=== PATIENT | female | born 1955 | race Caucasian/White ===

== ENCOUNTER 2018-01-11 08:16 | Observation (INO) | payer MEDICAID, SELFPAY ==
[2018-01-11] VITALS (19 sets, daily range): BP systolic 121–205; BP diastolic 67–106; PULSE 61–82; RESP 14–18; TEMP 36.4–37.2; O2SAT 96–100; BMI 28.6; BMI 27.6
--- NOTE | 2018-01-11 08:24 | EKG12_ITS ---
Test Reason : CP Blood Pressure : / mmHG Vent. Rate : 081 BPM Atrial Rate : 081 BPM P-R Int : 160 ms QRS Dur : 102 ms QT Int : 374 ms P-R-T Axes : 053 -01 012 degrees QTc Int : 434 ms Normal sinus rhythm Incomplete right bundle branch block Confirmed by GOLD JACOBS, CALLI ([id number]), brands editor KALA RICHEY ([id number] on 01/15/2018 2:12:42 PM Referred By: CITLALI Confirmed By:CALLI MALCOLM MD
--- NOTE | 2018-01-11 08:24 | CT_ITS ---
STUDY: CT BRAIN WITHOUT CONTRAST REASON FOR EXAM: Female, 62 years old. Dizziness and lightheadedness RADIATION DOSAGE (If Supplied By Facility): CTDIvol = ( 44.99 ) mGy, DLP = ( 779.24 ) mGycm TECHNIQUE: Transaxial CT imaging of the brain was performed without administration of intravenous contrast material. Individualized dose optimization techniques were used for this CT. COMPARISON: None. FINDINGS: Normal soft tissue structures. Normal calvarium. Normal size ventricles and extra-axial spaces for the patient's age. Normal white matter tracts of the cerebral hemispheres. Normal basal ganglia and thalami. Normal brainstem. Normal cerebellum. There is no intracranial hemorrhage. There are no findings of an acute ischemic infarction. Normal visualized paranasal sinuses. CT/Brain/Head without Contrast IMPRESSION: Chronic involutional changes of the brain. No acute hemorrhage Electronically Signed: Carroll Dukes MD at 8:45 EDT , Service support ,
--- NOTE | 2018-01-11 08:24 | RAD_ITS ---
STUDY: X-RAY CHEST REASON FOR EXAM: Female, 62 years old. Cough, dizziness TECHNIQUE: Single AP portable view of the chest. COMPARISON: None. FINDINGS: EKG leads overlie the chest There are interstitial fibrotic changes of the lungs. There is no demonstrated pleural abnormality. Normal size heart. Normal mediastinum and shahla. Normal visualized pulmonary arteries. Normal visualized aortic arch and descending thoracic aorta. Normal visualized thoracic spine. Normal visualized ribs, clavicles, and shoulders. There is no demonstrated abnormality of the visualized soft tissue structures of the upper abdomen. RAD/Chest 1 View IMPRESSION: Chronic interstitial changes, no superimposed acute pulmonary process Electronically Signed: Carroll Dukes MD at 8:56 EDT , Service support ,
--- NOTE | 2018-01-11 08:26 | ED.VISSUMM ---
- ER Visit Summary Date of Service: 01/11/18 Chief Complaint: [Dizziness, right facial numbness] History of Present Illness: The patient is a 62 F [who presents the emergency department with dizziness and feeling like her right face is drawn. It started this morning when she got out of the shower. She has a history of smoking but quit 12 years ago. She denies any other health problems. She does not visit a physician regularly. She denies any vision changes focal weakness or speech problems. She has been otherwise well.] Physical Examination: [] Blood pressure 205/95 other vitals within acceptable limits WN WD NAD PERRL EOMI MMM NECK supple and nontender, no masses RRR no murmur rub or gallop, no peripheral edema, symmetric radial pulses CTAB no respiratory distress ABDOMEN is soft and nontender, normal bowel sounds, no distension, no rebound or guarding SKIN is warm and dry no rashes Alert and Oriented x3, NIH is 1 for decreased sensation on the right face and right arm, she does have altered gait secondary to her dizziness which is a mild staggering No lymphadenopathy Test Results: [] Emergency Department Course and Treatment: [EKG is sinus at a rate of 81 with no acute ischemic changes. Blood work was unremarkable except for slightly elevated glucose. CT of the head shows chronic changes chest x-ray shows chronic changes. On reevaluation at 913 NIH remained 1. I did speak with the hospitalist regarding admission as I feel she needs further workup for possible stroke. Her blood pressure was treated. She was given 5 labetalol IV her P blood pressure was 178/78.] Treatment Plan: [] Disposition: [Admit] Impression: [TIA /stroke 2. Malignant hypertension] This note was generated with [employer] dictation software. It may contain incorrect words, spelling, and punctuation that were not noted in review of the chart prior to signing ED Disposition - Plan for ED Patient: Chief Complaint: Neuro S/Sx Referrals: Mendez Varma [Primary Care Provider] -
--- NOTE | 2018-01-11 08:28 | NURSING ---
NO OLD EKGS
[2018-01-11 08:35] LABS: Absolute Lymphocyte Count 1.36 X10^3/ul (0.83-4.51); Absolute Neutrophil Count 3.2 X10^3/uL (2.0-7.7); Basophil# 0.04 X10^3/uL; Basophil% 0.7 % (0-1); Eosinophil# 0.45 X10^3/uL; Eosinophils% 8.4 % (0-5); Hematocrit 39.6 % (37-47); Lymphocyte # 1.36 X10^3/ul (4.0); Lymphocyte % 25.3 % (19-41); Mean Corp Hgb Conc 32.8 g/gl (32-36); Mean Corpuscular Hgb 29.4 pg (27.0-32.0); Mean Corpuscular Volume 89.6 fL (81-99); Mean Platelet Vol. 9.8 fl (6.2-12.0); Monocyte# 0.32 X10^3/uL; Monocyte% 5.9 % (0-10); Neutrophil % 59.5 % (47-70); POSITIVE COUNT NO; POSITIVE DIFFERENTIAL NO; POSITIVE MORPHOLOGY NO; Platelet Count 251 K/mm3 (150-450); RBC Distribution Width CV 13.7 % (11.6-14.6); RBC Distribution Width SD 44.9 fl (35.1-43.9); Red Blood Count 4.42 M/mm3 (4.2-5.4); White Blood Count 5.4 K/mm3 (4.4-11.0)
[2018-01-11 08:42] LABS: International Normalized Ratio 0.9; Prothrombin Time (Protime)PT. 12.6 SECONDS (11.7-14.9)
[2018-01-11 08:43] LABS: Partial Thromboplast Time 28.5 Seconds (24.1-36.2)
[2018-01-11] MEDS: Labetalol 100 MG/20 ML Vial IV (08:48)
[2018-01-11 08:51] LABS: Bedside Glucose 148 mg/dL (70-110)
[2018-01-11 08:52] LABS: Anion Gap 8 (5-15); BUN 10 mg/dL (7-18); BUN/Creat Ratio 14.1 RATIO (10-20); Chloride 104 mmol/L (98-107); Creatinine, Serum 0.71 mg/dL (0.55-1.02); EST Glomerular Filtration Rate 88 mL/min (>60); Est Glom Filt Rate - Afr Amer 106 mL/min (>60); Estimated Creatinine Clearance 74.94 ml/min; Glucose 133 mg/dL (74-106); Potassium 3.8 mmol/L (3.5-5.1); Sodium Level 138 mmol/L (136-145)
--- NOTE | 2018-01-11 09:09 | NURSING ---
DR VASQUEZ FOR DR TUCKER
--- NOTE | 2018-01-11 09:13 | ED.RN ---
dr saucedo aware of bp. no further orders at this time
--- NOTE | 2018-01-11 09:32 | NURSING ---
PCU TIA,STROKE GARRETT/PAINTSIL
--- NOTE | 2018-01-11 09:42 | NURSING ---
123 NUMBNESS, TINGLING PAINTSIL
--- NOTE | 2018-01-11 10:37 | MRI_ITS ---
STUDY: MRA OF THE HEAD WITHOUT CONTRAST REASON FOR EXAM: Female, 62 years old. Numbness right face TECHNIQUE: 3-D geud-fj-niaabh (TOF) imaging was performed with MIPs. The study was performed unenhanced. COMPARISON: MR brain from today and CT brain from today FINDINGS: Normal bilateral petrous carotid arteries. Normal right cavernous carotid artery with a normal supraclinoid bifurcation. Normal left cavernous carotid artery with a normal supraclinoid bifurcation. Normal right A1 segments of the anterior cerebral artery. Normal left A1 segments of the anterior cerebral artery. Normal intact anterior communicating artery (ACOM). Normal bilateral A2 segments of the anterior cerebral arteries. Normal right M1 and M2 segments of the middle cerebral arteries, with a normal M1 bifurcation. Normal left M1 and M2 segments of the middle cerebral arteries, with a normal M1 bifurcation. There is non-visualization of the right posterior communicating artery (PCOM). There is non-visualization of the left posterior communicating artery (PCOM). Normal bilateral vertebral arteries. Normal basilar artery with a normal basilar bifurcation. The visualized bilateral superior cerebellar (SCA) arteries are normal. Normal bilateral P1, P2 and visualized P3 segments of the posterior cerebral arteries. There is no demonstrated aneurysm of the [place]. There is no major vessel occlusion or hemodynamically significant stenosis. There is no demonstrated abnormality of the visualized brain. MRI/MRA Head ONLY without Contrast IMPRESSION: Normal MRA of the head Electronically Signed: Jair Segura MD at 17:03 EDT , Service support ,
--- NOTE | 2018-01-11 10:37 | MRI_ITS ---
STUDY: MRI BRAIN WITHOUT CONTRAST REASON FOR EXAM: Female, 62 years old. Right facial numbness TECHNIQUE: Standardized multiplanar fat and water weighted pulse sequences were obtained. COMPARISON: CT brain from today FINDINGS: There is mild cerebral atrophy with widening of the extra-axial spaces and ventricular dilatation. Normal white matter tracts of the supratentorial brain. There is no evidence for recent intracranial ischemia or other cause of cytotoxic edema on diffusion weighted imaging (DWI). Normal bilateral basal ganglia. Normal thalami. There is no extra-axial fluid accumulation. Normal flow voids within the major intracranial circulation suggesting patency by spin echo criteria. Normal sella turcica, pituitary gland, infundibular stalk, optic chiasm and hypothalamus. Normal tectal plate and pineal gland. Normal midbrain, penny and medulla. Normal cerebellum. Normal basal cisterns. Normal bilateral temporal bones. Normal bilateral internal auditory canals. No demonstrated orbital abnormality, within the constraints of a routine brain study. Normal visualized paranasal sinuses. Normal calvarium and skull base. Normal visualized soft tissue structures. Normal visualized upper cervical spine. MRI/Brain without Contrast IMPRESSION: No acute disease Electronically Signed: Jair Segura MD at 16:39 EDT , Service support ,
--- NOTE | 2018-01-11 10:37 | MRI_ITS ---
STUDY: MRA NECK WITH AND WITHOUT CONTRAST REASON FOR EXAM: Female, 62 years old. Numbness and tingling right face since this morning TECHNIQUE: 3-D ndfi-ao-nnloog (TOF) imaging was performed in an 1.5 T MRI scanner. 6 ml of Gadavist was administered for the contrast enhanced images. COMPARISON: January 11, 2018 CT brain FINDINGS: RIGHT CAROTID ARTERIES: Normal right common carotid artery (CCA). Probable Flow void in bulb. Normal origin of the right internal carotid (ICA) artery without a hemodynamically significant stenosis. Normal visualized cervical portion of the right internal carotid artery. Normal origin of the right external carotid artery (ECA). LEFT CAROTID ARTERIES: Normal left common carotid artery (CCA). Probable flow void in bulb. Normal origin of the left internal carotid (ICA) artery without a hemodynamically significant stenosis. Normal visualized cervical portion of the left internal carotid artery. Normal origin of the left external carotid artery (ECA). VERTEBRAL ARTERIES: Normal antegrade flow within the bilateral vertebral artery without a hemodynamically significant stenosis. IMPRESSION: Motion limited exam. Probable flow void in the bulbs bilaterally although thrombus is difficult to exclude. Follow-up CTA would be more sensitive if clinically warranted. Electronically Signed: Jair Segura MD at 16:14 EDT , Service support , MRI/MRA Neck WITH and W/O Contrast
--- NOTE | 2018-01-11 11:27 | PCM.CONS.GEN ---
Reason for Consult Date of Consultation: 01/11/18 Reason for Consultation: RIGHT FACIAL NUMB History of Present Illness: The patient is a 62 year old left handed white female presented with right facial numbness starting about 630am noted after getting out of shower. also felt like she was going to pass out. reports light headed has passed but still right facial sensory loss. no other body part affect. no recent trigger except has had new glasses recently. per er note: The patient is a 62 F [who presents the emergency department with dizziness and feeling like her right face is drawn. It started this morning when she got out of the shower. She has a history of smoking but quit 12 years ago. She denies any other health problems. She does not visit a physician regularly. She denies any vision changes focal weakness or speech problems. She has been otherwise well.] Past Medical History Allergies No Known Allergies Allergy (Verified 01/11/18 08:19) Home Medications: Ambulatory Orders Medication Instructions Recorded Ibuprofen [Motrin] 400 mg PO DAILY PRN 01/11/18 Smoking Status: Former smoker Alcohol: None Drugs: None Review of Systems Constitutional: Denies: Chills, Fever, Weight Change HEENT: Denies: Head Aches, Sinus Congestion, Sinus Drainage Cardiovascular: Denies: Chest Pain, Palpitations Respiratory: Denies: Cough, Shortness of breath at rest, Sputum production Gastrointestinal: Denies: Abdominal Pain, Nausea, Vomiting Genitourinary: Denies: Dysuria Musculoskeletal: Denies: Joint Pain, Joint Tenderness Skin: Denies: Rash, Wounds Neurological: Denies: Numbness, Tingling, Focal weakness Psychiatric: Denies: Anxiety, Depression, Homicidal Ideations, Suicidal Ideations Hematologic/ Lymphatic: Denies: Easy Bruising, Easy Bleeding - Physical Exam General: Alert, Oriented x3, Cooperative HEENT: Atraumatic, PERRLA, EOMI, Normocephalic Neck: Supple, No JVD, Negative Carotid Bruits Lungs: Clear to auscultation, Normal air movement Cardiovascular: Regular rate, No murmurs Abdomen: Bowel Sounds Present, Soft, Non Tender Extremities: No edema, Capillary Refill Less than 3 Seconds Skin: No rashes, No breakdown Musculoskeletal: No Tenderness to Palpation of Joints or Extremities Neurological: Cranial nerves II-XII grossly intact Psych/Mental Status: Normal Affect, Appropriate Vital Signs Temp Pulse Resp BP Pulse Ox 36.6 C 80 18 150/92 H 98 01/11/18 10:20 01/11/18 10:56 01/11/18 10:20 01/11/18 10:30 01/11/18 10:30 Oxygen Flow Rate (L/min) 2 Oxygen Delivery Method Room Air Weight: 77.7 kg Body Mass Index (BMI) 27.6 Current Home Med List Medication Instructions Recorded Confirmed Type Ibuprofen [Motrin] 400 mg PO DAILY PRN 01/11/18 01/11/18 History Current Medications Generic Name Dose Route Start Last Admin Trade Name Freq PRN Reason Stop Dose Admin Acetaminophen 650 mg 01/11/18 10:37 Tylenol PO Q6H PRN PRN Mild Pain (1-3)/Temp > 100.7 F Aspirin 81 mg 01/12/18 08:00 Aspirin, Baby PO DAILY@0800 [facility] Bisacodyl 5 mg 01/11/18 10:37 Dulcolax PO DAILY PRN PRN Constipation Enoxaparin Sodium 40 mg 01/11/18 10:37 Lovenox SC DAILY@1000 [facility] Magnesium Hydroxide 30 ml 01/11/18 10:37 Milk Of Magnesia PO DAILY PRN Constipation Psyllium Hydrophilic Mucilloid 1 packet 01/11/18 10:37 Metamucil PO DAILY PRN PRN CONSTIPATION Laboratory Results - last 24 hr 01/11/18 01/11/18 01/11/18 08:20 08:20 08:20 WBC 5.4 RBC 4.42 Hgb 13.0 Hct 39.6 MCV 89.6 MCH 29.4 MCHC 32.8 RDW 13.7 RDW Differential 44.9 H Plt Count 251 MPV 9.8 Immature Gran % (Auto) 0.200 Neut % (Auto) 59.5 Lymph % (Auto) 25.3 Twiggs % (Auto) 5.9 Eos % (Auto) 8.4 H Baso % (Auto) 0.7 Absolute Neuts (auto) 3.2 Absolute Lymphs (auto) 1.36 Total Counted Not Reportable PT 12.6 INR 0.9 APTT 28.5 Sodium 138 Potassium 3.8 Chloride 104 Carbon Dioxide 26.0 Anion Gap 8 BUN 10 Creatinine 0.71 Estim Creat Clear Calc 74.94 Est GFR (MDRD) Af Amer 106 Est GFR (MDRD) Non-Af 88 BUN/Creatinine Ratio 14.1 Glucose 133 H Calcium 9.0 Troponin I < 0.015 POC Glucose 01/11/18 08:44 WBC RBC Hgb Hct MCV MCH MCHC RDW RDW Differential Plt Count MPV Immature Gran % (Auto) Neut % (Auto) Lymph % (Auto) Twiggs % (Auto) Eos % (Auto) Baso % (Auto) Absolute Neuts (auto) Absolute Lymphs (auto) Total Counted PT INR APTT Sodium Potassium Chloride Carbon Dioxide Anion Gap BUN Creatinine Estim Creat Clear Calc Est GFR (MDRD) Af Amer Est GFR (MDRD) Non-Af BUN/Creatinine Ratio Glucose Calcium Troponin I POC Glucose 148 H Assessment/Plan right facial numbness, possible thalamic infarct await mri echo tele asa statin
--- NOTE | 2018-01-11 12:48 | HP.PCM_ITS ---
Problem List (1) TIA (transient ischemic attack) Status: Acute (2) Alcohol use disorder, moderate, dependence Status: Chronic History of Present Illness Date of Admission: 01/11/18 Chief Complaint: Right facial numbness - 1 day The patient is a 62 year old F with no significant past medical history who comes in with complaints of right facial numbness that started this morning. Patient had complained of the face feeling drawn, her pain when she was getting out of shower. No other weakness or numbness in any part of her body. Denied any dizziness or chest pain or palpitation. NIHSS score was 1 for decreased sensation in the right face and right arm in the emergency room. Vitals in the emergency room was informed for temperature 91.1 F, heart rate of 82, blood pressure 205/95, respiratory rate of 16, SPO2 of 98% Admitting blood work was unremarkable. CT scan of the brain showed chronic involuntary changes. 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 Lives: With Family Smoking Status: Former smoker Alcohol: Heavy Drugs: None - *Family History Maternal History Items: Heart Disease Paternal History Items: Heart Disease Review of Systems Constitutional: Denies: Anorexia, Chills, Fever, Night Sweats, Weakness, Weight Change Eyes: Denies: Blurred vision, Cataracts, Conjunctivae Inflammation, Pain, Redness HEENT: Denies: Difficulty Hearing, Difficulty Swallowing, Head Aches, Hearing Changes, Sinus Congestion, Sinus Drainage, Sore Throat Cardiovascular: Denies: Chest Pain, Claudication, Chest Pressure, Orthopnea, Palpitations Respiratory: Denies: Cough, Hemoptysis, Pleuritic Pain, Shortness of breath at rest, Shortness of breath upon exertion, Sputum production Gastrointestinal: Denies: Abdominal Pain, Constipation, Hematemesis, Hematochezia, Nausea, Vomiting Genitourinary: Denies: Dysuria, Frequency, Incontinence Musculoskeletal: Denies: Joint Pain, Joint stiffness, Joint swelling, Joint Tenderness Skin: Denies: Rash, Wounds Neurological: Reports: Numbness - right side of face, Tingling. Denies: Focal weakness Psychiatric: Denies: Anxiety, Depression, Homicidal Ideations, Suicidal Ideations Endocrine: Denies: Change in Body Habitus, Heat/ Cold Intolerance Hematologic/ Lymphatic: Denies: Easy Bruising, Easy Bleeding VTE Information - Inpt Only VTE Present on Admission: No VTE Pharm Prophylaxis ordered?: Yes Patient Problems: Active and Suspected Problems TIA (transient ischemic attack) (Acute) - Physical Exam General: Alert, Oriented x3, Cooperative, No apparent distress HEENT: Atraumatic, PERRLA, EOMI, Normocephalic Oral: Moist Mucosa Neck: Supple, No JVD, Negative Carotid Bruits Lungs: Clear to auscultation, Normal air movement Cardiovascular: Regular rate, No murmurs Abdomen: Bowel Sounds Present, Soft, Non Tender Extremities: No edema, Capillary Refill Less than 3 Seconds Skin: No rashes, No breakdown Musculoskeletal: No Tenderness to Palpation of Joints or Extremities Lymphatic: No Cervical, Supraclavicular, or Inguinal Adenopathy Neurological: Cranial nerves II-XII grossly intact, Neuro grossly intact Psych/Mental Status: Normal Affect, Appropriate Vital Signs Temp Pulse Resp BP Pulse Ox 97.9 F 80 18 150/92 H 98 01/11/18 10:20 01/11/18 10:56 01/11/18 10:20 01/11/18 10:30 01/11/18 10:30 Oxygen Flow Rate (L/min) 2 Oxygen Delivery Method Room Air Weight: 77.7 kg Body Mass Index (BMI) 27.6 Laboratory Tests Past 24 Hrs 01/11/18 11:24 Troponin I < 0.015 Assessment/Plan All Active Problems TIA (transient ischemic attack) (Acute) 62 year old F with no significant past medical history who comes in with complaints of right facial numbness that started this morning. 1. Acute right-sided facial numbness likely secondary to TIA/CVA, risk factors are age, hypertension PLan: Admit to PCU, stroke work-up, neuro consult, aspirin 81mg daily, atorvastatin 20 mg QHS, follow-up on imaging- MRI brain, MRA head, neck, 2d-echo , lipid profile 2. Accelerated hypertension, will treat after MRI brain rules out CVA, lisinopril 10mg po daily, prn hydralazine. 3. Alcohol dependence, on CIWA and prn Ativan 4. DVT PPx- Lovenox SC Code Visit Inpatient E&M: 67413 Init Hosp L3
[2018-01-11] MEDS: Enoxaparin 40 MG/0.4 ML Syringe SC (13:27)
[2018-01-11] MEDS: Lisinopril 10 MG Tablet PO (18:18)
[2018-01-11] MEDS: Atorvastatin Calcium 20 MG Tablet PO (21:16)
[2018-01-12 03:05] VITALS: PULSE 57
[2018-01-12 03:40] VITALS: BP 119/65; PULSE 72; RESP 14; TEMP 36.4; O2SAT 97
[2018-01-12 06:15] LABS: Anion Gap 9 (5-15); BUN 13 mg/dL (7-18); BUN/Creat Ratio 20.6 RATIO (10-20); Calcium,Total 8.6 mg/dL (8.5-10.1); Chloride 107 mmol/L (98-107); Cholesterol 179 mg/dL (200); Creatinine, Serum 0.63 mg/dL (0.55-1.02); EST Glomerular Filtration Rate 100 mL/min (>60); Est Glom Filt Rate - Afr Amer 122 mL/min (>60); Estimated Creatinine Clearance 84.45 ml/min; Glucose 112 mg/dL (74-106); High Density Lipoprotein 56 mg/dL; Potassium 3.8 mmol/L (3.5-5.1); Sodium Level 143 mmol/L (136-145); Triglycerides 167 mg/dL; Very Low Density Lipoprotein 33 mg/dL (5-40)
[2018-01-12 06:59] VITALS: PULSE 108
[2018-01-12 07:34] VITALS: BP 123/60; PULSE 56; RESP 18; TEMP 36.4; O2SAT 96
[2018-01-12] MEDS: Enoxaparin 40 MG/0.4 ML Syringe SC (07:36)
[2018-01-12] MEDS: Thiamine Hydrochloride 100 MG Tablet PO (07:36)
[2018-01-12] MEDS: Aspirin 81 MG TAB.CHEW PO (07:36)
[2018-01-12] MEDS: Lisinopril 10 MG Tablet PO (07:37)
[2018-01-12] MEDS: Folic Acid/Vitamin B Comp W-C 1 Capsule 1 CAP PO (07:37)
[2018-01-12 10:59] VITALS: PULSE 65
[2018-01-12 11:30] VITALS: BMI 27.6
--- NOTE | 2018-01-12 11:33 | CT_ITS ---
STUDY: CTA NECK WITH CONTRAST REASON FOR EXAM: Female, 62 years old. FOLLOW UP ABNORMAL MRA. RADIATION DOSAGE (If Supplied By Facility): CTDIvol = ( 19.05 ) mGy, DLP = ( 545.93 ) mGycm TECHNIQUE: CT angiography with multi-detector data acquisition was performed from the aortic arch to the skull base following intravenous administration of 100CC ml of Isovue 370 contrast. MIP images were reconstructed from the axial data set. Post-processing of the angiographic images was performed, with multiplanar reformation and 3D reconstruction. Individualized dose optimization techniques were used for this CT. COMPARISON: None. FINDINGS: AORTIC ARCH: There is mild atherosclerotic plaque RIGHT CAROTID ARTERIES: Normal right common carotid artery (CCA). There is mild atherosclerotic plaque formation with minimal narrowing of the right carotid bulb. There is mild atherosclerotic plaque formation of the origin of the right internal carotid artery with less than 50% cross sectional diameter stenosis. Normal visualized cervical portion of the right internal carotid artery. Normal origin of the right external carotid artery (ECA). LEFT CAROTID ARTERIES: Normal left common carotid artery (CCA). There is moderate atherosclerotic plaque formation with moderate narrowing of the carotid bulb. There is mild atherosclerotic plaque formation of the origin of the left internal carotid artery with approximately 50% cross sectional diameter stenosis. Normal visualized cervical portion of the left internal carotid artery. Normal origin of the left external carotid artery (ECA). VERTEBRAL ARTERIES: Normal bilateral vertebral arteries. CT/CTA Neck W/WO Contrast IMPRESSION: 50% stenosis of the left ICA. Less than 50% stenosis of the right ICA. Electronically Signed: Larua Mayer MD at 12:21 EDT Tel , Service support ,
--- NOTE | 2018-01-12 12:03 | DS.PCM_ITS ---
Discharge Date and Diagnosis Date of Admission: 01/11/18 Date of Discharge: 01/12/18 - Primary Discharge Diagnosis Active and Suspected Problems TIA (transient ischemic attack) (Acute) Accelerated hypertension/hypertensive urgency Alcohol dependency - Secondary Discharge Diagnosis Chronic Problems Alcohol use disorder, moderate, dependence (Chronic) Hospital Course and Treatment Imaging Results: Clinical Impression(s) from Imaging Studies Brain CT 01/11/18 08:24 IMPRESSION: Chronic involutional changes of the brain. No acute hemorrhage Electronically Signed: Carroll Dukes MD at 8:45 EDT , Service support , Chest X-Ray 01/11/18 08:24 IMPRESSION: Chronic interstitial changes, no superimposed acute pulmonary process Electronically Signed: Carroll Dukes MD at 8:56 EDT , Service support , Brain MRI 01/11/18 10:37 IMPRESSION: No acute disease Electronically Signed: Jair Segura MD at 16:39 EDT , Service support , Head MRA 01/11/18 10:37 IMPRESSION: Normal MRA of the head Electronically Signed: Jair Segura MD at 17:03 EDT , Service support , Neck MRA 01/11/18 10:37 Neck CTA 01/12/18 11:33 IMPRESSION: 50% stenosis of the left ICA. Less than 50% stenosis of the right ICA. Electronically Signed: Laura Mayer MD at 12:21 EDT Tel , Service support , 01/12/18 11:33 CTA Neck W/WO Contrast [CT] Urgent Neurology Operations: None Procedures: 2-D Echocardiogram Summary of Care Provided: 62 year old F with no significant past medical history is admitted in with complaints of right facial numbness that started on the morning of the admission. 1. Acute right-sided facial numbness likely secondary to TIA. CT scan of the brain initially did not show any acute hemorrhage . MRI of brain was negative for acute stroke. MRA of head was negative. MRA of the neck showed probable flow void in the bulbs bilaterally, thrombus was said to be difficult to exclude. CTA of the head showed 50% stenosis of the left ICA , less than 50% stenosis of right ICA. Lipid profile showed total triglycerides of 167, total cholesterol 179, LDL 90, HDL 56 He was started on aspirin 81 mg p.o. daily, atorvastatin 20 mg daily. Neurology was consulted, patient's 2D echo was pending. 2. Accelerated hypertension/hypertensive urgency, BP was initially uncontrolled , improved during the admission, started on lisinopril 10mg po daily, follow up with a primary care doctor in the outpatient. 3. Alcohol dependence, advised to quit, managed on CIWA and prn Ativan Discharge Diet: Low fat/ Low Cholesterol, 2000 mg Sodium Diet Discharge Activity: Return to Normal Activity Home Medications: Medications to take at Discharge Aspirin [Aspirin, Baby] 81 mg PO DAILY@0800 #30 tab.chew 01/12/18 Atorvastatin Calcium [Lipitor] 20 mg PO QHS #30 tab 01/12/18 Folic Acid 1 mg PO DAILY #30 tab 01/12/18 Lisinopril [Zestril] 10 mg PO DAILY #30 tab 01/12/18 Thiamine Hydrochloride [Vitamin B1] 100 mg PO DAILYCM #30 tab 01/12/18 Following Prescrptions Were Given to Patient: Aspirin [Aspirin, Baby] 81 mg PO DAILY@0800 #30 tab.chew Atorvastatin Calcium [Lipitor] 20 mg PO QHS #30 tab Folic Acid 1 mg PO DAILY #30 tab Lisinopril [Zestril] 10 mg PO DAILY #30 tab Thiamine Hydrochloride [Vitamin B1] 100 mg PO DAILYCM #30 tab Primary Care Physician: Mendez Varma [Primary Care Provider] - Please follow up with your Primary Care Physician in: within 1-2 weeks Disposition: Home Minutes spent on discharge:: 35 Patient Condition:: Stable Medical Necessity - Tobacco Use Smoking Status: Former smoker Meaningful Use Info Meaningful Use Diagnoses (Choose all that apply): None applicable Code Visit Inpatient E&M: 07930 Disch Hosp
--- NOTE | 2018-01-12 12:03 | DCINST_ITS ---
- Discharge Diagnoses Current Active Problems: Current Active and Chronic Problems TIA (transient ischemic attack) (Acute) Alcohol use disorder, moderate, dependence (Chronic) Reason(s) for Visit for Discharge Instructions: Right sided facial numbness You will use the following diet at home:: Cardiac Your food should be the consistency of: Regular Your liquids should be the consistency of: Regular/Thin Discharge Activity: Return to Normal Activity Additional Instructions: You are advised to quit drinking. Limit alcohol use to 1 drink/day. Continue on aspirin, atorvastatin. You have been started on Lisinopril for blood pressure. Follow-up with your primary doctor for follow-up of BP. You will also need repeat blood work when you see your primary care doctor. You have been prescribed folic acid and thiamine for 1 month. Allergies/Adverse Reactions: Allergies No Known Allergies Allergy (Verified 01/11/18 08:19) Medications to take at Discharge Aspirin [Aspirin, Baby] 81 mg PO DAILY@0800 #30 tab.chew 01/12/18 Atorvastatin Calcium [Lipitor] 20 mg PO QHS #30 tab 01/12/18 Folic Acid 1 mg PO DAILY #30 tab 01/12/18 Lisinopril [Zestril] 10 mg PO DAILY #30 tab 01/12/18 Thiamine Hydrochloride [Vitamin B1] 100 mg PO DAILYCM #30 tab 01/12/18 The following prescriptions were given: Aspirin [Aspirin, Baby] 81 mg PO DAILY@0800 #30 tab.chew Atorvastatin Calcium [Lipitor] 20 mg PO QHS #30 tab Folic Acid 1 mg PO DAILY #30 tab Lisinopril [Zestril] 10 mg PO DAILY #30 tab Thiamine Hydrochloride [Vitamin B1] 100 mg PO DAILYCM #30 tab Orders to be completed after discharge: Basic Metabolic Profile (BMP) Time Frame: 1 Week, Location: Laboratory Primary Care Physician: Mendez Varma [Primary Care Provider] - Please follow up with your Primary Care Physician in: within 1-2 weeks Test Results: Test results from this visit will be discussed in further detail at your follow- up appointment, if applicable. Proposed Discharge Date: 01/12/18
[2018-01-12 12:16] VITALS: BP 122/56; PULSE 64; RESP 18; TEMP 36.6; O2SAT 99
== END 2018-01-12 14:09 | disposition home or self-care (01) ==
LOC: ED 09:04 → PCU 09:59
PROVIDERS: Admitting Provider Internal Medicine; Emergency Provider Emergency Medicine; Family Provider Family Medicine; PCP Family Medicine; Visit Provider Internal Medicine
DX: G45.9 Transient cerebral ischemic attack, unspecified (principal); I10 Essential (primary) hypertension; I16.0 Hypertensive urgency; F10.20 Alcohol dependence, uncomplicated; Z87.891 Personal history of nicotine dependence
CPT/HCPCS: 36415; 70450; 70498; 70544; 70549; 70551; 71045; 80048; 80061; 82962; 84484; 85025; 85610; 85730; 92526; 93005; 96372; 96374; 97802; 99218; 99285; A9585; Q9967; A4216; G0378

== ENCOUNTER → 2018-01-21 10:27 | Outpatient (CLI) | payer MEDICARE, MEDICAID, SELFPAY ==
[2018-01-21 12:07] LABS: Anion Gap 6 (5-15); BUN 12 mg/dL (7-18); BUN/Creat Ratio 16.8 RATIO (10-20); Calcium,Total 9.2 mg/dL (8.5-10.1); Chloride 104 mmol/L (98-107); Creatinine, Serum 0.71 mg/dL (0.55-1.02); EST Glomerular Filtration Rate 87 mL/min (>60); Est Glom Filt Rate - Afr Amer 106 mL/min (>60); Glucose 98 mg/dL (74-106); Potassium 4.3 mmol/L (3.5-5.1); Sodium Level 137 mmol/L (136-145)
== END ==
PROVIDERS: Family Provider Family Medicine; PCP Family Medicine; Visit Provider Internal Medicine
DX: I10 Essential (primary) hypertension (principal); Z86.73 Personal history of transient ischemic attack (TIA), and cerebral infarction without residual deficits
CPT/HCPCS: 36415; 80048

== ENCOUNTER → 2018-02-12 13:08 | Outpatient (CLI) | payer MEDICARE, MEDICAID, SELFPAY ==
[2018-02-12 14:04] LABS: Anion Gap 10 (5-15); BUN 14 mg/dL (7-18); BUN/Creat Ratio 17.6 RATIO (10-20); Calcium,Total 9.9 mg/dL (8.5-10.1); Chloride 104 mmol/L (98-107); EST Glomerular Filtration Rate 77 mL/min (>60); Est Glom Filt Rate - Afr Amer 93 mL/min (>60); Glucose 98 mg/dL (74-106); Potassium 4.4 mmol/L (3.5-5.1); Sodium Level 137 mmol/L (136-145)
[2018-02-12 14:19] LABS: Hemoglobin A1c 5.6 % (4.2-6.3)
== END ==
PROVIDERS: Family Provider Family Medicine; PCP Family Medicine; Visit Provider Family Medicine
DX: I10 Essential (primary) hypertension (principal); R73.01 Impaired fasting glucose
CPT/HCPCS: 36415; 80048; 83036

== ENCOUNTER 2018-12-24 19:58 | Emergency (ER) | payer MEDICARE, SELFPAY ==
[2018-12-24 20:00] VITALS: BP 177/96; PULSE 101; RESP 17; TEMP 37; O2SAT 97; BMI 27.8
--- NOTE | 2018-12-24 20:40 | ED.VISSUMM ---
- ER Visit Summary Date of Service: 12/24/18 Chief Complaint: Foreign body sensation throat History of Present Illness: The patient is a 63 F presenting with foreign body sensation throat. Patient was eating a pork chop last night. She states since that time she has been unable to swallow. When trying to swallow she has to spit out liquids immediately. This happened 4 to 5 years ago as well. At that time she had endoscopy per Dr. Mathur. Denies other complaints. Physical Examination: Vitals are stable. Patient is afebrile. Alert no acute distress. HEENT exam is unremarkable. Neck is supple. Lungs are clear and equal bilaterally. Heart is regular rate and rhythm. Abdomen is soft nontender nondistended. Extremities are unremarkable. Skin is warm and dry. No focal neurologic deficit. Remainder of exam is unremarkable. Emergency Department Course and Treatment: Patient was given glucagon IV. She is now able to tolerate p.o. Her symptoms have resolved. She is advised to follow up with Dr. Langston. Advised return to ED for worsening complaints. Disposition: Discharge home Impression: Esophageal foreign body, resolved This note was generated with [employer] customer insight dictation software. It may contain incorrect words, spelling, and punctuation that were not noted in review of the chart prior to signing ED Disposition - Plan for ED Patient: Referrals: Mendez Varma [Primary Care Provider] -
[2018-12-24] MEDS: Glucagon 1 MG/ML Syringe IV (20:55)
--- NOTE | 2018-12-24 21:34 | ED.DEP ---
ED Disposition - Plan for ED Patient: Instructions: ESOPHAGEAL FOREIGN BODY, Resolved Referrals: Mendez Varma [Primary Care Provider] - Jamaal Langston MD [NON-STAFF] -
[2018-12-24 21:56] VITALS: BP 143/74; PULSE 84; RESP 17; O2SAT 98
== END 2018-12-24 21:56 | disposition home or self-care (01) ==
PROVIDERS: Emergency Provider Emergency Medicine; Family Provider Family Medicine; PCP Family Medicine
DX: T18.128A Food in esophagus causing other injury, initial encounter (principal); X58.XXXA Exposure to other specified factors, initial encounter; Y93.9 Activity, unspecified; Y92.9 Unspecified place or not applicable; I10 Essential (primary) hypertension; E78.00 Pure hypercholesterolemia, unspecified; Z79.82 Long term (current) use of aspirin; Z79.899 Other long term (current) drug therapy
CPT/HCPCS: 96374; 99284; J7030; A4216; J1610

== ENCOUNTER → 2018-12-31 | Outpatient (CLI) | payer MEDICARE, SELFPAY ==
[2018-12-24 20:00] VITALS: BMI 27.8
[2018-12-31 17:30] LABS: Absolute Lymphocyte Count 1.66 X10^3/uL (0.83-4.51); Absolute Neutrophil Count 4.7 X10^3/uL (2.0-7.7); Basophil# 0.05 X10^3/uL; Basophil% 0.7 % (0-1); Eosinophil# 0.43 X10^3/uL; Eosinophils% 5.8 % (0-5); Hematocrit 38.5 % (37-47); Hemoglobin 12.6 g/dL (12.0-15.0); Lymphocyte # 1.66 X10^3/ul (4.0); Lymphocyte % 22.4 % (19-41); Mean Corp Hgb Conc 32.7 g/dL (32-36); Mean Corpuscular Hgb 29.7 pg (27.0-32.0); Mean Corpuscular Volume 90.8 fL (81-99); Mean Platelet Vol. 10.5 fl (6.2-12.0); Monocyte% 6.7 % (0-10); NRBC Flagged by Analyzer 0 % (0-5); Neutrophil # 4.74 X10^3/uL (2.7-7.7); Platelet Count 259 K/mm3 (150-450); Red Blood Count 4.24 M/mm3 (4.2-5.4); White Blood Count 7.4 K/mm3 (4.4-11.0)
[2018-12-31 18:17] LABS: Anion Gap 9 (5-15); BUN 14 mg/dL (7-18); BUN/Creat Ratio 20.8 RATIO (10-20); Calcium,Total 9.4 mg/dL (8.5-10.1); Chloride 102 mmol/L (98-107); Creatinine, Serum 0.67 mg/dL (0.55-1.02); EST Glomerular Filtration Rate 93 mL/min (>60); Est Glom Filt Rate - Afr Amer 113 mL/min (>60); Glucose 79 mg/dL (74-106); Potassium 3.7 mmol/L (3.5-5.1); Sodium Level 138 mmol/L (136-145)
== END | disposition home or self-care (01) ==
LOC: BFHLAB 16:32
PROVIDERS: Family Provider Family Medicine; PCP Family Medicine; Visit Provider Family Medicine
DX: I10 Essential (primary) hypertension (principal); E78.5 Hyperlipidemia, unspecified; Z86.73 Personal history of transient ischemic attack (TIA), and cerebral infarction without residual deficits
CPT/HCPCS: 36415; 80048; 84443; 85025

== ENCOUNTER → 2019-01-15 | Outpatient (CLI) | payer MEDICARE, SELFPAY ==
[2018-12-24 20:00] VITALS: BMI 27.8
--- NOTE | 2019-01-15 12:55 | CDU_ITS ---
Reason For Study: Hx of TIA Rt. Velocities/BP Lt. Velocities/BP Prox CCA 81/19 cm/sec. Prox CCA 106/23 cm/sec. Mid CCA 70/18 cm/sec. Mid CCA 72/22 cm/sec. Dist CCA 79/19 cm/sec. Dist CCA 80/23 cm/sec. Prox ICA 92/30 cm/sec. Prox ICA 105/30 cm/sec. Mid ICA 92/30 cm/sec. Mid ICA 116/43 cm/sec. Dist ICA 94/31 cm/sec. Dist ICA 82/28 cm/sec. Rt. ICA/CCA = 1.3. Lt. ICA/CCA = 1.6. Prox ECA 155/23 cm/sec. Prox ECA 120/18 cm/sec. Rt. Vert. 32/9 cm/sec. Lt. Vert. 51/16 cm/sec. Right Extracranial There is homogeneous, smooth atherosclerotic plaque noted in the right common carotid artery. There is heterogeneous, irregular atherosclerotic plaque noted in the right internal carotid artery. There is heterogeneous, irregular atherosclerotic plaque noted in the right external carotid artery. Antegrade flow is noted in the right vertebral artery. Left Extracranial There is intimal thickening but no significant atherosclerotic plaque noted in the left common carotid artery. There is heterogeneous, irregular atherosclerotic plaque noted in the left internal carotid artery. There is heterogeneous, irregular atherosclerotic plaque noted in the left external carotid artery. Antegrade flow is noted in the left vertebral artery. Procedure Carotid Duplex [id number]. Exam performed in department. Interpretation Summary Mild (<50%) stenosis right extracranial internal carotid. Mild (<50%) stenosis left extracranial internal carotid. Flow within the vertebral arteries is antegrade bilaterally. Ordering Physician: Mendez Varma Referring Physician: Mendez Varma Performed By: Diane Markham, DORCAS, RVT
== END | disposition home or self-care (01) ==
LOC: CVS 12:53
PROVIDERS: Family Provider Family Medicine; PCP Family Medicine; Referring Provider Family Medicine; Visit Provider Family Medicine
DX: I65.23 Occlusion and stenosis of bilateral carotid arteries (principal)
CPT/HCPCS: 93880

== ENCOUNTER 2020-02-01 08:18 | Emergency (ER) | payer MEDICARE, SELFPAY ==
[2020-02-01] VITALS (10 sets, daily range): BP systolic 135–181; BP diastolic 64–101; PULSE 62–105; RESP 15–23; TEMP 36.8; O2SAT 96–100; BMI 27.4
--- NOTE | 2020-02-01 08:34 | EKG12_ITS ---
Test Reason : FOREIGN BODY Blood Pressure : / mmHG Vent. Rate : 066 BPM Atrial Rate : 066 BPM P-R Int : 160 ms QRS Dur : 096 ms QT Int : 392 ms P-R-T Axes : 054 019 018 degrees QTc Int : 410 ms Normal sinus rhythm with sinus arrhythmia RSR' or QR pattern in V1 suggests right ventricular conduction delay Borderline ECG Confirmed by JESSE JACOBS, GWEN ([id number]), scientific publications editor JESUS SCHERER ([id number]) on 02/02/2020 2:44:20 PM Referred By: NARESH Confirmed By:GWEN MOLINA MD
--- NOTE | 2020-02-01 08:35 | RAD_ITS ---
STUDY: X-RAY CHEST REASON FOR EXAM: Female, 65 years old. Hemoptysis, choked on a hamburger last night now unable to swallow and coughing up blood. TECHNIQUE: PA and lateral chest COMPARISON: 01/11/2018 FINDINGS: There is no visible radiodense foreign body along the course of the esophagus. Trachea and proximal bronchial air stripes appear patent. The lungs are clear bilaterally, symmetrically and normally inflated. Normal cardiomediastinal silhouette. RAD/Chest PA and Lateral IMPRESSION: No acute thoracic process is evident. Electronically Signed: Ulises Ambrosio MD at 9:35 EDT Tel , Service support ,
--- NOTE | 2020-02-01 08:35 | ED.VIS.GEN ---
History of Present Illness Chief Complaint: Foreign Body Informant: Patient Onset: Yesterday Context: Sudden Onset Timing: Continuous Narrative: Patient is a 65-year-old female with history of esophageal impaction, resolved with IV glucagon 1 year ago, hypertension, hyperlipidemia and TIA presenting with foreign body sensation in her esophagus. Patient states eating hamburger last night when she felt like a piece got stuck. She threw up most of it she thought she still not been able to tolerate anything by mouth since. She is anytime she tries to drink water she will throw up. She not take her medication this morning because of it. She states this morning she had an episode of coughing and throwing up and blood came out. She denies any clots of blood. She states it was just red liquid. She also had an episode of severe right upper quadrant abdominal pain lasting for 2 to 3 minutes during her coughing episode. Patient not sure if the blood came from her esophagus or her lungs. She denies any history of hemoptysis or hematemesis. She denies any change in bowel movements. She states she now has a dull pain in her right upper quadrant from the episode. Patient's last EGD was 2 to 3 years ago and she states it was normal. She never followed up with GI after her esophageal food bolus last year. Patient denies associated chest pain or difficulty breathing. States she is otherwise feeling well before she ate last night. No other complaints at this time. Patient is on 81 mg of aspirin daily but no other anticoagulation. Past Medical History - Allergies and Home Meds Allergies/Adverse Reactions: Allergies No Known Allergies Allergy (Verified 02/01/20 08:21) Primary Care Physician: Sg Jon MD [STAFF PHYSICIAN] - 1 Week Mendez Varma [Primary Care Provider] - Past Medical History: - - TIA, hypertension, hyperlipidemia Surgical History: noncontributory, - - Tubal ligation Smoking Status: Former smoker - Family History Maternal Family History: Reports: Heart Disease Paternal Family History: Reports: Heart Disease Review of Systems General: Denies: Chills, Fever, Sweats Eyes: Denies: Visual changes - bilaterally, Diplopia ENT: Denies: Rhinorrhea, Sore throat Cardiovascular: Denies: Chest pain, Palpitations Respiratory: Reports: Cough, - - Hemoptysis. Denies: Dyspnea, Dyspnea on exertion Gastrointestinal: Reports: Abdominal pain, Vomiting. Denies: Nausea, Diarrhea, Melena, Hematochezia Genitourinary: Denies: Dysuria, Hematuria, Frequency Musculoskeletal: Denies: Back pain, Extremity Pain Skin: Denies: Rash, Wounds Neurological: Denies: Headache, Weakness, Numbness Physical Exam Vital Signs/Narrative: Vital Signs Temp Pulse Resp BP Pulse Ox 02/01/20 08:18 98.2 F 99 16 157/101 H 100 Inital Vital Signs reviewed: Yes General: Well nourished, Well developed, No Acute Distress Head: Normocephalic, Atraumatic Eyes: Perrl, EOMI. Negative for: Pale conjunctiva ENT: Moist mucous membranes, No rhinorrhea Neck: Supple, Nontender, No JVD Cardiovascular: Regular rate, Regular rhythm, No murmurs Respiratory: No distress, CTA bilaterally, Chest nontender Abdomen: Soft, Nontender, Nondistended, Normal bowel sounds. Negative for: Guarding, Rebound tenderness, Armenta's sign Back: Nontender, Normal Inspection Extremities: Nontender, No edema Skin: Normal color, No rash Neurological: Alert, Oriented x3, Cranial nerves II-XII grossly intact, Normal Strength, Normal Sensation Psychological: Normal affect, Normal Mood Diagnostic/Tx/Re-eval Clinical Impression(s) from Imaging Studies Chest X-Ray 02/01/20 08:35 IMPRESSION: No acute thoracic process is evident. Electronically Signed: Ulises Ambrosio MD at 9:35 EDT Tel , Service support , Laboratory Data 02/01/20 02/01/20 02/01/20 08:58 08:58 08:58 WBC 8.0 RBC 4.46 Hgb 13.1 Hct 40.6 MCV 91.0 MCH 29.4 MCHC 32.3 RDW Std Deviation 43.6 RDW Coeff of [place] 13.2 Plt Count 251 MPV 9.6 Immature Gran % (Auto) 0.100 Neut % (Auto) 74.0 H Lymph % (Auto) 11.9 L [place] % (Auto) 7.0 Eos % (Auto) 6.5 H Baso % (Auto) 0.5 Absolute Neuts (auto) 6.0 Absolute Lymphs (auto) 0.96 Nucleated RBC % 0 PT 12.6 INR 1.0 Sodium 142 Potassium 3.9 Chloride 109 H Carbon Dioxide 27.0 Anion Gap 6 BUN 8 Creatinine 0.72 Estim Creat Clear Calc 51.11 Est GFR (MDRD) Af Amer 104 Est GFR (MDRD) Non-Af 86 BUN/Creatinine Ratio 11.1 Glucose 122 H Calcium 9.1 Total Bilirubin 1.00 AST 17 ALT 27 Alkaline Phosphatase 133 H Troponin I < 0.015 Total Protein 7.7 Albumin 4.0 Globulin 3.7 Albumin/Globulin Ratio 1.1 Lipase 85 Urine Color Urine Clarity Urine pH Ur Specific [place] Urine Protein Urine Glucose (UA) Urine Ketones Urine Occult Blood Urine Nitrite Urine Bilirubin Urine Urobilinogen Ur Leukocyte Esterase Urine RBC Urine WBC Ur Squamous Epith Cells Urine Bacteria Hyaline Casts Urine Mucus 02/01/20 08:58 WBC RBC Hgb Hct MCV MCH MCHC RDW Std Deviation RDW Coeff of [place] Plt Count MPV Immature Gran % (Auto) Neut % (Auto) Lymph % (Auto) [place] % (Auto) Eos % (Auto) Baso % (Auto) Absolute Neuts (auto) Absolute Lymphs (auto) Nucleated RBC % PT INR Sodium Potassium Chloride Carbon Dioxide Anion Gap BUN Creatinine Estim Creat Clear Calc Est GFR (MDRD) Af Amer Est GFR (MDRD) Non-Af BUN/Creatinine Ratio Glucose Calcium Total Bilirubin AST ALT Alkaline Phosphatase Troponin I Total Protein Albumin Globulin Albumin/Globulin Ratio Lipase Urine Color Yellow Urine Clarity Cloudy Urine pH 6.0 Ur Specific [place] 1.020 Urine Protein 30 H Urine Glucose (UA) Normal Urine Ketones 5 H Urine Occult Blood 50 H Urine Nitrite Negative Urine Bilirubin Negative Urine Urobilinogen 1 H Ur Leukocyte Esterase 500 H Urine RBC 0-5 SEEN Urine WBC 10-25 SEEN Ur Squamous Epith Cells 10-25 SEEN Urine Bacteria 1+ Hyaline Casts 0-5 SEEN Urine Mucus RARE - Rhythm Strip Rhythm Strip: Sinus Rhythm Rate: 66 Ectopy: None - EKG Initial EKG Interpretation: Sinus Rhythm, - - Normal sinus rhythm at a rate of [address] segments Normal intervals - Medical Decision Making Patient evaluated for esophageal impaction that occurred after eating a hamburger last night. She is now developed associated hemoptysis and right upper quadrant abdominal pain. Is not clear if it is actually hemoptysis versus hematochezia. I suspect it is more from her esophagus/stomach and not her lungs that she has no other respiratory symptoms is not coughing in the emergency room. Her abdominal exam is benign. Patient is not tolerate p.o. in the emergency room. Lab work-up is relatively unremarkable. I suspect patient has retained esophageal food impaction and does not respond to IV glucagon. Discussed with surgery on-call, Dr. Jon will come in to do a bedside EGD. This went well and patient had resolution of the impaction by pushing it through. There was a small area of early necrosis of the esophagus that GI would like to treat with Carafate and omeprazole. This is prescribed for the patient. Patient has resolution of her symptoms after endoscopy. She is instructed to follow-up with GI in 1 week and on a soft/liquid diet. Patient is counseled on signs and symptoms requiring return to the emergency room. Patient verbalizes agreement and understand this plan. Patient discharged home in stable and improved condition. Procedures Procedure(s): Procedural sedation. Patient monitored with continuous telemetry, pulse oximetry and end-tidal CO2. She is previously premedicated with Zofran. She is given a total of 70 mg of IV propofol in multiple aliquots. EGD performed by Dr. Jon. Patient had no immediate complications and tolerated procedure well. She had no episodes of apnea, bradycardia, or hypoxia. ED Disposition - Plan for ED Patient: Disposition: Home or Assisted Living Diagnosis: Esophageal obstruction due to food impaction Instructions: Eating a Soft Diet, ED Foreign Body Esophageal Rslv Prescriptions: Sucralfate [Carafate] 1 gm PO 4X/DAY #28 tab Prescription Printed Omeprazole 40 mg PO DAILY #14 capsule.dr Prescription Printed Referrals: Mendez Varma [Primary Care Provider] - Sg Jon MD [STAFF PHYSICIAN] - 1 Week Additional Instructions: Stick to liquids for the next 24 hours and then advance her diet to soft foods only. Please follow-up with Dr. Jon in 1 week. Return with any worsening symptoms and or call Dr. Jon's office.
[2020-02-01 09:06] LABS: Absolute Lymphocyte Count 0.96 X10^3/uL (0.83-4.51); Basophil# 0.04 X10^3/uL; Basophil% 0.5 % (0-1); Eosinophil# 0.52 X10^3/uL; Eosinophils% 6.5 % (0-5); Hematocrit 40.6 % (37-47); Hemoglobin 13.1 g/dL (12.0-15.0); Lymphocyte # 0.96 X10^3/ul (4.0); Lymphocyte % 11.9 % (19-41); Mean Corp Hgb Conc 32.3 g/dL (32-36); Mean Corpuscular Hgb 29.4 pg (27.0-32.0); Mean Platelet Vol. 9.6 fl (6.2-12.0); Monocyte# 0.56 X10^3/uL; NRBC Flagged by Analyzer 0 % (0-5); Neutrophil # 5.95 X10^3/uL (2.7-7.7); Platelet Count 251 K/mm3 (150-450); RBC Distribution Width CV 13.2 % (11.6-14.6); RBC Distribution Width SD 43.6 fl (35.1-43.9); Red Blood Count 4.46 M/mm3 (4.2-5.4)
[2020-02-01] MEDS: 0.9% Normal Saline 1,000 ML 1000 ML IV (09:06)
[2020-02-01] MEDS: Ondansetron 4 MG/2 ML Vial IV (09:06)
[2020-02-01] MEDS: Glucagon 1 MG/ML Syringe IV (09:06)
[2020-02-01 09:07] LABS: Color, Urine Yellow (Yellow); Glucose, Dipstick Normal (Normal); Ketone-Dipstick 5 mg/dl (Negative); Leukocyte Esterase-Dipstick 500 /ul (Negative); Nitrite-Dipstick Negative (Negative); Occult Blood-Urine 50 /ul (Negative); Protein-Dipstick 30 mg/dl (Negative); Urine Bilirubin Dipstick Negative (Negative); Urine Clarity Cloudy (Clear); Urine Urobilinogen 1 mg/dl (Normal)
[2020-02-01 09:14] LABS: Bacteria 1+ /hpf (None Seen); Hyaline Cast 0-5 SEEN /lpf (0-5); Mucous, Urine RARE /hpf (<or=2+); Prothrombin Time (Protime)PT. 12.6 SECONDS (11.7-14.9); Red Blood Cells-Urine 0-5 SEEN /hpf (0-5); Squamous Epithelial Cells - UA 10-25 SEEN /hpf (5-10); White Blood Cells 10-25 SEEN /hpf (0-5)
[2020-02-01 09:25] LABS: ALB/GLOB Ratio 1.1 RATIO (0.9-2.4); AST(SGOT) 17 U/L (15-37); Alanine Aminotransfer ALT/SGPT 27 U/L (13-56); Alkaline Phosphatase 133 U/L (45-117); Anion Gap 6 (5-15); BUN 8 mg/dL (7-18); BUN/Creat Ratio 11.1 RATIO (10-20); Calcium,Total 9.1 mg/dL (8.5-10.1); Chloride 109 mmol/L (98-107); Creatinine, Serum 0.72 mg/dL (0.55-1.02); EST Glomerular Filtration Rate 86 mL/min (>60); Est Glom Filt Rate - Afr Amer 104 mL/min (>60); Estimated Creatinine Clearance 51.11 ml/min; Globulin 3.7 g/dL (2.2-4.2); Glucose 122 mg/dL (74-106); Lipase 85 U/L (73-393); Potassium 3.9 mmol/L (3.5-5.1); Protein, Total 7.7 g/dL (6.4-8.2); Sodium Level 142 mmol/L (136-145)
[2020-02-01] MEDS: 0.9% Normal Saline 1,000 ML 999 ML IV (13:10)
[2020-02-01] MEDS: Propofol 200 MG/20 ML Vial IV BOLUS (13:33)
[2020-02-01] MEDS: Sucralfate 1 GM Tablet PO (13:51)
== END 2020-02-01 14:06 | disposition home or self-care (01) ==
PROVIDERS: Surgery; Emergency Provider Emergency Medicine; PCP Family Medicine
PROC: 0DJ08ZZ Inspection of Upper Intestinal Tract, Via Natural or Artificial Opening Endoscopic (ICD-10-PCS; CPT 43235; principal; 2020-02-01 12:45)
DX: K22.2 Esophageal obstruction (principal); T18.128A Food in esophagus causing other injury, initial encounter; I10 Essential (primary) hypertension; E78.5 Hyperlipidemia, unspecified; Z86.73 Personal history of transient ischemic attack (TIA), and cerebral infarction without residual deficits; Z79.82 Long term (current) use of aspirin; Z79.899 Other long term (current) drug therapy; Z87.891 Personal history of nicotine dependence
CPT/HCPCS: 43247; 71046; 80053; 81001; 83690; 84484; 85025; 85610; 87086; 87088; 93005; 96361; 96365; 96374; 96375; 99285; J7030; A4216; J1610; J2405

== ENCOUNTER → 2020-03-18 13:50 | Outpatient (CLI) | payer MEDICARE, SELFPAY ==
[2020-02-01 08:18] VITALS: BMI 27.4
--- NOTE | 2020-03-18 13:53 | CDU_ITS ---
Reason For Study: stenosis Rt. Velocities/BP Lt. Velocities/BP Prox CCA 93.0/18.6 cm/sec. Prox CCA 121.1/22.5 cm/sec. Mid CCA 87.8/17.3 cm/sec. Mid CCA 101.0/18.8 cm/sec. Dist CCA 77.3/16.0 cm/sec. Dist CCA 83.9/21.2 cm/sec. Prox ICA 86.0/22.3 cm/sec. Prox ICA 106.0/32.3 cm/sec. Mid ICA 117.0/26.2 cm/sec. Mid ICA 128.4/31.6. cm/sec. Dist ICA 82.6/27.4 cm/sec. Dist ICA 124.7/38.9 cm/sec. Rt. ICA/CCA = 1.3. Lt. ICA/CCA = 1.3. Prox ECA 163.1/20.6 cm/sec. Prox ECA 112.1/18.8 cm/sec. Rt. Vert. 30.5/8.8 cm/sec. Lt. Vert. 55.3/12.4 cm/sec. Right Extracranial There is intimal thickening but no significant atherosclerotic plaque noted in the right common carotid artery. There is heterogeneous, irregular atherosclerotic plaque noted in the right internal carotid artery. There is heterogeneous, irregular atherosclerotic plaque noted in the right external carotid artery. Antegrade flow is noted in the right vertebral artery. Left Extracranial There is intimal thickening but no significant atherosclerotic plaque noted in the left common carotid artery. There is heterogeneous, irregular atherosclerotic plaque noted in the left internal carotid artery. There is homogeneous, smooth atherosclerotic plaque noted in the left external carotid artery. Antegrade flow is noted in the left vertebral artery. Procedure Carotid Duplex [id number]. This is a Carotid Duplex examination using B-mode, color flow and specral Doppler. The exam was diagnostic. Exam performed in department. Interpretation Summary Mild (<50%) stenosis right extracranial internal carotid. Mild (<50%) stenosis left extracranial internal carotid. Flow within the vertebral arteries is antegrade bilaterally. Ordering Physician: Mendez Varma Performed By: Willi Flannery RVT
== END ==
PROVIDERS: PCP Family Medicine; Referring Provider Family Medicine; Visit Provider Family Medicine
DX: I65.23 Occlusion and stenosis of bilateral carotid arteries (principal); Z86.73 Personal history of transient ischemic attack (TIA), and cerebral infarction without residual deficits
CPT/HCPCS: 93880

== ENCOUNTER 2020-04-02 16:37 | Inpatient (IN) | payer MEDICARE, SELFPAY ==
[2020-02-01 08:18] VITALS: BMI 27.4
[2020-04-02] VITALS (9 sets, daily range): BP systolic 122–158; BP diastolic 72–98; PULSE 72–98; RESP 15–16; TEMP 35.7–36.9; O2SAT 99–100; BMI 27.7; BMI 27.8; BMI 28.5
--- NOTE | 2020-04-02 16:44 | EKG12_ITS ---
Test Reason : DISRHYTHMIA Blood Pressure : / mmHG Vent. Rate : 083 BPM Atrial Rate : 083 BPM P-R Int : 172 ms QRS Dur : 100 ms QT Int : 382 ms P-R-T Axes : 061 011 031 degrees QTc Int : 448 ms Normal sinus rhythm Incomplete right bundle branch block Borderline ECG Confirmed by ROSALINDA JACOBS, SHARON ([id number]), audio production instructor KATT NAVARRO ([id number]) on 04/16/2020 9:49:07 A M Referred By: GERONIMO Confirmed By:ANNETTE TELLEZ MD
--- NOTE | 2020-04-02 16:46 | ED.VIS.INJ ---
History of Present Illness Chief Complaint: Lower Extremity Injury Informant: Patient Onset: Hours Mechanism/Context: Blunt Injury, Fall Quality of Pain: Dull, Aching, Throbbing Location: Ankle left Current Severity: Mild Maximum Severity: Moderate Worsened by: Movement Relieved by: Remaining still Associated Symptoms: Loss of function, Inability to ambulate. Negative for: Parasthesias, Weakness, Loss of consciousness Narrative: Patient is a 65-year-old woman who had a glass of water 1/2-hour prior to presentation. She slipped injuring her left ankle. She denies prior injury. She denies allergy to soy products or egg products. She denies problems with prior anesthesia. Patient denies paresthesia, anesthesia motors. She states when she slid she landed on her buttocks. She not hit her head. She is not on anticoagulant. Denies neck pain. She denies numbness tingling upper extremities or right lower extremity. Tetanus Immunization: 5-10 years Prior similar symptoms: No Recent Illness/Hospitalization: No - Past Medical History (1) TIA (transient ischemic attack) Status: Acute (2) Alcohol use disorder, moderate, dependence Status: Chronic Past Medical History - Allergies and Home Meds Allergies/Adverse Reactions: Allergies No Known Allergies Allergy (Verified 04/02/20 18:01) Primary Care Physician: Mendez Varma [Primary Care Provider] - Prior records reviewed: Yes Surgical History: noncontributory, - - Tubal ligation Lives: Alone Smoking Status: Former smoker Alcohol: Occasional Drugs: None - Family History Maternal Family History: Reports: Heart Disease Paternal Family History: Reports: Heart Disease Review of Systems General: Denies: Chills, Fever, Malaise, Subjective Eyes: Denies: Visual changes - bilaterally, Blurred Vision - bilaterally ENT: Denies: Rhinorrhea, Sore throat Cardiovascular: Denies: Chest pain, Palpitations Respiratory: Denies: Dyspnea, Cough, Sputum Gastrointestinal: Reports: -. Denies: Abdominal pain, Nausea, Vomiting Musculoskeletal: Reports: Swelling, Extremity Pain. Denies: Myalgias, Arthralgias, Neck pain, Back pain Skin: Reports: Rash. Denies: Wounds Neurological: Denies: Headache, Weakness, Parasthesia Hematologic: Denies: Easy bruising, Easy bleeding Physical Exam Vital Signs/Narrative: Vital Signs Temp Pulse Resp BP Pulse Ox 04/02/20 16:38 96.3 F L 98 16 146/98 H 100 Inital Vital Signs reviewed: Yes General: Well nourished, Well developed, Obese Head: Normocephalic, Atraumatic Eyes: Perrl, EOMI. Negative for: Pale conjunctiva, Scleral icterus ENT: No hemotympanum or drainage, No trauma. Negative for: Hemotympanum, Otorrhea, Nasal trauma, Nasal septal hematoma Neck: Nontender, Full ROM. Negative for: Spinal Tenderness Cardiovascular: Regular rate, Regular rhythm, No murmurs, Normal S1, Normal S2 Respiratory: No distress, CTA bilaterally, Chest nontender Abdomen: Soft, Nontender, Nondistended, Normal bowel sounds Rectal: Deferred Back: Nontender. Negative for: CVA Tenderness - Right, CVA Tenderness - Left Extremeties: There is obvious deformity left ankle concerning for fracture dislocation. DP pulses palpable. Is able to wiggle her toes. There is no pain the patient over the proximal fibula or tibia. There is no evidence of trauma to the knee. Skin: Normal color, No rash Neurological: Alert, Oriented x3, Cranial nerves II-XII grossly intact, Normal Strength, Normal Sensation. Negative for: Normal Gait Psychological: Normal affect Diagnostic/Tx/Re-eval Chest X-Ray - ED: Read by ED Physician - X-ray of the left ankle reveals a bimalleolar fracture with posterior dislocation. As interpreted by fl at 1730. Patient was consented for deep sedation and closed reduction., - - Initial x-ray revealed a bimalleolar posterior fracture dislocation of the left ankle. She underwent deep sedation and reduction by me and Dr. Richmond. Post reduction film reveals near anatomical reduction. 3 views were obtained. 04/02/20 17:20 Ankle 2 Views [RAD] Stat Laboratory Results 04/02/20 04/02/20 16:48 16:48 WBC 7.9 RBC 4.28 Hgb 12.6 Hct 38.5 MCV 90.0 MCH 29.4 MCHC 32.7 RDW Std Deviation 43.1 RDW Coeff of [place] 13.2 Plt Count 282 MPV 10.0 Sodium 138 Potassium 3.7 Chloride 106 Carbon Dioxide 26.0 Anion Gap 6 BUN 17 Creatinine 0.74 Estim Creat Clear Calc 51.11 Est GFR (MDRD) Af Amer 101 Est GFR (MDRD) Non-Af 84 BUN/Creatinine Ratio 23.1 H Glucose 82 Calcium 9.2 - EKG Initial EKG Interpretation: Sinus Rhythm - Normal sinus rhythm with ventricular rate 83. NV interval 172 ms. QRS duration 100 ms. QT duration 382 ms. Patient has an RR prime in V1 and V2. - Medical Decision Making IV was established. She was treated with morphine and Zofran for pain. X-ray was obtained to determine extent of injury. Preop blood work was obtained. She was consented for deep sedation and closed reduction. Procedures - Lower Extremity Splints Lower Extremity Splint: Plaster, Stirrup, - - Posterior short leg splints were applied by Dr. Richmond Splint Fabrication: Fabricated Location: Left Procedure(s): 1. Patient was consented for deep procedural sedation by me and closed reduction and splinting by Dr. Richmond and me. Patient was given opportunity ask questions. None were asked. She had no contraindication using propofol. Patient received a total of 1 mg/kg of propofol. Her ankle was easily reduced and she was placed in a posterior short leg plaster splint as well as sugar tong/stirrup plaster splint. Post reduction films revealed near anatomical reduction of her bimalleolar posterior fracture dislocation left ankle ED Disposition - Plan for ED Patient: Diagnosis: Fracture dislocation of left ankle Referrals: Mendez Varma [Primary Care Provider] -
[2020-04-02] MEDS: 0.9% Normal Saline 1,000 ML 1000 ML IV (16:54)
[2020-04-02] MEDS: Ondansetron 4 MG/2 ML Vial IV (16:54)
[2020-04-02] MEDS: Morphine 4 MG/ML Syringe IV (16:55)
[2020-04-02 17:09] LABS: Hematocrit 38.5 % (37-47); Hemoglobin 12.6 g/dL (12.0-15.0); Mean Corp Hgb Conc 32.7 g/dL (32-36); Mean Corpuscular Hgb 29.4 pg (27.0-32.0); Platelet Count 282 K/mm3 (150-450); RBC Distribution Width CV 13.2 % (11.6-14.6); RBC Distribution Width SD 43.1 fl (35.1-43.9); Red Blood Count 4.28 M/mm3 (4.2-5.4); White Blood Count 7.9 K/mm3 (4.4-11.0)
--- NOTE | 2020-04-02 17:20 | RAD_ITS ---
STUDY: X-RAY - LEFT ANKLE REASON FOR EXAM: Female, 65 years old. FALL. POSITIVE DEFORMITY. TECHNIQUE: 2 view(s) of the ankle. COMPARISON: None. FINDINGS: There is acute fracture dislocation of the left ankle. Acute fractures noted in the distal tibia and fibula. The distal aspects of the tibia and fibula maintaining anatomic alignment with the talus The proximal tibial fracture does been displaced anteriorly by one half width of the tibia with varus angulation. The proximal fibular fracture is displaced medially by one half width of the fibula and also there is varus angulation. Extensive soft tissue swelling. Small calcaneal spurs, no demonstrated fracture within the visualized talus calcaneus or tarsal bones. RAD/Ankle 2 Views IMPRESSION: Acute fracture dislocation of the left ankle as described. There is extensive soft tissue swelling. Orthopedic surgical consultation recommended. The distal fragments of the tibia and fibula maintaining anatomic alignment with the talus. Electronically Signed: Carroll Dukes MD at 17:37 EDT , Service support ,
[2020-04-02 17:23] LABS: Anion Gap 6 (5-15); BUN 17 mg/dL (7-18); BUN/Creat Ratio 23.1 RATIO (10-20); Calcium,Total 9.2 mg/dL (8.5-10.1); Chloride 106 mmol/L (98-107); Creatinine, Serum 0.74 mg/dL (0.55-1.02); EST Glomerular Filtration Rate 84 mL/min (>60); Est Glom Filt Rate - Afr Amer 101 mL/min (>60); Estimated Creatinine Clearance 51.11 ml/min; Glucose 82 mg/dL (74-106); Potassium 3.7 mmol/L (3.5-5.1); Sodium Level 138 mmol/L (136-145)
--- NOTE | 2020-04-02 17:55 | RAD_ITS ---
STUDY: X-RAY - LEFT ANKLE REASON FOR EXAM: Female, 65 years old. post reduction left ankle TECHNIQUE: 3 view(s) of the ankle. COMPARISON: 5:17 PM FINDINGS: Interval reduction of the tibiotalar joint. Interval reduction of bimalleolar fractures. Splint is in place. Talar dome is normal in shape. RAD/Ankle min 3 Views IMPRESSION: Interval reduction of the tibiotalar joint. Interval reduction of bimalleolar fractures. Electronically Signed: Jaden Bentley MD at 18:10 EDT Tel , Service support ,
[2020-04-02] MEDS: 0.9% Normal Saline 1,000 ML 15 ML IV (17:56)
[2020-04-02] MEDS: Propofol 200 MG/20 ML Vial IV BOLUS (17:56)
--- NOTE | 2020-04-02 19:20 | CT_ITS ---
STUDY: CT ANKLE WITHOUT CONTRAST, LEFT REASON FOR EXAM: Female, 65 years old. LEFT ANKLE FX RADIATION DOSAGE (If Supplied By Facility): CTDIvol = ( 15.35 ) mGy, DLP = ( 411.33 ) mGycm. Individualized dose optimization techniques were used for this CT.? TECHNIQUE: Axial CT images were obtained without contrast, followed by sagittal and coronal reconstructions. 3-D reconstructions. COMPARISON: Radiographs same day FINDINGS: Trimalleolar fractures with mild residual displacement. Mild residual ankle mortise widening measuring 6 mm. Talar dome is normal in shape. Subtalar joints are intact. Calcaneus osteophytes. No well-defined hematomas are seen. Soft tissue swelling. No jazmine tendon disruptions are visible on this limited noncontrast study. CT/Extremity Lower without Contra IMPRESSION: Trimalleolar fractures with mild residual displacement. Mild residual ankle mortise widening measuring 6 mm. Electronically Signed: Jaden Bentley MD at 21:12 EDT Tel , Service support ,
--- NOTE | 2020-04-02 19:27 | PCM.HP.STD ---
History of Present Illness Date of Admission: 04/02/20 Chief Complaint: Left ankle fracture The patient is a 65 year old female with history of hypertension, high cholesterol, previous smoker presented to ER today due to left ankle fracture sustained today. She rolled ankle on a hill outside late this afternoon, felt immediate pain, and notice the ankle was deformed. Patient relates she crawled back inside and her daughter brought her to the ER. Left ankle xrays show displaced bimalleolus ankle fracture, it was closed reduced and splinted in the ER by Dr. Nova. Patient does not relate to any other injuries. Podiatry was consulted for further evaluation and management. I spoke with the Dr. Nova, ER physician and plan is to admit patient and proceed with ankle ORIF tomorrow morning. Patient relates pain is controlled right now. She denies any previous foot or ankle problems, she relates this is her first broken bone. Her daughter is with her today. Patient lives with her daughter and her grandson, relates she will be able to have plenty of help at home to recover. Past Medical History Past Medical History (Chronic Problems): Chronic Problems Alcohol use disorder, moderate, dependence (Chronic) Medical History: Medical History TIA (transient ischemic attack) (Acute) G45.9 Alcohol use disorder, moderate, dependence (Chronic) F10.20 Allergies No Known Allergies Allergy (Verified 04/02/20 18:01) Home Medications: Ambulatory Orders Medication Instructions Recorded Aspirin [Aspirin, Baby] 81 mg PO DAILY@0800 #30 tab.chew 01/12/18 Atorvastatin Calcium [Lipitor] 20 mg PO QHS #30 tab 01/12/18 Folic Acid 1 mg PO DAILY #30 tab 01/12/18 Lisinopril [Zestril] 10 mg PO DAILY #30 tab 01/12/18 Surgical History: noncontributory, - - Tubal ligation Psychiatric History: No pertinent psych hx [employer]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 Denies: Back Pain, Foot Pain Skin: Denies: Lesions, Wounds VTE Information - Inpt Only VTE Present on Admission: No VTE Mechan Device Prophylaxis: SCD's Patient Problems: Active and Suspected Problems Fracture dislocation of left ankle (Acute) TIA (transient ischemic attack) (Acute) - Physical Exam Vitals/I&O's: Vital Signs Temp Pulse Resp BP Pulse Ox 97.7 F L 85 16 158/77 H 100 04/02/20 18:44 04/02/20 18:44 04/02/20 19:04 04/02/20 18:44 04/02/20 18:44 Oxygen Flow Rate (L/min) [3] 2 Oxygen Flow Rate (L/min) [2] 2 Oxygen Flow Rate (L/min) [1 ( 2 Initial Baseline)] Oxygen Delivery Method [3] Nasal Cannula Oxygen Delivery Method [2] Nasal Cannula Oxygen Delivery Method [1 ( Nasal Cannula Initial Baseline)] Oxygen Delivery Method Room Air Weight: 78.018 kg Body Mass Index (BMI) 27.7 Finger Stick Blood Glucose 148 Intake and Output for Last 24 Hours 03/31/20 04/01/20 04/02/20 23:59 23:59 23:59 Intake Total 1000 / 1000 Balance 1000 / 1000 General: Alert, Oriented x3, Cooperative, No apparent distress Extremities: No cyanosis, Capillary Refill Less than 3 Seconds, No Calf Tenderness, Peripheral Pulses Normal - right foot, - - Left ankle xrays show displaced bimalleolus ankle fracture, had reduced in the ER. Left foot/ankle/leg splinted which is clean and dry, patient able to dorsiflex and plantarflex toes, sensation intact to the toes left foot, CFT < 2 seconds to all toes with normal temperature left foot. Musculoskeletal: Tenderness - to the left ankle c/w injury, otherwise no other pain to the foot bilateral or right ankle. Psych/Mental Status: Appropriate, Alert and oriented to time, place, person, mood and affect Laboratory Results 04/02/20 16:48: WBC 7.9, RBC 4.28, Hgb 12.6, Hct 38.5, MCV 90.0, MCH 29.4, MCHC 32.7, RDW Std Deviation 43.1, RDW Coeff of Toya 13.2, Plt Count 282, MPV 10.0 04/02/20 16:48: Sodium 138, Potassium 3.7, Chloride 106, Carbon Dioxide 26.0, Anion Gap 6, BUN 17, Creatinine 0.74, Estim Creat Clear Calc 51.11, Est GFR (MDRD) Af Amer 101, Est GFR (MDRD) Non-Af 84, BUN/Creatinine Ratio 23.1 H, Glucose 82, Calcium 9.2 Current Medications Acetaminophen (Acetaminophen 325 Mg Tablet) 650 mg PO Q4H PRN PRN PRN Reason: Pain Score 1-10 Docusate Sodium (Docusate Sodium 100 Mg Capsule) 100 mg PO BID PRN PRN PRN Reason: Constipation Hydromorphone HCl (Hydromorphone 1 Mg/Ml Syringe) 1 mg IV Q4H PRN PRN PRN Reason: Pain Score 6-10 Sodium Chloride () 1,000 mls @ 15 mls/hr IV .Q48H MORE Last Admin: 04/02/20 17:56 Dose: 15 mls/hr Documented by: Cefazolin Sodium 2 gm/ Sodium (Chloride) 110 mls @ 150 mls/hr IV X1 ONE Stop: 04/03/20 07:28 Ondansetron HCl (Ondansetron 4 Mg/2 Ml Vial) 4 mg IV Q8H PRN PRN PRN Reason: Nausea Oxycodone HCl (Oxycodone 5 Mg Tablet) 5 - 10 mg PO Q6H PRN PRN PRN Reason: Pain Score 4-10 Assessment/Plan All Active Problems Fracture dislocation of left ankle (Acute) TIA (transient ischemic attack) (Acute) Displaced bimalleolus left ankle fracture Pain left ankle HTN, HL, previous smoker Reviewed xrays, a CT scan was ordered for pre op evaluation. Currently the ankle has been closed reduced and splinted. Keep clean, dry and intact. Plan for ankle ORIF tomorrow morning at 730am, NPO after midnight. Discussed procedure with patient, discussed possible benefits vs risks, goals, expectations and estimated healing time. No weightbearing left foot. Keep foot elevated. Pain control: Oxyir, Dilaudid have been ordered. Vitamin D lab has been ordered. DVT Prophylaxis: SCD right. Will plan to proceed with Lovenox for post op DVT prophylaxis. HTN and other comorbidities: Medicine team consulted, appreciate assistance.
--- NOTE | 2020-04-02 19:57 | PCM.CONS.GEN ---
Problem List (1) Fracture dislocation of left ankle Status: Acute (2) TIA (transient ischemic attack) Status: Acute (3) Alcohol use disorder, moderate, dependence Status: Chronic Reason for Consult Date of Consultation: 04/02/20 Reason for Consultation: consult requested by Dr. Abernathy for medical mgmt. History of Present Illness: The patient is a 65 year old F who slid on hip, heard a snap and fell to the ground. She then crawled her way to help and was brought to the ED. In the ED, was found have an ankle fracture. Reduced in ED. [] Past Medical History Past Medical History (Chronic Problems): Chronic Problems Alcohol use disorder, moderate, dependence (Chronic) Medical History: Medical History (Last Updated 04/02/20 @ 20:[address] Silvio Hewitt DO) TIA (transient ischemic attack) (Acute) G45.9 Alcohol use disorder, moderate, dependence (Chronic) F10.20 HTN (hypertension) I10 Allergies No Known Allergies Allergy (Verified 04/02/20 18:01) Home Medications: Ambulatory Orders Medication Instructions Recorded Aspirin [Aspirin, Baby] 81 mg PO DAILY@0800 #30 tab.chew 01/12/18 Atorvastatin Calcium [Lipitor] 20 mg PO QHS #30 tab 01/12/18 Folic Acid 1 mg PO DAILY #30 tab 01/12/18 Lisinopril [Zestril] 10 mg PO DAILY #30 tab 01/12/18 Surgical History: noncontributory, - - Tubal ligation Psychiatric History: No pertinent psych hx [employer] History: No pertinent [employer] history Lives: Alone Smoking Status: Former smoker Alcohol: Occasional Drugs: None - *Family History Maternal History Items: Heart Disease Paternal History Items: Heart Disease Review of Systems Constitutional: Denies: Chills, Fever, Weight Change HEENT: Denies: Head Aches, Sinus Congestion, Sinus Drainage Cardiovascular: Denies: Chest Pain, Palpitations Respiratory: Denies: Cough, Shortness of breath at rest, Sputum production Gastrointestinal: Denies: Abdominal Pain, Nausea, Vomiting Genitourinary: Denies: Dysuria Musculoskeletal: Denies: Joint Pain, Joint Tenderness Skin: Denies: Rash, Wounds Neurological: Denies: Numbness, Tingling, Focal weakness Hematologic/ Lymphatic: Denies: Easy Bruising, Easy Bleeding, Hx of blood clot Comment: All review of systems were negative except as mentioned above in the history of present illness and the other review of systems. Patient Problems: Active and Suspected Problems Fracture dislocation of left ankle (Acute) TIA (transient ischemic attack) (Acute) - Physical Exam Vitals/I&O's: Vital Signs Temp Pulse Resp BP Pulse Ox 36.5 C L 85 16 158/77 H 100 04/02/20 18:44 04/02/20 18:44 04/02/20 19:04 04/02/20 18:44 04/02/20 18:44 Oxygen Flow Rate (L/min) [3] 2 Oxygen Flow Rate (L/min) [2] 2 Oxygen Flow Rate (L/min) [1 ( 2 Initial Baseline)] Oxygen Delivery Method [3] Nasal Cannula Oxygen Delivery Method [2] Nasal Cannula Oxygen Delivery Method [1 ( Nasal Cannula Initial Baseline)] Oxygen Delivery Method Room Air Weight: 78.018 kg Body Mass Index (BMI) 27.7 Finger Stick Blood Glucose 148 Intake and Output for Last 24 Hours 03/31/20 04/01/20 04/02/20 23:59 23:59 23:59 Intake Total 1000 / 1000 Balance 1000 / 1000 General: Alert, Cooperative, No apparent distress HEENT: Atraumatic, Normocephalic Oral: Moist Mucosa, No Gingival or Mucosal Lesions/ Ulcerations Neck: No Nodes, Thyroid Normal Size and Texture Lungs: Clear to auscultation, Normal air movement, No rhonchi, No wheeze, No rales Cardiovascular: Regular rate, Regular Rhythm, Normal S1, Normal S2, No murmurs Abdomen: Bowel Sounds Present, Soft, Non Tender, Non-Distended, No Hepato-splenomegaly Extremities: No edema, Capillary Refill Less than 3 Seconds, No Calf Tenderness Musculoskeletal: - - left foot and ankle casted. Psych/Mental Status: Normal Affect, Appropriate Laboratory Results 04/02/20 16:48: WBC 7.9, RBC 4.28, Hgb 12.6, Hct 38.5, MCV 90.0, MCH 29.4, MCHC 32.7, RDW Std Deviation 43.1, RDW Coeff of Toya 13.2, Plt Count 282, MPV 10.0 04/02/20 16:48: Sodium 138, Potassium 3.7, Chloride 106, Carbon Dioxide 26.0, Anion Gap 6, BUN 17, Creatinine 0.74, Estim Creat Clear Calc 51.11, Est GFR (MDRD) Af Amer 101, Est GFR (MDRD) Non-Af 84, BUN/Creatinine Ratio 23.1 H, Glucose 82, Calcium 9.2 Current Medications Acetaminophen (Acetaminophen 325 Mg Tablet) 650 mg PO Q4H PRN PRN PRN Reason: Pain Score 1-10 Docusate Sodium (Docusate Sodium 100 Mg Capsule) 100 mg PO BID PRN PRN PRN Reason: Constipation Hydromorphone HCl (Hydromorphone 1 Mg/Ml Syringe) 1 mg IV Q4H PRN PRN PRN Reason: Pain Score 6-10 Sodium Chloride () 1,000 mls @ 15 mls/hr IV .Q48H MORE Last Admin: 04/02/20 17:56 Dose: 15 mls/hr Documented by: Cefazolin Sodium 2 gm/ Sodium (Chloride) 110 mls @ 150 mls/hr IV X1 ONE Stop: 04/03/20 07:28 Ondansetron HCl (Ondansetron 4 Mg/2 Ml Vial) 4 mg IV Q8H PRN PRN PRN Reason: Nausea Oxycodone HCl (Oxycodone 5 Mg Tablet) 5 - 10 mg PO Q6H PRN PRN PRN Reason: Pain Score 4-10 Assessment/Plan All Active Problems Fracture dislocation of left ankle (Acute) TIA (transient ischemic attack) (Acute) 1. left ankle fracture medically cleared for surgery. No additional medical optimization needed. plan for surgery on 04/03 agree with checking a 25 OH-D level 2. HTN continue with lisinopril 3. HLP continue with statin 4. VTE prophylaxis: recommend NOAC post op DW Dr. Abernathy. Inpatient E&M: 40780 Init Hosp L2
[2020-04-02 21:23] LABS: Vitamin D,25 Hydroxy 21.3 ng/mL
[2020-04-02] MEDS: Atorvastatin Calcium 20 MG Tablet PO (22:08)
[2020-04-02] MEDS: oxyCODONE 5 MG Tablet PO (22:35)
[2020-04-02] MEDS: Acetaminophen 325 MG Tablet 650 MG PO (22:36)
[2020-04-03 03:34] VITALS: BP 132/78; PULSE 87; RESP 18; TEMP 36.4; O2SAT 100
[2020-04-03] MEDS: Acetaminophen 325 MG Tablet 650 MG PO (03:44)
--- NOTE | 2020-04-03 07:14 | RAD_ITS ---
STUDY: X-RAY - LEFT ANKLE REASON FOR EXAM: Female, 65 years old. ORIF TECHNIQUE: 5 view(s) of the ankle. COMPARISON: None. FINDINGS: Total fluoroscopic images demonstrate internal fixation of fractures of the tibia and fibula. Fracture fragments are in good alignment and close approximation. Tibiotalar joint is intact. Soft tissues are unremarkable. RAD/Ankle min 3 Views IMPRESSION: Successful internal fixation of tibia and fibula fractures. Electronically Signed: Allen Sood MD at 4:01 EDT , Service support ,
[2020-04-03] MEDS: Cefazolin 2 GM in 0.9% Normal Saline 100 ML IV (07:28)
--- NOTE | 2020-04-03 09:53 | OP.PCM_ITS ---
Report of Operation Date of Procedure: 04/03/20 Pre-Operative Diagnosis: Left ankle trimalleolar ankle fracture Post-Operative Diagnosis: Same Surgery/Procedure Performed:: Open reduction internal fixation of left ankle fracture alterations tailor: yes - Dr. Tawanda Mcmanus Type of Anesthesia:: General, Local Specimen's removed: None Estimated Blood Loss (mL): 10mL Description of Procedure: Indications: This is a 65 year old female who sustained a left trimalleolar ankle fracture. Xrays and CT scan obtained, there was trimalleolar ankle fracture with displacement present. Patient elected to proceed forward with open reduction internal fixation of the trimalleolar ankle fracture. The procedure was reviewed with her in detail. The rationale of the procedure was reviewed. The goals and the expectations were discussed and reviewed. The possible benefits vs risks and all potential complications were discussed and reviewed with the patient. Advised patient risks include but not limited to are pain, swelling, blood clot, need further surgery, complex regional pain syndrome, bleeding, loss of function, weakness, delayed healing, nonhealing, deformity, arthritis, scarring, loss of limb, loss of life. The patient expressed understanding and agreement, and elected to proceed forward with the procedure. All of patient's questions were answered. The consent forms were reviewed with patient and the patient freely signed them. No guarantees were given or implied. Operative Procedure: The patient was brought back to the operating room and was placed on the operating room table in the supine position. The patient was carefully secured to the operating room table with a safety belt around their waist. The patient received 2 grams of IV Cefazolin for antibiotic prophylaxis. The anesthesia team gave the patient general anesthesia, and also did a popliteal block. A well padded pneumatic tourniquet was applied around the left thigh. The left lower extremity was scrubbed, prepped, and draped in the usual aseptic fashion. The left foot/ankle was elevated for 3 minutes and the thigh pneumatic tourniquet was inflated to 300mmHg. The ankle was noted to be very unstable due to the trimalleolar fracture. There were no fracture blisters or evidence of ischemia. Using a 15 blade, a skin incision was made overlying the lateral malleolus. Careful dissection was completed down to the lateral malleolus fracture. The periosteum was left intact. There was an oblique lateral malleolus fracture. The fibula was brought out to length and was rotated back to normal position, it was stabilized with a bone clamp. The fracture was fixated using rigid open reduction internal fixation technique with 1 Arthrex a stainless steel distal fibular plate, which was applied across the fracture site using a combination of 2.7mm locking screws distally and 3.5mm locking and cortical screws proximally through the plate. The clamp was removed. There fracture was reduced, very stable, and in good position. This was confirmed visually as well as using intra operative fluoroscopy. Attention was directed to the medial malleolus. A skin incision was made overlying the medial malleolus using a 15 scalpel blade. Careful blunt dissection was completed down to the medial malleolus where the fracture was identified, it was displaced as well. There was soft tissue inter position between the fracture fragments. This was composed of periosteum. The periosteum was moved out from in between the fracture fragments and the medial malleolus was reduced back manually into normal position. The medial malleolus fracture site was fixated with two 4.0mm Arthrex cannulated screws. There fracture was reduced, stable, and in good position. This was confirmed visually as well as using intra operative fluoroscopy. There was good bone to bone contact. There was noted to be some mild instability of the distal syndesmosis, and the syndesmosis was reduced, and fixated using one Arthrex Tightrope and appropriately tensioned. At this time, the distal ankle syndesmosis was stressed and it was noted be be stable with no gapping present. The posterior fragment was small, reduced and did not need to be fixated. At this time there was noted to be excellent stability to the ankle joint, range of motion was smooth and gliding normally. There was no popping, clicking, or crepitus present. Intraoperative fluoroscopy was used to check the site and it was noted fibular length and tib fib overlap was normal, ankle mortise with medial and lateral gutters in normal position/alignment with good positioning of the plate, screws, and tight rope. There was good bone to bone alignment of the fracture sites. There was excellent stability to the ankle / fracture site. The ankle was stressed under fluoroscopy and negative anterior drawer, normal talar tilt, no medial gutter gapping with external stress test, and no gapping or instability with Cotton test as noted above at end of procedure. The surgical site was flushed out with copious amounts of normal saline solution. The subcutaneous tissue was reapproximated using 3-0 Vicryl, and the skin was 3-0 Monocryl. 10mL of 0.5% Marcaine plain was given as a saphenous nerve block to aid post operative pain control per ok by the anesthesia team. A dressing was applied which consisted of betadine soaked adaptic, 4x4 gauze, kerlix, webril, meme bandages, and well padded below knee posterior splint w/ heel offloaded. The pneumatic tourniquet was deflated and it was noted all hemostasis was achieved. There was immediate return of vascular flow to the foot/ankle, CFT < 2 seconds, and normal temperature present. Total tourniquet time was 115 minutes. Also of note, all vital structures, including all vital neurovascular and tendon structures were properly identified, protected and retracted as necessary. The patient tolerated the above procedure well and anesthesia well with no complications. The patient was transported to the recovery room in good condition and vital signs stable. Post op orders were placed, no weightbearing to the foot, and keep foot elevated. The patient will be followed as inpatient for post op pain control and observation. Grafts/Implants Used: 1 x Arthrex fibular plate and screws, 1 Arthrex Tightrope - Complications None
--- NOTE | 2020-04-03 10:20 | RAD_ITS ---
STUDY: X-RAY - LEFT ANKLE REASON FOR EXAM: Female, 65 years old. Postop TECHNIQUE: 3 view(s) of the ankle. COMPARISON: 04/02/20 FINDINGS: The patient is status post open reduction and internal fixation of the previously seen bimalleolar fractures. The hardware is intact and alignment is satisfactory. There is no new fracture. There are no radiodense foreign bodies. RAD/Ankle min 3 Views IMPRESSION: Status post ORIF with intact hardware and satisfactory alignment. Electronically Signed: Octavio Hoffman, at 11:22 EDT Tel , Service support ,
[2020-04-03 10:30] VITALS: BP 131/75; BP 132/78; PULSE 77; RESP 16; TEMP 36.6; O2SAT 97
[2020-04-03 10:52] VITALS: BP 131/73; PULSE 86; RESP 18; TEMP 36.4; O2SAT 96
--- NOTE | 2020-04-03 13:41 | PN_ITS ---
Patient Problems: Active and Suspected Problems (Last Updated 04/02/20 @ 20:[address] Silvio Hewitt, DO) Fracture dislocation of left ankle (Acute) TIA (transient ischemic attack) (Acute) Subjective: Feeling no pain now. Block has not worn off yet. Hungry. Lives with daughter. Vitals/I&O's: Vital Signs Temp Pulse Resp BP Pulse Ox 97.7 F L 79 16 133/69 H 99 04/03/20 12:52 04/03/20 12:52 04/03/20 12:52 04/03/20 12:52 04/03/20 12:52 Oxygen Flow Rate (L/min) [3] 2 Oxygen Flow Rate (L/min) [2] 2 Oxygen Flow Rate (L/min) [1 ( 2 Initial Baseline)] Oxygen Delivery Method [3] Nasal Cannula Oxygen Delivery Method [2] Nasal Cannula Oxygen Delivery Method [1 ( Nasal Cannula Initial Baseline)] Oxygen Delivery Method Room Air Weight: 80.2 kg Body Mass Index (BMI) 28.5 Finger Stick Blood Glucose 148 Intake and Output for Last 24 Hours 04/01/20 04/02/20 04/03/20 23:59 23:59 23:59 Intake Total 999 / 1954 1185 / 1185 Output Total 900 / 900 Balance 999 / 1954 285 / 285 General: Alert, Oriented x3, Cooperative, No apparent distress, Well developed, Well nourished HEENT: Atraumatic, Normocephalic Oral: Moist Mucosa Neck: Supple, Trachea Midline Lungs: Clear to auscultation, Normal air movement, No rhonchi, No wheeze, No rales Cardiovascular: Regular rate, Regular Rhythm, Normal S1, Normal S2, No murmurs, No Ectopic Activity, No rub noted, No Gallop Abdomen: Bowel Sounds Present, Soft, Non Tender, Non-Distended, No Hepato-spleno megaly Extremities: No clubbing, No cyanosis, No edema, Capillary Refill Less than 3 Seconds, Peripheral Pulses Normal, - - post cast on LLE Neurological: Cranial nerves II-XII grossly intact, Neuro grossly intact Psych/Mental Status: Normal Affect, Appropriate Laboratory Results 04/02/20 16:48: WBC 7.9, RBC 4.28, Hgb 12.6, Hct 38.5, MCV 90.0, MCH 29.4, MCHC 32.7, RDW Std Deviation 43.1, RDW Coeff of Toya 13.2, Plt Count 282, MPV 10.0 04/02/20 16:48: Sodium 138, Potassium 3.7, Chloride 106, Carbon Dioxide 26.0, Anion Gap 6, BUN 17, Creatinine 0.74, Estim Creat Clear Calc 51.11, Est GFR (MDRD) Af Amer 101, Est GFR (MDRD) Non-Af 84, BUN/Creatinine Ratio 23.1 H, Glucose 82, Calcium 9.2 04/02/20 20:06: Vitamin D 25-Hydroxy 21.3 Current Medications Acetaminophen (Acetaminophen 325 Mg Tablet) 650 mg PO Q4H PRN PRN PRN Reason: Pain Score 1-10 Last Admin: 04/03/20 03:44 Dose: 650 mg Documented by: Atorvastatin Calcium (Atorvastatin Calcium 20 Mg Tablet) 20 mg PO QHS [facility] Last Admin: 04/02/20 22:08 Dose: 20 mg Documented by: Docusate Sodium (Docusate Sodium 100 Mg Capsule) 100 mg PO BID PRN PRN PRN Reason: Constipation Hydromorphone HCl (Hydromorphone 1 Mg/Ml Syringe) 1 mg IV Q4H PRN PRN PRN Reason: Pain Score 6-10 Sodium Chloride () 1,000 mls @ 15 mls/hr IV .Q48H [facility] Last Admin: 04/02/20 17:56 Dose: 15 mls/hr Documented by: Sodium Chloride () 250 mls @ 15 mls/hr IV .[id number] PRN PRN Reason: Saline Flush Sodium Chloride () 250 mls @ 15 mls/hr IV .[id number] PRN PRN Reason: Additional IVPB Infusion Lisinopril (Lisinopril 10 Mg Tablet) 10 mg PO DAILY [facility] Ondansetron HCl (Ondansetron 4 Mg/2 Ml Vial) 4 mg IV Q8H PRN PRN PRN Reason: Nausea Oxycodone HCl (Oxycodone 5 Mg Tablet) 5 - 10 mg PO Q6H PRN PRN PRN Reason: Pain Score 4-10 Last Admin: 04/02/20 22:35 Dose: 5 mg Documented by: Sodium Chloride (0.9% Saline Lock 10 Ml Syringe) 10 - 40 ml IV UD PRN PRN Reason: SALINE FLUSH STROKE Vital Signs/Narrative: Vital Signs Temp Pulse Resp BP Pulse Ox 04/03/20 12:52 97.7 F L 79 16 133/69 H 99 04/03/20 10:52 97.6 F L 86 18 131/73 H 96 04/03/20 10:30 97.8 F 77 16 131/75 H 97 04/03/20 10:15 80 16 124/69 H 100 04/03/20 10:02 98.3 F 89 16 133/74 H 98 Medical Necessity - Tobacco Use Smoking Status: Former smoker Assessment/Plan All Active Problems (Last Updated 04/02/20 @ 20:[address] Silvio Hewitt, DO) Fracture dislocation of left ankle (Acute) TIA (transient ischemic attack) (Acute) Acute Trimalleolar Fracture of the L Ankle s/p ORIF 04/03 -had block with surgery so no current pain -has PRNs order -bowel regimen -NWB -PT to see -lives with daughter and will be able to get help Vitamin D Deficiency -will need to follow with fx clinic -DEXA -start supplementation 2000 u daily -level was 21--> repeat in 6 weeks HTN -continue lisinopril HPL -continue statin H/O TIA -on no ASA at baseline Overweight -recommend wgt loss EtOH Use -no s/o withdrawal H/O Tobacco Abuse -remote DVT Prophylaxis -start Lovenox while here Inpatient E&M: 61736 Subs Hosp L2
[2020-04-03 14:52] VITALS: BP 136/78; PULSE 96; RESP 18; TEMP 37.1; O2SAT 98; BMI 27.8
[2020-04-03] MEDS: Lisinopril 10 MG Tablet PO (15:31)
[2020-04-03] MEDS: oxyCODONE 5 MG Tablet PO (17:24)
[2020-04-03 18:48] VITALS: BMI 27.8
[2020-04-03 20:30] VITALS: BP 107/60; PULSE 90; RESP 16; TEMP 36.5; O2SAT 97
[2020-04-03] MEDS: Atorvastatin Calcium 20 MG Tablet PO (20:42)
[2020-04-04] MEDS: oxyCODONE 5 MG Tablet PO ×3 (00:21→14:58)
[2020-04-04 00:24] VITALS: BP 121/68; PULSE 84; RESP 16; TEMP 36.7; O2SAT 97
[2020-04-04 00:25] VITALS: BMI 27.8
[2020-04-04 04:30] VITALS: BP 119/64; PULSE 77; RESP 16; TEMP 36.7; O2SAT 99; BMI 27.8
[2020-04-04] MEDS: Enoxaparin 40 MG/0.4 ML Syringe SC (05:08)
[2020-04-04] MEDS: Lisinopril 10 MG Tablet PO (07:48)
--- NOTE | 2020-04-04 07:56 | PN_ITS ---
Patient Problems: Active and Suspected Problems (Last Updated 04/02/20 @ 20:[address] Silvio Hewitt, DO) Fracture dislocation of left ankle (Acute) TIA (transient ischemic attack) (Acute) Subjective: Patient was seen this morning for follow up left ankle ORIF. She relates the block has worn off and ankle is painful. Otherwise she is doing well, no fever, chills, nausea or vomiting. No calf pain, heel pain or any other complaints at this time. - Physical Exam Vitals/I&O's: Vital Signs Temp Pulse Resp BP Pulse Ox 98.0 F 77 16 119/64 99 04/04/20 04:30 04/04/20 04:30 04/04/20 04:30 04/04/20 04:30 04/04/20 04:30 Oxygen Flow Rate (L/min) [3] 2 Oxygen Flow Rate (L/min) [2] 2 Oxygen Flow Rate (L/min) [1 ( 2 Initial Baseline)] Oxygen Delivery Method [3] Nasal Cannula Oxygen Delivery Method [2] Nasal Cannula Oxygen Delivery Method [1 ( Nasal Cannula Initial Baseline)] Oxygen Delivery Method Room Air Weight: 80.2 kg Body Mass Index (BMI) 28.5 Finger Stick Blood Glucose 148 Intake and Output for Last 24 Hours 04/02/20 04/03/20 04/04/20 23:59 23:59 23:59 Intake Total 1000 / 1955 1185 / 1185 Output Total 2300 / 2300 1000 / 1000 Balance 1000 / 1955 -1115 / -1115 -1000 / -1000 General: Alert, Oriented x3, Cooperative, No apparent distress Extremities: Capillary Refill Less than 3 Seconds, No Calf Tenderness, - - Splint clean, dry and intact left foot/ankle/leg with heel offloaded, patient able to move toes and sensation is intact. Pain to the left ankle c/w injury and surgery to site, no other pain to the lower extremity. Psych/Mental Status: Appropriate, Alert and oriented to time, place, person, mood and affect Current Medications Acetaminophen (Acetaminophen 325 Mg Tablet) 650 mg PO Q4H PRN PRN PRN Reason: Pain Score 1-10 Last Admin: 04/03/20 03:44 Dose: 650 mg Documented by: Atorvastatin Calcium (Atorvastatin Calcium 20 Mg Tablet) 20 mg PO QHS [facility] Last Admin: 04/03/20 20:42 Dose: 20 mg Documented by: Cholecalciferol (Cholecalciferol (Vit D3) 1,000 Unit (25mcg)) 2,000 unit PO DAILY [facility] Last Admin: 04/04/20 07:48 Dose: 2,000 unit Documented by: Docusate Sodium (Docusate Sodium 100 Mg Capsule) 100 mg PO BID PRN PRN PRN Reason: Constipation Enoxaparin Sodium (Enoxaparin 40 Mg/0.4 Ml Syringe) 40 mg SC DAILY@0600 [facility] Last Admin: 04/04/20 05:08 Dose: 40 mg Documented by: Hydromorphone HCl (Hydromorphone 1 Mg/Ml Syringe) 1 mg IV Q4H PRN PRN PRN Reason: Pain Score 6-10 Sodium Chloride () 1,000 mls @ 15 mls/hr IV .Q48H [facility] Last Admin: 04/02/20 17:56 Dose: 15 mls/hr Documented by: Sodium Chloride () 250 mls @ 15 mls/hr IV .[id number] PRN PRN Reason: Saline Flush Sodium Chloride () 250 mls @ 15 mls/hr IV .[id number] PRN PRN Reason: Additional IVPB Infusion Lisinopril (Lisinopril 10 Mg Tablet) 10 mg PO DAILY [facility] Last Admin: 04/04/20 07:48 Dose: 10 mg Documented by: Ondansetron HCl (Ondansetron 4 Mg/2 Ml Vial) 4 mg IV Q8H PRN PRN PRN Reason: Nausea Oxycodone HCl (Oxycodone 5 Mg Tablet) 5 - 10 mg PO Q6H PRN PRN PRN Reason: Pain Score 4-10 Last Admin: 04/04/20 07:42 Dose: 10 mg Documented by: Sodium Chloride (0.9% Saline Lock 10 Ml Syringe) 10 - 40 ml IV UD PRN PRN Reason: SALINE FLUSH Medical Necessity - Tobacco Use Smoking Status: Former smoker Assessment/Plan All Active Problems (Last Updated 04/02/20 @ 20:[address] Silvio Hewitt, DO) Fracture dislocation of left ankle (Acute) TIA (transient ischemic attack) (Acute) Displaced trimalleolus left ankle fracture s/p ORIF 04/03/2020 Pain left ankle HTN, HL, previous smoker No suspicion for infection or DVT at this time. Pain c/w normal post op course. Once pain is controlled with oral pain medications ok for discharge. No weightbearing left foot. Keep foot elevated. Pain control: Oxyir, Dilaudid have been ordered. Hypovitaminosis D: Patient now on Vitamin supplementation 2000 units daily, will plan to prescribe 50,000 units once weekly for 8 weeks. DVT Prophylaxis: Lovenox while inpatient, plan for Xarelto 10mg PO once daily as outpatient. HTN and other comorbidities: Medicine team consulted, appreciate assistance. Will touch base with patient and nursing this afternoon for possible d/c today.
[2020-04-04 08:00] VITALS: BP 173/72; PULSE 75; RESP 16; TEMP 36.7; O2SAT 100
--- NOTE | 2020-04-04 12:14 | PCM.PN.HOSP ---
Patient Problems: Active and Suspected Problems (Last Updated 04/02/20 @ 20:[address] Silvio Hewitt, DO) Fracture dislocation of left ankle (Acute) TIA (transient ischemic attack) (Acute) Subjective: Pt states that she feels well and wants to go home. Got up with therapy and did well with the walker for ambulation. Vitals/I&O's: Vital Signs Temp Pulse Resp BP Pulse Ox 98.1 F 75 16 173/72 H 100 04/04/20 08:00 04/04/20 08:00 04/04/20 08:00 04/04/20 08:00 04/04/20 08:00 Oxygen Flow Rate (L/min) [3] 2 Oxygen Flow Rate (L/min) [2] 2 Oxygen Flow Rate (L/min) [1 ( 2 Initial Baseline)] Oxygen Delivery Method [3] Nasal Cannula Oxygen Delivery Method [2] Nasal Cannula Oxygen Delivery Method [1 ( Nasal Cannula Initial Baseline)] Oxygen Delivery Method Room Air Weight: 80.2 kg Body Mass Index (BMI) 28.5 Finger Stick Blood Glucose 148 Intake and Output for Last 24 Hours 04/02/20 04/03/20 04/04/20 23:59 23:59 23:59 Intake Total 999 1185 / 1185 Output Total 2300 / 2300 1000 / 1000 Balance 999 / 1954 -1115 / -1115 -1000 / -1000 General: Alert, Oriented x3, Cooperative, No apparent distress, Well developed, Well nourished, - - older WF sitting up in a chair, appears well HEENT: Atraumatic, Normocephalic Oral: Moist Mucosa Lungs: Clear to auscultation, Normal air movement, No rhonchi, No wheeze, No rales Cardiovascular: Regular rate, Regular Rhythm, Normal S1, Normal S2, No murmurs, No Ectopic Activity, No rub noted, No Gallop Abdomen: Bowel Sounds Present, Soft, Non Tender, Non-Distended Extremities: No clubbing, No cyanosis, No edema, Capillary Refill Less than 3 Seconds, Peripheral Pulses Normal Musculoskeletal: - - L LE in post splint with good cap refill at the toes Neurological: Cranial nerves II-XII grossly intact, Neuro grossly intact Psych/Mental Status: Normal Affect, Appropriate, Alert and oriented to time, place, person, mood and affect Current Medications Acetaminophen (Acetaminophen 325 Mg Tablet) 650 mg PO Q4H PRN PRN PRN Reason: Pain Score 1-10 Last Admin: 04/03/20 03:44 Dose: 650 mg Documented by: Atorvastatin Calcium (Atorvastatin Calcium 20 Mg Tablet) 20 mg PO QHS [facility] Last Admin: 04/03/20 20:42 Dose: 20 mg Documented by: Cholecalciferol (Cholecalciferol (Vit D3) 1,000 Unit (25mcg)) 2,000 unit PO DAILY [facility] Last Admin: 04/04/20 07:48 Dose: 2,000 unit Documented by: Docusate Sodium (Docusate Sodium 100 Mg Capsule) 100 mg PO BID PRN PRN PRN Reason: Constipation Enoxaparin Sodium (Enoxaparin 40 Mg/0.4 Ml Syringe) 40 mg SC DAILY@0600 [facility] Last Admin: 04/04/20 05:08 Dose: 40 mg Documented by: Hydromorphone HCl (Hydromorphone 1 Mg/Ml Syringe) 1 mg IV Q4H PRN PRN PRN Reason: Pain Score 6-10 Sodium Chloride () 1,000 mls @ 15 mls/hr IV .Q48H [facility] Last Admin: 04/02/20 17:56 Dose: 15 mls/hr Documented by: Sodium Chloride () 250 mls @ 15 mls/hr IV .[id number] PRN PRN Reason: Saline Flush Sodium Chloride () 250 mls @ 15 mls/hr IV .[id number] PRN PRN Reason: Additional IVPB Infusion Lisinopril (Lisinopril 10 Mg Tablet) 10 mg PO DAILY [facility] Last Admin: 04/04/20 07:48 Dose: 10 mg Documented by: Ondansetron HCl (Ondansetron 4 Mg/2 Ml Vial) 4 mg IV Q8H PRN PRN PRN Reason: Nausea Oxycodone HCl (Oxycodone 5 Mg Tablet) 5 - 10 mg PO Q6H PRN PRN PRN Reason: Pain Score 4-10 Last Admin: 04/04/20 07:42 Dose: 10 mg Documented by: Sodium Chloride (0.9% Saline Lock 10 Ml Syringe) 10 - 40 ml IV UD PRN PRN Reason: SALINE FLUSH Medical Necessity - Tobacco Use Smoking Status: Former smoker Assessment/Plan All Active Problems (Last Updated 04/02/20 @ 20:[address] Silvio Hewitt, DO) Fracture dislocation of left ankle (Acute) TIA (transient ischemic attack) (Acute) Acute Trimalleolar Fracture of the L Ankle s/p ORIF 04/03 -minimal pain -has PRNs order -bowel regimen -NWB -PT instructed and pt demonstrated walker ambulation -lives with daughter and will be able to get help Vitamin D Deficiency -will need to follow with fx clinic as out pt -DEXA -start supplementation 2000 u daily -level was 21--> repeat in 6 weeks HTN -continue lisinopril HPL -continue statin H/O TIA -on no ASA at baseline Overweight -recommend wgt loss EtOH Use -no s/o withdrawal H/O Tobacco Abuse -remote Dispo -ok to d/c from medical standpoint -would have pt f/u with [facility] (Dr. Apple) for fracture clinic Inpatient E&M: [id number] Subs Hosp L2
--- NOTE | 2020-04-04 13:56 | DCINST_ITS ---
Discharge Activity: May Not Drive, Use Walker - Use walker or knee walker Weight Bearing Status: No weight bearing - No weightbearing left foot Keep extremity elevated above heart level: Left Leg - Keep left foot elevated with pillows with heel offloaded for at least 50 minutes per hour Call your doctor if your incision/area has: Continuous Slow Oozing, Sudden Increased Bleeding, Foul Smelling Discharge Call your doctor if you observe: Fever of 101 or Higher, Shortness of breath, Chest pain, Increased palpitations (irregular heartbeat), Calf discomfort, Uncontrolled pain Cleanse incision/area with: Do not get Incision Wet, Keep Dressing Clean & Dry, - - Keep splint and dressing left foot/ankle/leg clean, dry and intact. Allergies/Adverse Reactions: Allergies No Known Allergies Allergy (Verified 04/02/20 18:01) Medications to take at Discharge Aspirin [Aspirin, Baby] 81 mg PO DAILY@0800 #30 tab.chew 01/12/18 Atorvastatin Calcium [Lipitor] 20 mg PO QHS #30 tab 01/12/18 Folic Acid 1 mg PO DAILY #30 tab 01/12/18 Lisinopril [Zestril] 10 mg PO DAILY #30 tab 01/12/18 Apixaban [Eliquis] 2.5 mg PO BID 14 Days #28 tab 04/04/20 Ergocalciferol (Vitamin D2) [Vitamin D2] 50,000 unit PO Q7D #8 cap 04/04/20 Oxycodone HCl/Acetaminophen [Percocet 5-325 mg Tablet] 1 - 2 ea PO Q6H PRN 4 Days #30 tab 04/04/20 The following prescriptions were given: Apixaban [Eliquis] 2.5 mg PO BID 14 Days #28 tab Transmission Status: Pending to [id number] Oxycodone HCl/Acetaminophen [Percocet 5-325 mg Tablet] 1 - 2 ea PO Q6H PRN 4 Days #30 tab PRN Reason: Pain Score 4-10 Transmission Status: Received by [id number] Ergocalciferol (Vitamin D2) [Vitamin D2] 50,000 unit PO Q7D #8 cap Transmission Status: Pending to [id number] Primary Care Physician: Mendez Varma [Primary Care Provider] - Test Results: Test results from this visit will be discussed in further detail at your follow- up appointment, if applicable. Please Follow Up With: Curtis Abernathy DPM - Office number: [phone] When: Sunday04/09/2020 at [facility] @ 8:30am; call sooner if needed
[2020-04-04 15:04] VITALS: BP 131/60; PULSE 88; RESP 18; TEMP 36.7; O2SAT 99
== END 2020-04-04 15:18 | disposition home or self-care (01) | DRG 494 ==
LOC: ED 17:05 → MS3 18:41
PROVIDERS: Admitting Provider Podiatrist; Emergency Provider Emergency Medicine; PCP Family Medicine; Visit Provider Internal Medicine
DX: S82.852A Displaced trimalleolar fracture of left lower leg, initial encounter for closed fracture (principal); F10.20 Alcohol dependence, uncomplicated; X50.1XXA Overexertion from prolonged static or awkward postures, initial encounter; Y93.9 Activity, unspecified; Y92.9 Unspecified place or not applicable; Z86.73 Personal history of transient ischemic attack (TIA), and cerebral infarction without residual deficits; E55.9 Vitamin D deficiency, unspecified; I10 Essential (primary) hypertension; E78.00 Pure hypercholesterolemia, unspecified; E78.5 Hyperlipidemia, unspecified; E66.3 Overweight; Z68.28 Body mass index [BMI] 28.0-28.9, adult; Z79.82 Long term (current) use of aspirin; Z79.899 Other long term (current) drug therapy; Z87.891 Personal history of nicotine dependence; Z78.0 Asymptomatic menopausal state
CPT/HCPCS: 73600; 73610; 73700; 76000; 80048; 82306; 85027; 93005; 97162; 97165; 99251; 99281; 99285; C1713; J7030; A4216; G0463; J2405

== ENCOUNTER → 2020-04-09 11:15 | Outpatient (CLI) | payer MEDICARE, SELFPAY ==
[2020-04-02 19:53] VITALS: BMI 28.5
--- NOTE | 2020-04-09 11:17 | VDLE_ITS ---
Reason For Study: Pain Procedure LEFT This is a venous duplex using B-mode, color GSV is normal. flow and spectral Doppler. CFV is compressible, spontaneous, phasic, Exam performed in department. competent, and demonstrates normal A preliminary report was called and/or faxed augmentation. to [facility]. FV is compressible, spontaneous, phasic, competent and demonstrates normal augmentation. POP V is compressible, spontaneous, phasic, competent and demonstrates normal augmentation. T/P Trunk is compressible. PTV is compressible. LT PerV is compressible. Interpretation Summary Deep veins of the left lower extremity are patent and compressible segmentally. There is no evidence of left lower extremity deep vein thrombosis. Valvular competence appears intact within the proximal deep venous system on the left . The left great saphenous vein appears patent and compressible segmentally. Ordering Physician: Curtis Abernathy Referring Physician: Mendez Varma Performed By: Muriel Young RVT
== END ==
PROVIDERS: PCP Family Medicine; Referring Provider Podiatrist; Visit Provider Podiatrist
DX: M79.662 Pain in left lower leg (principal); I82.402 Acute embolism and thrombosis of unspecified deep veins of left lower extremity
CPT/HCPCS: 93971

== ENCOUNTER 2020-07-13 10:30 | Outpatient (RCR) | payer MEDICARE, SELFPAY ==
[2020-04-02 19:53] VITALS: BMI 28.5
--- NOTE | 2020-06-09 16:47 | HP.PTEVAL_ITS ---
Patient's Visit Information HUNTER WALKER is a 65 year old F referred to Physical Therapy by Dr. Curtis Abernathy DPM with a diagnosis of L S/P ORIF Left Ankle. Date of Evaluation: 06/09/20 Physical Therapist: MARGO Lopez - Visit Plan Frequency: 2-3x /Week Duration: 4 Weeks Plan: 2-3 X/ week for 4 weeks for L ankle ROM, Stretching, strengthening, gait taining (transition out of the boot to brace and shoe), balance and proprioception with HEP - Subjective Pt broke her ankle in 3 places and she had new tired put on her car and she walked down a hill and the Right foot went one way and Left went the other way and she had to crawl across the backyard to home to get her daughter to take her to ER. She had surgery on 04-03-2020. She was NWB until the last couple of weeks. He looked at x-rays and wanted PT to start 06-14-2020. She has stairs down to basement and couple steps down to the ground. She also has a ramp now. She has an ankle brace that she will be transitioning too. She is in a walking boot. ABle to start transitioning to ankle brace and shoe on 06-14-2020. - Pain L ankle pain Pain Intensity (Out of 10): 0 - Objective Pt walks with a walking boot with FWB but with antalgic gait on the L LE without an AD. L Ankle AROM: DF -7 degrees from neutral, PF 42 degrees, INV 15 degrees, EV 6 degrees. R ankle AROM: DF 4 degrees, PF 50 degrees, INV 21 degrees, EV 9 degrees. L ankle MMT: 3+/5 L ankle DF, PF INV, EV. R ankle MMT: 4+/5 R ankle DF, PF, INV, EV. L ankle girth measurements med to lat mal: 26, Figure 8: 53.5 - Goals Goal 1:: I HEP Goal Time Frame: 4-6 Weeks Goal 2:: Increase L ankle AROM to 5 degrees DF (at the time of the eval L ankle DF -7 degrees from neutral) Goal Time Frame: 4-6 Weeks Goal 3:: Be able to walk with ankle brace and shoe with no antalgic gait and no pain Goal Time Frame: 4-6 Weeks Goal 4:: Pt to RTW with no pain during her work day Goal Time Frame: 4-6 Weeks - Rehabilitation Potential Rehabilitation Potential: Good - Anticipated Interventions Patient/Client Instruction: Educate patient on: Condition, Plan of Care For the Purpose of:: To decrease pain, To decrease swelling/inflammation, To increase ROM, To improve nutrient delivery to tissue, To improve muscle per formance and motor function, To improve ability to perform ADL's, To increase tolerance to activity/condition/position, To improve performance and independence with ADL's, To decrease level of supervision to perform tasks, To improve ability of physical actions for home/community/work/leisure, To improve gait and locomotor functions, To improve health of tissue, To decrease soft tissue restriction, To increase flexibility/ROM, To improve balance, To improve safety with gait Therapeutic Exercise to Include: Strength training, Balance training, Coordination, Postural training, Flexibilty training, Gait and locomotor training, Neuromotor development, Passive ROM, Active ROM For the Purpose of:: To decrease pain, To increase ROM, To improve nutrient delivery to tissue, To increase oxygenation perfusion, To improve muscle performance and motor function, To improve ability to perform ADL's, To increase tolerance to activity/condition/position, To improve performance and independence with ADL's, To decrease level of supervision to perform tasks, To improve ability of physical actions for home/community/work/leisure, To improve gait and locomotor functions, To improve health of tissue, To decrease soft tissue restriction, To increase flexibility/ROM, To improve safety with gait Functional Training to Include: Gait training For the Purpose of:: To improve gait and locomotor functions, To improve safety with gait Manual Therapy Techniques to Include: Passive ROM For the Purpose of:: To increase ROM Thank you for the opportunity to evaluate your patient. For Medicare and Medicare HMO plans, please review the plan of care and approve it. It will need to be FAXED BACK to us at [phone] for Medicare purposes. For Medicare only, by signing this I certify the plan of care. Please let me know if there are questions or concerns regarding this plan of care. Physician Signature: Date:
--- NOTE | 2020-07-13 11:03 | HP.PTREVAL_ITS ---
Dr. Curtis Abernathy, CARMEL, It has been my pleasure to treat HUNTER WALKER over the last 9 visits for L S/P ORIF Left Ankle. Please see the progress note below for an update on the physical therapy plan of care! Subjective: Pt has no pain. She sees Dr Michela mayen. Pt RTW on Sunday and she feels that she will do well. She is doing AROM and standing heel and tioe raises. SHe is not struggling with anything. She feels that she is ready to be done with PT. Objective/Function: Gait: walks with decreased stance time on the L LE and decreased heel to toe gait pattern. Stairs: decreased ability to DF the ankle descnding the stairs and therefore she hops down the step and did catch her toe at one point not holding onto the rail and grabbed it for sadety. AROM: L ankle... DF 4 degrees, PF 55 degrees, INV 17 degrees and EV 6 degrees. Tight into DF on the L side. Pt has 3-/5 DF stregth on the L Plan Plan: Pt to call in after Dr roma mayen to see if she will continue PT. If do not hear from the patient then patient can be discharged. Goals Goal 1:: I HEP Goal Time Frame: 4-6 Weeks Goal Progress: Goal Met Goal 2:: Increase L ankle AROM to 5 degrees DF (at the time of the eval L ankle DF -7 degrees from neutral) Goal Time Frame: 4-6 Weeks Goal 3:: Be able to walk with ankle brace and shoe with no antalgic gait and no pain Goal Time Frame: 4-6 Weeks Goal 4:: Pt to RTW with no pain during her work day Goal Time Frame: 4-6 Weeks Goal Progress: Progressing Anticipated Interventions Patient/Client Instruction: Educate patient on: Condition, Plan of Care For the Purpose of:: To decrease pain, To decrease swelling/inflammation, To increase ROM, To improve nutrient delivery to tissue, To improve muscle performance and motor function, To improve ability to perform ADL's, To increase tolerance to activity/condition/position, To improve performance and independence with ADL's, To decrease level of supervision to perform tasks, To improve ability of physical actions for home/community/work/leisure, To improve gait and locomotor functions, To improve health of tissue, To decrease soft tissue restriction, To increase flexibility/ROM, To improve balance, To improve safety with gait Therapeutic Exercise to Include: Strength training, Balance training, Coordination, Postural training, Flexibilty training, Gait and locomotor training, Neuromotor development, Passive ROM, Active ROM For the Purpose of:: To decrease pain, To increase ROM, To improve nutrient delivery to tissue, To increase oxygenation perfusion, To improve muscle performance and motor function, To improve ability to perform ADL's, To increase tolerance to activity/condition/position, To improve performance and indepe ndence with ADL's, To decrease level of supervision to perform tasks, To improve ability of physical actions for home/community/work/leisure, To improve gait and locomotor functions, To improve health of tissue, To decrease soft tissue restriction, To increase flexibility/ROM, To improve safety with gait Functional Training to Include: Gait training For the Purpose of:: To improve gait and locomotor functions, To improve safety with gait Manual Therapy Techniques to Include: Passive ROM For the Purpose of:: To increase ROM Please do not hesitate to contact me at [phone] by phone or if you have questions or concerns regarding this new plan of care! Sincerely, Thalia Lujan, MPT
--- NOTE | 2020-08-17 11:22 | HP.PT.NRP ---
HUNTER WALKER was seen in my office for initial evaluation on 06/09/20. The following Plan of Care was established for this patient: Initial Frequency: 2-3x /Week Initial Duration: 4 Weeks Patient/Client Instruction: Educate patient on: Condition, Plan of Care For the Purpose of:: To decrease pain, To decrease swelling/inflammation, To increase ROM, To improve nutrient delivery to tissue, To improve muscle performance and motor function, To improve ability to perform ADL's, To increase tolerance to activity/condition/position, To improve performance and independence with ADL's, To decrease level of supervision to perform tasks, To improve ability of physical actions for home/community/work/leisure, To improve gait and locomotor functions, To improve health of tissue, To decrease soft tissue restriction, To increase flexibility/ROM, To improve balance, To improve safety with gait Therapeutic Exercise to Include: Strength training, Balance training, Coordination, Postural training, Flexibilty training, Gait and locomotor training, Neuromotor development, Passive ROM, Active ROM For the Purpose of:: To decrease pain, To increase ROM, To improve nutrient delivery to tissue, To increase oxygenation perfusion, To improve muscle performance and motor function, To improve ability to perform ADL's, To increase tolerance to activity/condition/position, To improve performance and independence with ADL's, To decrease level of supervision to perform tasks, To improve ability of physical actions for home/community/work/leisure, To improve gait and locomotor functions, To improve health of tissue, To decrease soft tissue restriction, To increase flexibility/ROM, To improve safety with gait Functional Training to Include: Gait training For the Purpose of:: To improve gait and locomotor functions, To improve safety with gait Manual Therapy Techniques to Include: Passive ROM For the Purpose of:: To increase ROM This patient was last seen in our office 07/13/20. Pertinent comments regarding their Physical therapy will appear below: DC PT. we received a new PT order but pt did not reschedule. At this point I will be discontinuing this patient from physical therapy. I would be happy to see this patient again in the future if found appropriate by the physician. Thank you! Thalia Lujan, MPT
== END 2020-07-13 19:00 | disposition home or self-care (01) ==
LOC: PT 10:30
PROVIDERS: PCP Family Medicine; Referring Provider Podiatrist; Visit Provider Podiatrist
DX: Z98.890 Other specified postprocedural states (principal)
CPT/HCPCS: 97110; 97161; 97530

== ENCOUNTER → 2020-08-19 13:52 | Outpatient (CLI) | payer MEDICARE, SELFPAY ==
[2020-04-02 19:53] VITALS: BMI 28.5
--- NOTE | 2020-08-19 13:57 | BD_ITS ---
STUDY: DUAL ENERGY X-RAY ABSORPTIOMETRY / DXA REASON FOR EXAM: Female, 65 years old. 733.00OsteoporosisBONE DENSITY REASON FOR EXAM TECHNIQUE: Bone Mineral Density (BMD) measurements of lumbar spine and bilateral hips were obtained. COMPARISON: None. FINDINGS: Lumbar Spine (L1-L4): g/cm2 (1.214) / T-score (0.4) / Z-score (2.0) Findings are suggestive of normal bone density with a low fracture risk. Left Femur Total: g/cm2 (0.887) / T-score (-1.0) / Z-score (0.4) Left Femoral Neck: g/cm2 (0.893) / T-score (-1.0) / Z-score (0.5) Right Femur Total: g/cm2 (0.966) / T-score (-0.3) / Z-score (1.0) Right Femoral Neck: g/cm2 (0.945) / T-score (-0.7) / Z-score (0.9) BD/Dexa Bone Density Study IMPRESSION: The patient is considered normal as outlined below according to World Ankush Organization (WHO) criteria with a low fracture risk. Reference Information: The T-score is the number of standard deviations above or below the standard which is normal for young adults at their peak bone mineral density. The World Health Organization (WHO) interprets the T-scores as follows: Above -1 Normal bone density Between -1 and -2.5 Osteopenia Equal to / or below -2.5 Osteoporosis As a practical clinical guideline, osteopenia may be graded as follows: Mild -1 through -1.5 Moderate -1.6 through -2.0 Severe -2.1 through -2.4 The Z-score is the number of standard deviations above or below age-matched controls. A Z-score of less than -1.5 would be considered abnormal. References: 1. NIH Osteoporosis and Related Bone Diseases www osteo.org 2. International Society for Clinical Densitometry www iscd.org 3. National Osteoporosis Foundation www nof.org Electronically Signed: Ezekiel Jj MD at 15:14 EST , Service support ,
== END ==
PROVIDERS: PCP Family Medicine; Referring Provider Family Medicine; Visit Provider Family Medicine
DX: M81.0 Age-related osteoporosis without current pathological fracture (principal); S82.899A Other fracture of unspecified lower leg, initial encounter for closed fracture; Z13.820 Encounter for screening for osteoporosis; E55.9 Vitamin D deficiency, unspecified
CPT/HCPCS: 77080

== ENCOUNTER → 2022-01-27 | Outpatient (CLI) | payer MEDICARE, SELFPAY ==
[2022-01-27 15:15] LABS: Absolute Neutrophil Count 3.7 X10^3/uL (2.0-7.7); Basophil# 0.06 X10^3/uL; Eosinophil# 0.42 X10^3/uL; Eosinophils% 6.9 % (0-5); Hematocrit 36.3 % (37-47); Hemoglobin 12.1 g/dL (12.0-15.0); Lymphocyte % 23.1 % (19-41); Mean Corp Hgb Conc 33.3 g/dL (32-36); Mean Corpuscular Hgb 30.3 pg (27.0-32.0); Mean Platelet Vol. 10.2 fl (6.2-12.0); Monocyte% 8.2 % (0-10); NRBC Flagged by Analyzer 0 % (0-5); Neutrophil # 3.68 X10^3/uL (2.7-7.7); Neutrophil % 60.6 % (47-70); Platelet Count 259 K/mm3 (150-450); RBC Distribution Width CV 13.3 % (11.6-14.6); RBC Distribution Width SD 44.5 fl (35.1-43.9); Red Blood Count 3.99 M/mm3 (4.2-5.4); White Blood Count 6.1 K/mm3 (4.4-11.0)
[2022-01-27 15:30] LABS: AST(SGOT) 19 U/L (15-37); Alanine Aminotransfer ALT/SGPT 30 U/L (13-56); Albumin, Serum 3.7 g/dL (3.2-5.0); Alkaline Phosphatase 120 U/L (45-117); Anion Gap 3 (5-15); BUN 15 mg/dL (7-18); BUN/Creat Ratio 22.5 RATIO (10-20); Calcium,Total 8.9 mg/dL (8.5-10.1); Chloride 104 mmol/L (98-107); Cholesterol 136 mg/dL (200); Creatinine, Serum 0.67 mg/dL (0.55-1.02); EST Glomerular Filtration Rate 93 mL/min (>60); Est Glom Filt Rate - Afr Amer 113 mL/min (>60); Globulin 3.6 g/dL (2.2-4.2); Glucose 95 mg/dL (74-106); High Density Lipoprotein 69 mg/dL; Potassium 3.8 mmol/L (3.5-5.1); Protein, Total 7.3 g/dL (6.4-8.2); Sodium Level 136 mmol/L (136-145); Triglycerides 43 mg/dL; Very Low Density Lipoprotein 9 mg/dL (5-40)
== END | disposition home or self-care (01) ==
LOC: MTLAB 11:07
PROVIDERS: PCP Family Medicine; Referring Provider Family Medicine; Visit Provider Family Medicine
DX: I10 Essential (primary) hypertension (principal); I65.23 Occlusion and stenosis of bilateral carotid arteries; E78.5 Hyperlipidemia, unspecified
CPT/HCPCS: 36415; 80053; 80061; 85025

== ENCOUNTER → 2022-03-13 | Outpatient (CLI) | payer MEDICARE, SELFPAY ==
--- NOTE | 2022-03-13 09:49 | CDU_ITS ---
Reason For Study: TIA Rt. Velocities/BP Lt. Velocities/BP Prox CCA 76.8/13.5 cm/sec. Prox CCA 70.9/16 cm/sec. Mid CCA 71.1/18.2 cm/sec. Mid CCA 77/14.2 cm/sec. Dist CCA 57/20.1 cm/sec. Dist CCA 89.1/18..2 cm/sec. Prox ICA 90/26.1 cm/sec. Prox ICA 85/31.1 cm/sec. Mid ICA 84.6/22.5 cm/sec. Mid ICA 117/32.3 cm/sec. Dist ICA 108.3/26.1 cm/sec. Dist ICA 102.3/29.8 cm/sec. Rt. ICA/CCA = 1.52. Lt. ICA/CCA = 1.52. Prox ECA 99.8/18.8 cm/sec. Prox ECA 99.5/15.4 cm/sec. Rt. Vert. 29.1/8.1 cm/sec. Lt. Vert. 45.4/11.3 cm/sec. Right Extracranial There is intimal thickening but no significant atherosclerotic plaque noted in the right common carotid artery. There is heterogeneous, irregular atherosclerotic plaque noted in the right internal carotid artery. There is heterogeneous, irregular atherosclerotic plaque noted in the right external carotid artery. Antegrade flow is noted in the right vertebral artery. Left Extracranial There is intimal thickening but no significant atherosclerotic plaque noted in the left common carotid artery. There is heterogeneous, irregular atherosclerotic plaque noted in the left internal carotid artery. There is homogeneous, smooth atherosclerotic plaque noted in the left external carotid artery. Antegrade flow is noted in the left vertebral artery. Procedure Carotid Duplex 92586. This is a Carotid Duplex examination using B-mode, color flow and specral Doppler. Exam performed in department. VL/Carotid Duplex Ultrasound Interpretation Summary Mild (<50%) stenosis right extracranial internal carotid. Mild (<50%) stenosis left extracranial internal carotid. Flow within the vertebral arteries is antegrade bilaterally. Ordering Physician: Hailey Issa Referring Physician: Mendez Varma Performed By: Muriel Young RVT
== END | disposition home or self-care (01) ==
LOC: CVS 09:48
PROVIDERS: PCP Family Medicine; Referring Provider Family Medicine; Visit Provider Family Medicine
DX: I65.23 Occlusion and stenosis of bilateral carotid arteries (principal)
CPT/HCPCS: 93880

== ENCOUNTER 2022-06-11 19:06 | Emergency (ER) | payer MEDICARE, SELFPAY ==
[2022-06-11 19:07] VITALS: BP 177/133; PULSE 92; RESP 15; TEMP 36.2; O2SAT 99; BMI 27.7
--- NOTE | 2022-06-11 19:19 | ED.VIS.GI ---
HPI HPI - GI History of Present Illness Chief Complaint: Foreign Body Informant: patient and family Narrative Narrative: Presents for concerns for esophageal food impaction. Was eating ham at 2 PM when she took a chunk of the bone swallowing felt stuck on her lower abdomen. Tried water since then however is not going down states she is vomiting it up. Feels discomfort more lower chest upper abdomen.Reports It wraps around her back. This happened similar 4 years ago with a hamburger she was here in the ED with a scope. There is no structural abnormalities. Intermittent swallowing dysphagia issues however did not have any troubles until again today. History of hypertension hyperlipidemia and on a baby aspirin. Prior similar symptoms: Yes PFSH PFSH Medical History Alcohol use disorder, moderate, dependence HTN (hypertension) TIA (transient ischemic attack) Home Medications aspirin 81 mg chewable tablet 81 mg PO DAILY@0800 ##30 01/12/18 [Rx Last Taken Unknown] atorvastatin 20 mg tablet 20 mg PO QHS #30 tabs 01/12/18 [Rx Last Taken Unknown] folic acid 1 mg tablet 1 mg PO DAILY #30 tabs 01/12/18 [Rx Last Taken Unknown] lisinopril 10 mg tablet 10 mg PO DAILY #30 tabs 01/12/18 [Rx Last Taken Unknown] ergocalciferol (vitamin D2) 1,250 mcg (50,000 unit) capsule 50,000 unit PO Q7D #8 caps 04/04/20 [Rx Last Taken Unknown] omeprazole 40 mg capsule,delayed release 40 mg PO DAILY #30 caps 06/11/22 [Rx Last Taken Unknown] sucralfate 1 gram tablet (Carafate) 1 g PO 4X/DAY #60 tabs 06/11/22 [Rx Last Taken Unknown] Allergy/AdvReac Type Severity Reaction Status Date / Time No Known Allergies Allergy Verified 06/11/22 19:07 Social History Smoking Status: Former smoker ROS ROS ED Constitutional Constitutional ED: Denies chills, fever(s) or sweats Eyes Eyes: Denies change in vision ENT ENT ED: Reports dysphagia; Denies sore throat Cardiovascular Cardiovascular: Denies chest pain, leg edema, palpitations or racing heartbeat Respiratory/Chest Respiratory/Chest: Denies cough, dyspnea or dyspnea on exertion Gastrointestinal Gastrointestinal: Denies abdominal pain, diarrhea, nausea or vomiting Genitourinary Genitourinary ED: Denies dysuria, hematuria or urinary frequency Musculoskeletal Musculoskeletal: Denies back pain, extremity pain or neck pain Integumentary Denies rash or wounds Neurologic Neurologic: Denies headache(s), paresthesias or weakness EXAM Physical Exam Const Vital Signs: 06/11/22 19:07 06/11/22 21:51 Temperature 97.2 F L Temperature Source Temporal Pulse Rate 92 77 Respiratory Rate 15 16 Blood Pressure 177/133 H 175/79 H Blood Pressure Mean 147 111 Pulse Ox 99 98 Oxygen Delivery Method Room Air Room Air Positive well nourished and well developed General Appearance ED: well developed and NAD HEENT Reports moist mucous membranes HEENT Narrative: Airway patent. No stridor. normocephalic and atraumatic Eyes PERRL, EOMs intact bilaterally and conjunctivae normal General Eye ED: Yes normal appearance of both eyes Neck no lymphadenopathy and supple General: Negative for tenderness Chest Wall Chest: Negative for tenderness Resp normal respiratory effort and normal air movement Effort and Inspection: symmetric chest movement; Negative for respiratory distress Cardio regular rate, regular rhythm and no murmurs Peripheral Pulses: pulses 2+ throughout GI normal to inspection, nondistended, normoactive bowel sounds and non-tender Palpation: Negative for guarding or rebound tenderness present Back/Spine no CVA tenderness and no thoracic nor lumbar tenderness Extremity normal to inspection General Extremety ED: Negative for edema or tenderness General Extremity: Negative for edema Neuro oriented x3 and no sensory deficits noted Sensorium / Orientation: awake and alert Skin no rashes or lesions noted and no wounds MDM MDM MDM Narrative Medical decision making narrative: Patient nontoxic soft abdomen. With her history concerns for food impaction. We will try carbonated drinks. After carbonated drinks, she states pain immediately increased however she did not throw it up. She fell to go down. She is more uncomfortable reevaluation. With immediate irritation and no vomiting lower suspicion for clinical Esophageal obstruction. She reported pain upper quadrant wraps around to her right side of her back. Ordered for GI cocktail. 1950: GI cocktail noted have some improvement however still uncomfortable. White count returned at 15.7. Will order right upper quadrant ultrasound for further evaluation. 2100: Symptoms subsiding very minimal pain right upper quadrant. Liver enzymes lipase are normal. Creatinine 0.82. Awaiting ultrasound at this time. 2149: Ultrasound results contracted gallbladder otherwise normal. Clinically meeting stable soft abdomen. Prescription for PPI, Carafate, she will monitor for any bloody stools. GI follow-up. Return precautions. All questions were answered. Lab Data Attestation: I reviewed the patient's lab results. Labs: Laboratory Results - last 24 hr 06/11/22 06/11/22 19:40 19:40 WBC 15.7 H RBC 4.31 Hgb 12.9 Hct 38.4 MCV 89.1 MCH 29.9 MCHC 33.6 RDW Std Deviation 43.7 RDW Coeff of Toya 13.2 Plt Count 264 MPV 9.5 Immature Gran % (Auto) 0.400 Neut % (Auto) 88.8 H Lymph % (Auto) 5.3 L Craven % (Auto) 3.9 Eos % (Auto) 1.2 Baso % (Auto) 0.4 Absolute Neuts (auto) 13.9 H Absolute Lymphs (auto) 0.83 Nucleated RBC % 0 Sodium 141 Potassium 3.7 Chloride 109 H Carbon Dioxide 28.0 Anion Gap 4 L BUN 19 H Creatinine 0.82 Estim Creat Clear Calc 62.97 Est GFR (MDRD) Af Amer 88 Est GFR (MDRD) Non-Af 73 BUN/Creatinine Ratio 23.1 H Glucose 136 H Calcium 9.0 Total Bilirubin 0.80 Direct Bilirubin 0.20 AST 17 ALT 29 Alkaline Phosphatase 133 H Total Protein 7.4 Albumin 3.8 Globulin 3.6 Lipase 150 Radiography Diagnostic Testing: Clinical Impression(s) from Imaging Studies Gallbladder Ultrasound 06/11/22 19:51 IMPRESSION: Contracted gallbladder. Otherwise unremarkable exam. Electronically Signed: Branden Miramontes MD at 21:45 EST , Discharge Plan Triage Chief Complaint: Foreign Body ED Provider: Jorge Luis Banda Dx/Rx/DC Orders Clinical Impression: Abdominal pain, Gastritis Instructions: Abdominal Pain, ED Gastritis (Adult) Prescriptions: New omeprazole 40 mg capsule,delayed release(DR/EC) 40 mg PO DAILY Qty: 30 0RF sucralfate [Carafate] 1 gram tablet 1 g PO 4X/DAY Qty: 60 0RF No Action atorvastatin 20 MG tablet 20 mg PO QHS Qty: 30 0RF lisinopril 10 MG tablet 10 mg PO DAILY Qty: 30 0RF aspirin 81 MG tablet,chewable 81 mg PO DAILY@0800 Qty: 30 0RF folic acid 1 MG tablet 1 mg PO DAILY Qty: 30 0RF ergocalciferol (vitamin D2) 50,000 UNIT capsule 50,000 unit PO Q7D Qty: 8 0RF Primary Care Provider: Mendez Varma Referrals: Leo Padilla DO [Med Staff - Active Staff] - 1-2 Weeks Mendez Varma [Primary Care Provider] - 3-5 Days if not improving Activity Restrictions/Additional Instructions: Gallbladder ultrasound normal. Labs are all normal. Take medications as prescribed. Monitor for blood in the stools. Follow-up with GI. Return if any worsening symptoms.
[2022-06-11] MEDS: Mag Hydrox/Al Hydrox/Simeth 30 ML UDC PO (19:38)
[2022-06-11 19:45] LABS: Absolute Lymphocyte Count 0.83 X10^3/uL (0.83-4.51); Absolute Neutrophil Count 13.9 X10^3/uL (2.0-7.7); Basophil# 0.06 X10^3/uL; Basophil% 0.4 % (0-1); Eosinophil# 0.18 X10^3/uL; Eosinophils% 1.2 % (0-5); Hematocrit 38.4 % (37-47); Hemoglobin 12.9 g/dL (12.0-15.0); Lymphocyte # 0.83 X10^3/ul (0.83-4.51); Lymphocyte % 5.3 % (19-41); Mean Corp Hgb Conc 33.6 g/dL (32-36); Mean Corpuscular Hgb 29.9 pg (27.0-32.0); Mean Corpuscular Volume 89.1 fL (81-99); Mean Platelet Vol. 9.5 fl (6.2-12.0); Monocyte# 0.61 X10^3/uL; Monocyte% 3.9 % (0-10); NRBC Flagged by Analyzer 0 % (0-5); Neutrophil # 13.91 X10^3/uL (2.7-7.7); Neutrophil % 88.8 % (47-70); Platelet Count 264 K/mm3 (150-450); RBC Distribution Width CV 13.2 % (11.6-14.6); RBC Distribution Width SD 43.7 fl (35.1-43.9); Red Blood Count 4.31 M/mm3 (4.2-5.4); White Blood Count 15.7 K/mm3 (4.4-11.0)
--- NOTE | 2022-06-11 19:51 | US_ITS ---
EXAM: US ABDOMEN LIMITED, RIGHT UPPER QUADRANT CLINICAL INDICATION: RUQ pain TECHNIQUE: Real-time ultrasound of the right upper quadrant with image documentation. This report was created using [employer] report generation technology. COMPARISON: None. FINDINGS: LIVER: Liver measures 16.4 cm in length. Liver is echogenic/fatty. No focal hepatic lesions. No intrahepatic biliary ductal dilatation. GALLBLADDER: Sonographic Armenta''s sign is absent. Gallbladder is contracted with prominent wall measuring 3 mm. No pericholecystic fluid. COMMON BILE DUCT: Common bile duct measures 4.6 mm. PANCREAS: Pancreas is normal. No pancreatic ductal dilatation. RIGHT KIDNEY: Right kidney is normal. No stones, masses or hydronephrosis. OTHER VASCULATURE: Portal vein shows normal direction of blood flow and is patent. FREE FLUID: No ascites. US/Gallbladder IMPRESSION: Contracted gallbladder. Otherwise unremarkable exam. Electronically Signed: Branden Miramontes MD at 21:45 EST ,
[2022-06-11 20:03] LABS: AST(SGOT) 17 U/L (15-37); Alanine Aminotransfer ALT/SGPT 29 U/L (13-56); Albumin, Serum 3.8 g/dL (3.2-5.0); Alkaline Phosphatase 133 U/L (45-117); Anion Gap 4 (5-15); BUN 19 mg/dL (7-18); BUN/Creat Ratio 23.1 RATIO (10-20); Chloride 109 mmol/L (98-107); Creatinine, Serum 0.82 mg/dL (0.55-1.02); EST Glomerular Filtration Rate 73 mL/min (>60); Est Glom Filt Rate - Afr Amer 88 mL/min (>60); Estimated Creatinine Clearance 62.97 ml/min; Globulin 3.6 g/dL (2.2-4.2); Glucose 136 mg/dL (74-106); Lipase 150 U/L (73-393); Potassium 3.7 mmol/L (3.5-5.1); Protein, Total 7.4 g/dL (6.4-8.2); Sodium Level 141 mmol/L (136-145)
[2022-06-11] MEDS: Famotidine 200 MG/20 ML MDV 20 MG in 0.9% Normal Saline (Pres. free 8 ML 300 MG IV (20:10)
[2022-06-11 21:51] VITALS: BP 175/79; PULSE 77; RESP 16; O2SAT 98
== END 2022-06-11 22:20 | disposition home or self-care (01) ==
PROVIDERS: Emergency Provider Emergency Medicine; PCP Family Medicine; Visit Provider Emergency Medicine
DX: R10.10 Upper abdominal pain, unspecified (principal); K29.70 Gastritis, unspecified, without bleeding; I10 Essential (primary) hypertension; Z79.82 Long term (current) use of aspirin; Z79.899 Other long term (current) drug therapy; Z87.891 Personal history of nicotine dependence; Z86.73 Personal history of transient ischemic attack (TIA), and cerebral infarction without residual deficits
CPT/HCPCS: 76705; 80048; 80076; 83690; 85025; 99283; A4216; J3490

== ENCOUNTER 2022-06-12 08:12 | Day surgery (SDC) | payer MEDICARE, SELFPAY ==
[2022-06-12] VITALS (10 sets, daily range): BP systolic 110–167; BP diastolic 73–81; PULSE 64–104; RESP 14–18; TEMP 36.2–36.6; O2SAT 95–100; BMI 27.3
--- NOTE | 2022-06-12 | IMM_PTH ---
PATIENT: HUNTER WALKER LOC: EN U#:[id number] AGE/SX: 67/F ROOM: RE06/12/[address]: Dr. Leo Padilla DO : 1955 BED: DIS: 06/12/2022 SPEC #: [id number] RECD: 06/14/22 13:07 STATUS: FRANKY REMaureen #: [id number] JORGE ALBERTO: 06/12/22 00:[address]: Leo Padilla DEPT: IMMUNOHISTOCHEMISTRY RECD BY: Sandra De Luna ENTERED: 06/14/22 13:08 SP TYPE: IMMUNO OTHR DR: Mendez Varma Tissues: Esophagus, NOS Procedures: P53 (initial) KI-67 (add) PHYSICIAN & INSTITUTION [place] [id number] SPECIMEN INFORMATION: Tissue Source: Distal esophagus biopsy Clinical Info: Food impaction Specimen Number: [id number] CPT code: 78036, 40425 METHODOLOGY: Deparaffinized sections of prefer/formalin-fixed tissue or PAP/DQ stained slides are incubated with monoclonal/polyclonal antibodies/oligonucleotide probes. Localization is made via biotin free immunoperoxidase method. Appropriate controls are performed and reacted as expected. Results on target cell population are indicated in the following table: RESULTS: ANTIBODY / CLONE RESULT P53 (DO-7) negative Ki-67 (30-9) positive, low These tests were developed and their performance characteristics determined by [facility]. They may not have been cleared or approved by the U.S. Food and Drug Administration. The FDA has determined that such clearance or approval is not necessary. The above immunohistochemical/dualISH markers are ordered and reviewed by the Pathologist. INTERPRETATION: Distal esophagus, biopsy: No evidence of dysplasia. AM:arjun 06/15/2022
--- NOTE | 2022-06-12 08:33 | EDS_ITS ---
HPI HPI - GI History of Present Illness Chief Complaint: Abd Pain Detail of Chief Complaint: food stuck suhaoph Informant: patient Abdominal Pain/Flank Pain Onset: Yesterday Context: Sudden Onset Location: - (lower chest) Current Severity: Moderate Maximum Severity: Moderate Worsened by: - (drinking) Relieved by: Nothing Nausea/Vomiting/Emesis GI Symptom: Positive for Vomiting Onset: Yesterday Diarrhea/Melena/Hematochezia GI Symptom: Negative for Diarrhea, Melena or Hematochezia Narrative Narrative: Patient is seen here yesterday for similar issues that are not getting better. She was eating ham and it got stuck in her esophagus, she has had that happen before and needed EGD and dilation, but that has been several years. Yesterday she was able to pass cola, she states she is able to pass very little water right now but for the most part when she tries to drink a gulp of water it comes back up. She is concerned that she is not going to be able to keep enough fluid down in order to follow-up as an outpatient. She denies any new symptoms. In fact, she states she has been having right upper quadrant pain since this happened yesterday, but that is not bothering her as much today as it was before. She had a ultrasound and labs yesterday. [facility] Medical History Alcohol use disorder, moderate, dependence HTN (hypertension) TIA (transient ischemic attack) Home Medications aspirin 81 mg chewable tablet 81 mg PO DAILY@0800 ##30 01/12/18 [Rx Last Taken Unknown] atorvastatin 20 mg tablet 20 mg PO QHS #30 tabs 01/12/18 [Rx Last Taken Unknown] folic acid 1 mg tablet 1 mg PO DAILY #30 tabs 01/12/18 [Rx Last Taken Unknown] lisinopril 10 mg tablet 10 mg PO DAILY #30 tabs 01/12/18 [Rx Last Taken Unknown] ergocalciferol (vitamin D2) 1,250 mcg (50,000 unit) capsule 50,000 unit PO Q7D #8 caps 04/04/20 [Rx Last Taken Unknown] omeprazole 40 mg capsule,delayed release 40 mg PO DAILY #30 caps 06/11/22 [Rx Last Taken Unknown] sucralfate 1 gram tablet (Carafate) 1 g PO 4X/DAY #60 tabs 06/11/22 [Rx Last Taken Unknown] Allergy/AdvReac Type Severity Reaction Status Date / Time No Known Allergies Allergy Verified 06/11/22 19:07 Social History Smoking Status: Former smoker ROS ROS ED Constitutional Constitutional ED: Denies chills or fever(s) Eyes Eyes: Denies change in vision or diplopia ENT ENT ED: Denies rhinorrhea or sore throat Cardiovascular Cardiovascular: Denies chest pain or palpitations Respiratory/Chest Respiratory/Chest: Denies cough or dyspnea Gastrointestinal Gastrointestinal: Reports abdominal pain and vomiting; Denies diarrhea or nausea Genitourinary Genitourinary ED: Denies dysuria or hematuria Musculoskeletal Musculoskeletal: Denies back pain or neck pain Integumentary Denies abscess or rash Neurologic Neurologic: Denies headache(s), paresthesias or weakness Psychiatric Psychiatric: Denies anxiety or suicidal thoughts EXAM Physical Exam Const Vital Signs: 06/12/22 08:12 06/12/22 10:48 06/12/22 12:00 Temperature 97.3 F L Temperature Source Temporal Pulse Rate 91 64 Respiratory Rate 16 14 Respiratory Pattern Blood Pressure 167/73 H 151/74 H 110/74 Blood Pressure Mean 104 99 86 Blood Pressure Source Blood Pressure Position Blood Pressure Location Baseline BP Pulse Ox 99 95 Oxygen Delivery Method Room Air Room Air 06/12/22 13:12 06/12/22 13:55 06/12/22 14:05 Temperature 97.9 F 97.9 F Temperature Source Temporal Temporal Pulse Rate 64 104 H 95 Respiratory Rate 14 18 18 Respiratory Pattern Normal Blood Pressure 110/74 131/77 H 148/77 H Blood Pressure Mean 86 95 100 Blood Pressure Source Monitor Monitor Blood Pressure Position Semi-Fowlers Semi-Fowlers Blood Pressure Location Right Arm Right Arm Baseline BP 110/74 110/74 Pulse Ox 100 99 Oxygen Delivery Method Room Air Room Air 06/12/22 14:10 06/12/22 14:15 06/12/22 14:28 Temperature 97.3 F L Temperature Source Temporal Pulse Rate 91 93 82 Respiratory Rate 18 18 18 Respiratory Pattern Blood Pressure 148/77 H 143/81 H 142/81 H Blood Pressure Mean 100 101 101 Blood Pressure Source Monitor Monitor Monitor Blood Pressure Position Semi-Fowlers Semi-Fowlers Semi-Fowlers Blood Pressure Location Right Arm Right Arm Right Arm Baseline BP 110/74 110/74 110/74 Pulse Ox 98 99 98 Oxygen Delivery Method Room Air Room Air Room Air 06/12/22 14:30 06/12/22 14:46 Temperature 97.2 F L Temperature Source Temporal Pulse Rate 94 Respiratory Rate 18 Respiratory Pattern Normal Blood Pressure 167/74 H Blood Pressure Mean 105 Blood Pressure Source Monitor Blood Pressure Position Semi-Fowlers Blood Pressure Location Right Arm Baseline BP 110/74 Pulse Ox 100 Oxygen Delivery Method Room Air Positive well nourished and well developed General Appearance ED: well developed and NAD HEENT Reports moist mucous membranes normocephalic and atraumatic Eyes PERRL and EOMs intact bilaterally Neck full ROM and supple Resp normal respiratory effort and clear to auscultation bilaterally Cardio regular rate, regular rhythm and no murmurs GI non-tender and non-distended Auscultation: normoactive bowel sounds Palpation: soft Back/Spine no CVA tenderness General Back: other FROM Extremity normal to inspection General Extremety ED: Negative for edema, pulses abnormal or tenderness General Extremity: Negative for edema or pulses abnormal Neuro oriented x3, CN's II-XII intact bilaterally and no sensory deficits noted Sensorium / Orientation: awake and alert Motor Exam: strength 5/5 throughout Skin no rashes or lesions noted and no wounds MDM MDM MDM Narrative Medical decision making narrative: Initially we tried to treat the patient noninvasively, by giving her glucagon and waiting an hour or 2, and then letting her drink gulps of carbonated beverage and pounding her heels down on the floor while standing. This did not result in her passing liquids, she vomited everything up. She had a small amount of blood which I think is probably related to irritation in the esophagus and/or Danica-Abarca tear. Discussed with GI Dr. Friend he is going to take her to endoscopy to clear the suspected obstruction. Discharge Plan Dx/Rx/DC Orders Clinical Impression: Esophageal obstruction due to food impaction Disposition Disposition: Acute Care Hospital [facility] Discharge Date/Time: 06/12/22 13:15
[2022-06-12] MEDS: Glucagon 1 MG/ML Syringe IM (09:08)
[2022-06-12] MEDS: 0.9% Normal Saline 1,000 ML 999 ML IV (09:18)
--- NOTE | 2022-06-12 11:48 | PCM.HP.STD ---
HPI - General General Date of Admission: 06/12/22 Date of Service: 06/12/22 Chief Complaint: Esophageal food impaction HPI Narrative HUNTER WALKER, is a 67 F who was seen here yesterday for similar issues that are not getting better.? She was eating ham and it got stuck in her esophagus, she has had that happen before and needed EGD and dilation, but that has been several years.? Yesterday she was able to pass cola, she states she is able to pass very little water right now but for the most part when she tries to drink a gulp of water it comes back up.? She is concerned that she is not going to be able to keep enough fluid down in order to follow-up as an outpatient.? She denies any new symptoms.? In fact, she states she has been having right upper quadrant pain since this happened yesterday, but that is not bothering her as much today as it was before.? She had a ultrasound and labs yesterday. [facility] Medical History Alcohol use disorder, moderate, dependence HTN (hypertension) TIA (transient ischemic attack) Home Medications aspirin 81 mg chewable tablet 81 mg PO DAILY@0800 ##30 01/12/18 [Rx Last Taken Unknown] atorvastatin 20 mg tablet 20 mg PO QHS #30 tabs 01/12/18 [Rx Last Taken Unknown] folic acid 1 mg tablet 1 mg PO DAILY #30 tabs 01/12/18 [Rx Last Taken Unknown] lisinopril 10 mg tablet 10 mg PO DAILY #30 tabs 01/12/18 [Rx Last Taken Unknown] ergocalciferol (vitamin D2) 1,250 mcg (50,000 unit) capsule 50,000 unit PO Q7D #8 caps 04/04/20 [Rx Last Taken Unknown] omeprazole 40 mg capsule,delayed release 40 mg PO DAILY #30 caps 06/11/22 [Rx Last Taken Unknown] sucralfate 1 gram tablet (Carafate) 1 g PO 4X/DAY #60 tabs 06/11/22 [Rx Last Taken Unknown] Allergy/AdvReac Type Severity Reaction Status Date / Time No Known Allergies Allergy Verified 06/11/22 19:07 Social History Smoking Status: Former smoker ROS Review of Systems ROS Unobtainable: other Constitutional Constitutional: Denies fatigue, fever(s), poor appetite, weight gain or weight loss ENT HEENT: Denies mouth lesions Cardiovascular Cardiovascular: Denies abdominal bloating, abdominal edema or abdominal pain Respiratory/Chest Respiratory/Chest: Denies change in mental status, change in phlegm color, chest congestion or chest tightness Gastrointestinal Gastrointestinal: Denies belching, bloating, change in bowel habits, change in stool character, chewing difficulty, coffee ground emesis, constipation, cramping, diarrhea, dyspepsia, dysphagia, early satiety, excessive flatus, fecal incontinence, heartburn, hematemesis, hematochezia, hemorrhoids, loose stools, melena, nausea, odynophagia, rectal bleeding, tenesmus, vomiting or weight changes Genitourinary Genitourinary: Denies abdominal discomfort, burning urination or itching Musculoskeletal Musculoskeletal: Reports as per HPI; Denies muscle weakness or myalgias Integumentary Integumentary: Denies jaundice Neurologic Neurologic: Denies lack of coordination or weakness Psychiatric Psychiatric: Denies confusion, depression, memory loss, mood swings, paranoia or suicidal ideation Endocrine Endocrinology: Denies systems reviewed and no addt'l complaints, except as documented Hematologic/Lymphatic Hematologic/Lymphatic: Denies anemia, easy bleeding, easy bruising or lymphadenopathy Allergic/Immunologic Allergic/Immunologic: Denies systems reviewed and no addt'l complaints, except as documented Vital Signs Vital Signs Vital Signs: 06/12/22 08:12 06/12/22 10:48 Temperature 97.3 F L Temperature Source Temporal Pulse Rate 91 Respiratory Rate 16 Blood Pressure 167/73 H 151/74 H Blood Pressure Mean 104 99 Pulse Ox 99 Oxygen Delivery Method Room Air Weight Weight: 175 lb Body Mass Index (BMI) 27.3 Physical Exam Const alert, oriented x3, no apparent distress, healthy appearing and well nourished General Appearance: cooperative, comfortable, well kempt and well developed Orientation / Consciousness: awake and oriented to person HEENT Head and Scalp: normocephalic and atraumatic Face and Sinus: normal facial exam Mouth: oral and palatal mucosa normal Eyes General Eye: normal appearance of both eyes Neck full ROM Lymph Lymphatic: no lymphadenopathy noted Chest inspection of chest normal Resp normal respiratory effort and no use of accessory muscles Cardio regular rate and regular rhythm GI normal to inspection, nondistended, normoactive bowel sounds, soft to palpation, non-tender, non-distended and no masses Auscultation: normoactive bowel sounds Palpation: soft Percussion: normal to percussion Rectal Exam: visual inspection normal and normal sphincter tone no CVA tenderness Back/Spine no CVA tenderness and normal ROM Extremity normal to inspection Peripheral Pulses: Yes pulses 2+ throughout Skin no rashes or lesions noted General Skin Exam: no breakdown, elasticity normal and turgor normal Neuro oriented x3 Motor Exam: strength 5/5 throughout Psych mental status grossly normal Appearance: grossly normal Attitude: calm Activity / Motor Behavior: appropriate eye contact Speech: normal speech Thought Process: normal thought process Thought Content: normal thought content Attention / Concentration: attention grossly intact Memory / Cognition: memory grossly intact Insight: insight good Judgement: judgement good Assessment & Plan Assessment/Plan (1) Esophageal obstruction due to food impaction: PLAN: She will need to undergo an EGD with foreign body removal. She was explained alternatives, risk, benefits include not withstanding bleeding, infection, sepsis, perforation, need for emergent surgery . Have an ASA of 1.
--- NOTE | 2022-06-12 13:05 | EGD_PTH ---
PATIENT: HUNTER WALKER LOC: EN U#:[id number] AGE/SX: 67/F ROOM: RE06/12/[address]: Dr. Leo Padilla DO : 1955 BED: DIS: 06/12/2022 SPEC #: [id number] RECD: 06/12/22 14:57 STATUS: FRANKY RIGOBERTO #: [id number] JORGE ALBERTO: 06/12/22 13:[address]: Leo Padilla DEPT: SURGICAL PATHOLOGY RECD BY: Ahsan Nickerson ENTERED: 06/13/22 08:03 SP TYPE: EGD BIOPSY OT DR: Mendez Varma Tissues: Esophagus, NOS Procedures: Special Stain Group II Surgery Specimen Level IV Alcian Blue/PAS (control) HEADER OPERATION: EGD ([facility] [place]) with food removal, biopsy PRE-OP DIAGNOSIS: Food impaction TISSUE SUBMITTED: Distal esophagus biopsy MICROSCOPIC DIAGNOSIS Distal esophagus, biopsy: Gastroesophageal junction with chronic inflammation. Changes of reflux. 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 No evidence of dysplasia. See comment. FLAVIA:arjun 06/14/2022 COMMENT Immunohistochemistry ([id number]) for P53 and Ki-67 will be performed and results will be reported separately. Alcian blue/PAS stain with matched control supports the above diagnosis. MICROSCOPIC DESCRIPTION Slides are reviewed. GROSS DESCRIPTION Received in fixative is one container labeled with the patient's name and designated distal esophagus biopsy. The specimen consists of multiple irregular fragments of light edwards soft tissue that in aggregate measure 2 x 0.8 x 0.1 cm. The specimen is totally submitted in one cassette. / FLAVIA:arjun 06/13/2022 TC:3 CPT: 10020, 28001
--- NOTE | 2022-06-12 13:58 | OP.CCLET_ITS ---
06/12/2022 Mendez Varma Re : Upper GI endoscopy procedure for Jackelyn Loera Dear Avani This procedure was performed on Sunday, June 12, 2022. My impressions and recommendations are as follows: Impressions : - Food in the lower third of the esophagus. Removal was successful. - Severe Schatzki ring. Dilated. - Z-line irregular, 38 cm from the incisors. Biopsied. - LA Grade C erosive esophagitis. Treated with a heater probe. - Medium-sized hiatal hernia. - No gross lesions in the first portion of the duodenum. Recommendations : - Discharge patient to home. - Clear liquid diet today. - Use Protonix (pantoprazole) 40 mg PO BID for 8 weeks. - Continue present medications. My findings are described in the full procedure note, which is enclosed. If I can be of further assistance, please feel free to contact me at . Sincerely, Leo Friend, 06/12/2022 1:57:50 PM This report has been signed electronically.
--- NOTE | 2022-06-12 13:58 | OP.EGD_ITS ---
Patient Name: Jackelyn Loera Procedure Date: 06/12/2022 12:53 PM Date of : 1955 Age: 67 Procedure: Upper GI endoscopy Indications: Foreign body in the esophagus Providers: Leo Padilla DO Medicines: Monitored Anesthesia Care Patient Profile: This is a 67 year old female. Refer to note in patient chart for documentation of history and physical. Patient has symptoms of acute dysphagia. Complications: No immediate complications. Procedure: Pre-Anesthesia Assessment: - Prior to the procedure, a History and Physical was performed, and patient medications and allergies were reviewed. The patient is competent. The risks and benefits of the procedure and the sedation options and risks were discussed with the patient. All questions were answered and informed consent was obtained. Patient identification and proposed procedure were verified by the physician in the pre-procedure area. Mental Status Examination: alert and oriented. Airway Examination: normal oropharyngeal airway and neck mobility. Respiratory Examination: clear to auscultation. CV Examination: normal. Prophylactic Antibiotics: The patient does not require prophylactic antibiotics. Prior Anticoagulants: The patient has taken no previous anticoagulant or antiplatelet agents. ASA Grade Assessment: II - A patient with mild systemic disease. After reviewing the risks and benefits, the patient was deemed in satisfactory condition to undergo the procedure. The anesthesia plan was to use monitored anesthesia care (MAC). Immediately prior to administration of medications, the patient was re-assessed for adequacy to receive sedatives. The heart rate, respiratory rate, oxygen saturations, blood pressure, adequacy of pulmonary ventilation, and response to care were monitored throughout the procedure. The physical status of the patient was re-assessed after the procedure. After obtaining informed consent, the endoscope was passed under direct vision. Throughout the procedure, the patient's blood pressure, pulse, and oxygen saturations were monitored continuously. The gastroscope was introduced through the mouth, and advanced to the second part of duodenum. The upper GI endoscopy was accomplished without difficulty. The patient tolerated the procedure well. Scope In: 1:33:59 PM Scope Out: 1:49:18 PM Total Procedure Duration Time 0 hours 15 minutes 19 seconds Findings: Food was found in the lower third of the esophagus. Removal of food was accomplished. Verification of patient identification for the specimen was done. Estimated blood loss was minimal. A severe Schatzki ring was found in the lower third of the esophagus. A guidewire was placed and the scope was withdrawn. Dilation was performed with a Savary dilator with no resistance at 45 Fr. The dilation site was examined following endoscope reinsertion and showed moderate improvement in luminal narrowing. Estimated blood loss was minimal. The Z-line was irregular and was found 38 cm from the incisors. Biopsies were taken with a cold forceps for histology. Verification of patient identification for the specimen was done. Estimated blood loss was minimal. LA Grade C (one or more mucosal breaks continuous between tops of 2 or more mucosal folds, less than 75% circumference) esophagitis with bleeding was found 34 to 37 cm from the incisors. Coagulation for hemostasis using heater probe was successful. Estimated blood loss was minimal. A medium-sized hiatal hernia was present. The exam of the stomach was otherwise normal. No gross lesions were noted in the first portion of the duodenum. Impression: - Food in the lower third of the esophagus. Removal was successful. - Severe Schatzki ring. Dilated. - Z-line irregular, 38 cm from the incisors. Biopsied. - LA Grade C erosive esophagitis. Treated with a heater probe. - Medium-sized hiatal hernia. - No gross lesions in the first portion of the duodenum. Recommendation: - Discharge patient to home. - Clear liquid diet today. - Use Protonix (pantoprazole) 40 mg PO BID for 8 weeks. - Continue present medications. Procedure Code(s): --- Professional --- 75931, 59, Esophagogastroduodenoscopy, flexible, transoral; with control of bleeding, any method 04815, Esophagogastroduodenoscopy, flexible, transoral; with removal of foreign body(s) 83295, Esophagogastroduodenoscopy, flexible, transoral; with insertion of guide wire followed by passage of dilator(s) through esophagus over guide wire 70063, 59, Esophagogastroduodenoscopy, flexible, transoral; with biopsy, single or multiple CPT copyright 2017 [employer]. All rights reserved. The codes documented in this report are preliminary and upon certified coder review may be revised to meet current compliance requirements. Leo Padilla DO 06/12/2022 1:57:50 PM This report has been signed electronically. Number of Addenda: 0 Note Initiated On: 06/12/2022 12:53 PM
== END 2022-06-12 15:15 | disposition home or self-care (01) ==
LOC: ED 12:44 → EN 14:12 → ACINP 14:12
PROVIDERS: Emergency Provider Emergency Medicine; PCP Family Medicine; Referring Provider Internal Medicine Gastroenterology; Visit Provider Internal Medicine Gastroenterology
PROC: 0DJ08ZZ Inspection of Upper Intestinal Tract, Via Natural or Artificial Opening Endoscopic (ICD-10-PCS; CPT 43235; principal; 2022-06-12 13:00)
DX: K22.70 Barrett's esophagus without dysplasia (principal); K22.2 Esophageal obstruction; K44.9 Diaphragmatic hernia without obstruction or gangrene; K20.90 Esophagitis, unspecified without bleeding; T18.108A Unspecified foreign body in esophagus causing other injury, initial encounter; I10 Essential (primary) hypertension; Z79.82 Long term (current) use of aspirin; Z86.73 Personal history of transient ischemic attack (TIA), and cerebral infarction without residual deficits; Z87.891 Personal history of nicotine dependence; Z79.899 Other long term (current) drug therapy; X58.XXXA Exposure to other specified factors, initial encounter
CPT/HCPCS: 43239; 43248; 43247; 43255; 88305; 88313; 88341; 88342; 99284; A4216; J1610; J2405; J3490

== ENCOUNTER → 2022-07-07 | Outpatient (CLI) | payer MEDICARE, SELFPAY ==
--- NOTE | 2022-07-07 15:57 | VDLE_ITS ---
Reason For Study: Phlebitis RIGHT LEFT CFV is compressible, spontaneous, phasic, GSV is normal. competent and demonstrates normal CFV is compressible, spontaneous, phasic, augmentation. competent, and demonstrates normal Procedure augmentation. This is a venous duplex using B-mode, color FV is compressible, spontaneous, phasic, flow and spectral Doppler. competent and demonstrates normal Exam performed in department. augmentation. The exam was diagnostic. POP V is compressible, spontaneous, phasic, A preliminary report was called and/or faxed competent and demonstrates normal to Luisana Mcdaniels RN at Dr. Freeman office. augmentation. T/P Trunk is compressible. PTV is compressible. LT PerV is compressible. LT noncompressible varicosity with echogenic intraluminal filling noted in the distal calf/proximal ankle. VL/Venous Duplex US, Unilateral Interpretation Summary There is no evidence of left lower extremity deep vein thrombosis. Left great s aphenous vein appears patent and compressible segmentally. Superficial thrombophlebitis left distal c jigna varicosities Normal flow patterns right common femoral vein Ordering Physician: Amor Narvaez Referring Physician: Amor Narvaez Performed By: Dragan Laughlin, RVAbdirashid
== END | disposition home or self-care (01) ==
LOC: CVS 15:55
PROVIDERS: PCP Family Medicine; Visit Provider Family Medicine
DX: I80.02 Phlebitis and thrombophlebitis of superficial vessels of left lower extremity (principal)
CPT/HCPCS: 93971

== ENCOUNTER 2023-01-08 07:44 | Emergency (ER) | payer MEDICARE, SELFPAY ==
[2023-01-08] VITALS (7 sets, daily range): BP systolic 134–167; BP diastolic 76–92; PULSE 78–123; RESP 14–21; TEMP 36.2; O2SAT 95–99; BMI 28.5
--- NOTE | 2023-01-08 08:08 | EKG12_ITS ---
Test Reason : SOB Blood Pressure : / mmHG Vent. Rate : 110 BPM Atrial Rate : 110 BPM P-R Int : 166 ms QRS Dur : 100 ms QT Int : 344 ms P-R-T Axes : 040 -41 023 degrees QTc Int : 465 ms Sinus tachycardia Left axis deviation Abnormal ECG Confirmed by JESSE JACOBS, GWEN ([id number]), online editor KATT NAVARRO ([id number]) on 01/10/2023 9:19:04 AM Referred By: Confirmed By:GWEN MOLINA MD
--- NOTE | 2023-01-08 08:29 | ED.VIS.DYS ---
HPI History of Present Illness Chief Complaint: Shortness of Breath Informant: patient Narrative Narrative: Patient is a 67-year-old female with history of TIA, hypertension, Rudolph's esophagus, hyperlipidemia and esophageal impaction presenting with shortness of breath. Patient states she woke up this morning to take a shower and felt she could not breathe. She states she has been feeling well all weekend (it is now Sunday) and that she just been feeling washed out. She has had a mild nonproductive cough. She states her symptoms are worse with exertion. States over the weekend she had chills and a subjective low-grade fever. She denies any pain in her chest, abdomen or anywhere else. Denies any swelling of her legs. Denies any recent travel. Does not think she is ever felt any like this before. Has remote history of tobacco use but stopped smoking 20 years ago. [facility] Medical History Alcohol use disorder, moderate, dependence HTN (hypertension) TIA (transient ischemic attack) Home Medications aspirin 81 mg chewable tablet 81 mg PO DAILY@0800 ##30 01/12/18 [Rx Last Taken Unknown] atorvastatin 20 mg tablet 20 mg PO QHS #30 tabs 01/12/18 [Rx Last Taken Unknown] folic acid 1 mg tablet 1 mg PO DAILY #30 tabs 01/12/18 [Rx Last Taken Unknown] lisinopril 10 mg tablet 10 mg PO DAILY #30 tabs 01/12/18 [Rx Last Taken Unknown] ergocalciferol (vitamin D2) 1,250 mcg (50,000 unit) capsule 50,000 unit PO Q7D #8 caps 04/04/20 [Rx Last Taken Unknown] sucralfate 1 gram tablet (Carafate) 1 g PO 4X/DAY #60 tabs 06/11/22 [Rx Last Taken Unknown] omeprazole 40 mg capsule,delayed release 40 mg PO QAM #90 caps 08/31/22 [Rx Last Taken Unknown] albuterol sulfate 90 mcg/actuation aerosol inhaler (Ventolin HFA) 1 - 2 puff inhalation Q4H PRN PRN Wheezing #1 inh 01/08/23 [Rx Last Taken Unknown] prednisone 20 mg tablet 40 mg (2 x 20 mg) PO DAILY #10 tabs 01/08/23 [Rx Last Taken Unknown] Allergy/AdvReac Type Severity Reaction Status Date / Time No Known Allergies Allergy Verified 08/31/22 13:23 Social History Smoking Status: Former smoker alcohol intake: current alcohol intake frequency: holidays/special occasions only Alcohol type: beer and wine ROS ROS ED Constitutional Constitutional ED: Reports chills and fever(s) Eyes Eyes: Denies change in vision ENT ENT ED: Denies sore throat Cardiovascular Cardiovascular: Denies chest pain or palpitations Respiratory/Chest Respiratory/Chest: Reports cough, dyspnea and dyspnea on exertion Gastrointestinal Gastrointestinal: Denies abdominal pain, diarrhea, nausea or vomiting Genitourinary Genitourinary ED: Denies dysuria Musculoskeletal Musculoskeletal: Denies arthralgias or myalgias Integumentary Denies rash Neurologic Neurologic: Reports weakness; Denies headache(s) Psychiatric Psychiatric: Denies anxiety Hematologic/Lymphatic Hematologic/Lymphatic: Denies easy bleeding or easy bruising EXAM Physical Exam Const Vital Signs: 01/08/23 07:45 01/08/23 07:44 01/08/23 08:25 Temperature 97.1 F L Temperature Source Temporal Pulse Rate 123 H Respiratory Rate 20 H Respiratory Effort Short of Breath Respiratory Depth Shallow Respiratory Pattern Irregular Blood Pressure 167/92 H Blood Pressure Mean 117 Pulse Ox 99 Oxygen Delivery Method Room Air Room Air Room Air 01/08/23 08:44 01/08/23 10:00 01/08/23 11:51 Temperature Temperature Source Pulse Rate 78 104 H 107 H Respiratory Rate 14 21 H 18 Respiratory Effort Respiratory Depth Respiratory Pattern Normal Blood Pressure 134/76 H 151/85 H Blood Pressure Mean 95 107 Pulse Ox 98 95 Oxygen Delivery Method Room Air Positive well nourished and well developed General Appearance ED: well developed and NAD HEENT Reports moist mucous membranes atraumatic Eyes PERRL and EOMs intact bilaterally Neck supple and no JVD Resp normal respiratory effort and clear to auscultation bilaterally Cardio regular rhythm and no murmurs Cardio Narrative: 2+ radial and PT pulses Rate: tachycardic GI non-tender and non-distended Extremity normal to inspection General Extremety ED: Negative for edema or tenderness General Extremity: Negative for edema Neuro oriented x3 Sensorium / Orientation: alert; Negative for confused Motor Exam: Negative for general weakness Psych mental status grossly normal Skin no wounds Rashes: no rashes MDM MDM MDM Narrative Medical decision making narrative: Patient is evaluated for shortness of breath. States she has maybe had some viral prodrome this week and with a mild cough and just not feeling well. She had chills and subjective fever. Factious work-up largely negative in the emergency room. No signs of pneumonia. Cardiac work-up including EKG which is nonischemic and delta high sensitive troponin are normal at 3 and 4. No changes in EKG consistent with pericarditis/myocarditis. D-dimer is significantly elevated and CTA of the chest is obtained however this is negative for any acute PE. Patient does have some lung nodules which she is informed of the need for outpatient follow-up. Patient does have some mildly rhonchorous breath sounds and is given an aerosol treatment. Her breath sounds improved on repeat evaluation however she states she feels about the same. She is given IV fluids with some improvement of her tachycardia. Patient be treated as a viral syndrome and placed on a course of steroids given her rhonchi however I do not see any pneumonia, leukocytosis and she is afebrile in the ER so I do not think she requires antibiotics at this time. She is comfortable this plan of care. She is given return precautions. Encouraged follow-up with primary care doctor. Discharged home in stable condition. Patient is mildly hypertensive and tachycardic she is not tremulous and is acting appropriate. I do not think this is acute alcohol withdrawal. Lab Data Labs: Laboratory Results - last 24 hr 01/08/23 01/08/23 08:25 11:03 WBC 8.5 RBC 4.07 L Hgb 12.0 Hct 36.4 L MCV 89.4 MCH 29.5 MCHC 33.0 RDW Std Deviation 44.0 H RDW Coeff of Toya 13.5 Plt Count 277 MPV 9.8 Immature Gran % (Auto) 0.800 Neut % (Auto) 81.2 H Lymph % (Auto) 6.5 L Armstrong % (Auto) 7.7 Eos % (Auto) 3.3 Baso % (Auto) 0.5 Absolute Neuts (auto) 6.9 Absolute Lymphs (auto) 0.55 L Nucleated RBC % 0 Differential Comment SCANNED D-Dimer Quant (PE/DVT) 3.15 H* Sodium 132 L Potassium 3.6 Chloride 103 Carbon Dioxide 24.0 Anion Gap 5 BUN 10 Creatinine 0.66 Estim Creat Clear Calc 49.70 Est GFR (MDRD) Af Amer 114 Est GFR (MDRD) Non-Af 94 BUN/Creatinine Ratio 15.2 Glucose 145 H Calcium 9.3 Magnesium 2.2 Troponin I High Sens 3 4 B-Natriuretic Peptide 3.3 TSH 3.13 Radiography Diagnostic Testing: Clinical Impression(s) from Imaging Studies Chest CTA 01/08/23 09:11 IMPRESSION: Lung nodules. Short-term follow-up recommended. No evidence of pulmonary embolism. Electronically Signed: Sg Prudence, at 9:57 EDT [place] Location ID and State: [facility] [place] Tel , Service support , Chest X-Ray 01/08/23 09:12 IMPRESSION: No radiographic evidence of acute cardiopulmonary disease. Electronically Signed: Sg Prudence, at 9:39 EDT [place] Location ID and State: [facility] [place] Tel , Service support , Rhythm Strip Rhythm Strip: Sinus Tach Rate: 110 Ectopy: None EKG Initial EKG: Attestation: I personally reviewed and interpreted this EKG as follows: Interpretation: Sinus Tachycardia Comments: Sinus tachycardic at a rate of 110 bpm Left axis deviation Normal intervals Normal ST segments Compared to prior EKG on 04/02/2020 patient is no longer tachycardic, has a new left axis and does not currently have an incomplete right bundle chely block Discharge Plan Triage Chief Complaint: Shortness of Breath ED Provider: Jessica Lay Dx/Rx/DC Orders Clinical Impression: Acute dyspnea, Acute viral syndrome, Tachycardia Instructions: ED Dyspnea, ED Viral Syndrome (Adult) Prescriptions: New prednisone 20 mg tablet 40 mg PO DAILY Qty: 10 0RF albuterol sulfate [Ventolin HFA] 90 mcg/actuation HFA aerosol inhaler 1 - 2 puff inhalation Q4H PRN PRN (Reason: Wheezing) Qty: 1 0RF No Action omeprazole 40 mg capsule,delayed release(DR/EC) 40 mg PO QAM Qty: 90 3RF atorvastatin 20 MG tablet 20 mg PO QHS Qty: 30 0RF lisinopril 10 MG tablet 10 mg PO DAILY Qty: 30 0RF aspirin 81 MG tablet,chewable 81 mg PO DAILY@0800 Qty: 30 0RF folic acid 1 MG tablet 1 mg PO DAILY Qty: 30 0RF ergocalciferol (vitamin D2) 50,000 UNIT capsule 50,000 unit PO Q7D Qty: 8 0RF sucralfate [Carafate] 1 gram tablet 1 g PO 4X/DAY Qty: 60 0RF Primary Care Provider: Amor Narvaez Referrals: Amor Narvaez, [Primary Care Provider] - Activity Restrictions/Additional Instructions: Your work-up showed some pulmonary nodules but otherwise no signs of pneumonia, stress on the heart, blood clot in the lungs or electrolyte abnormalities. We will treat you as if there is a viral syndrome that is causing this. If your symptoms worsen or change please return to the emergency room. Disposition Disposition: Home, Self Care
[2023-01-08 08:47] LABS: Absolute Lymphocyte Count 0.55 X10^3/uL (0.83-4.51); Absolute Neutrophil Count 6.9 X10^3/uL (2.0-7.7); Basophil# 0.04 X10^3/uL; Basophil% 0.5 % (0-1); Eosinophil# 0.28 X10^3/uL; Eosinophils% 3.3 % (0-5); Hematocrit 36.4 % (37-47); Lymphocyte # 0.55 X10^3/ul (0.83-4.51); Lymphocyte % 6.5 % (19-41); Mean Corpuscular Hgb 29.5 pg (27.0-32.0); Mean Corpuscular Volume 89.4 fL (81-99); Mean Platelet Vol. 9.8 fl (6.2-12.0); Monocyte# 0.65 X10^3/uL; Monocyte% 7.7 % (0-10); NRBC Flagged by Analyzer 0 % (0-5); Neutrophil % 81.2 % (47-70); POSITIVE DIFFERENTIAL YES; Platelet Count 277 K/mm3 (150-450); RBC Distribution Width CV 13.5 % (11.6-14.6); Red Blood Count 4.07 M/mm3 (4.2-5.4); White Blood Count 8.5 K/mm3 (4.4-11.0)
[2023-01-08 08:50] LABS: Differential Indicated SCAN CRITERIA MET
[2023-01-08 09:11] LABS: D-Dimer Quantitative (DVT/PE) 3.15 FEU/ug/m (0.27-0.49)
--- NOTE | 2023-01-08 09:11 | CT_ITS ---
STUDY: CTA CHEST REASON FOR EXAM: Female, 67 years old. sob, elevated dimer RADIATION DOSAGE (If Supplied By Facility): CTDIvol = ( 10.77 ) mGy, DLP = ( 477.19 ) mGycm TECHNIQUE: The examination was performed with the intravenous administration of IV 100mL Isovue-370. Post-processing of the angiographic images was performed, with multiplanar reformation and 3D reconstruction. Individualized dose optimization techniques were used for this CT. COMPARISON: FINDINGS: Normal enhancement of the main pulmonary artery and right and left pulmonary arteries. Normal enhancement of the bilateral peripheral pulmonary arteries. There is no demonstrated pulmonary embolism. Normal thoracic aorta and visualized great vessels. There is no demonstrated aortic dissection. Normal heart and pericardium. Normal mediastinum. Normal hilar regions. Normal visualized trachea and bronchi. There is a 7 mm nodular density in the lingula. There is a 6 mm pleural-based nodule in the right lower lobe. Normal pleura. Normal chest wall structures. Normal osseous structures. Normal visualized upper abdomen. CT/CTA Chest W/WO Contrast IMPRESSION: Lung nodules. Short-term follow-up recommended. No evidence of pulmonary embolism. Electronically Signed: Sg Foss, at 9:57 EDT ,
--- NOTE | 2023-01-08 09:12 | RAD_ITS ---
INDICATION: chest pain EXAMINATION/TECHNIQUE: X-RAY - XR Chest 1 View COMPARISON: FINDINGS: LINES/DEVICES: None. LUNGS: No consolidation, edema or effusion. No pneumothorax. MEDIASTINUM AND CARDIOVASCULAR STRUCTURES: Cardiac silhouette not enlarged. Central airways and mediastinal contour are unremarkable. BONES AND SOFT TISSUES: Unremarkable. RAD/Chest 1 View (Portable) IMPRESSION: No radiographic evidence of acute cardiopulmonary disease. Electronically Signed: Sg Foss, at 9:39 EDT ,
[2023-01-08 09:17] LABS: Anion Gap 5 (5-15); BUN 10 mg/dL (7-18); BUN/Creat Ratio 15.2 RATIO (10-20); Calcium,Total 9.3 mg/dL (8.5-10.1); Chloride 103 mmol/L (98-107); Creatinine, Serum 0.66 mg/dL (0.55-1.02); EST Glomerular Filtration Rate 94 mL/min (>60); Est Glom Filt Rate - Afr Amer 114 mL/min (>60); Glucose 145 mg/dL (74-106); Magnesium 2.2 mg/dL (1.6-2.6); Potassium 3.6 mmol/L (3.5-5.1); Sodium Level 132 mmol/L (136-145); Thyroid Stim Hormone (TSH) 3.13 uIU/mL (0.358-3.74); Troponin-I HS (w/2H Reflex) 3 pg/mL (3.0-54.0)
[2023-01-08 09:30] LABS: Differential Comment SCANNED
[2023-01-08 09:39] LABS: BNP,B-Type NATRIURETIC PEPTIDE 3.3 pg/mL (0-100)
[2023-01-08] MEDS: 0.9% Normal Saline 1,000 ML 999 ML IV (09:49)
[2023-01-08 10:34] LABS: Reflex Troponin-HS? (from REC) Y
[2023-01-08 11:42] LABS: Troponin-I HS 4 pg/mL (3.0-54.0)
[2023-01-08] MEDS: Albuterol 2.5 MG/3 ML VIAL.NEB. INHALATION (11:51)
== END 2023-01-08 12:27 | disposition home or self-care (01) ==
PROVIDERS: Emergency Provider Emergency Medicine; PCP Family Medicine; Visit Provider Emergency Medicine
DX: B34.9 Viral infection, unspecified (principal); R68.83 Chills (without fever); R00.0 Tachycardia, unspecified; R06.00 Dyspnea, unspecified; E78.5 Hyperlipidemia, unspecified; I10 Essential (primary) hypertension; Z87.891 Personal history of nicotine dependence; Z86.73 Personal history of transient ischemic attack (TIA), and cerebral infarction without residual deficits; Z79.899 Other long term (current) drug therapy; Z79.82 Long term (current) use of aspirin
CPT/HCPCS: 71045; 71275; 80048; 83735; 83880; 84443; 84484; 85025; 85379; 93005; 94640; 96360; 99284; Q9967; A4216

== ENCOUNTER → 2023-02-15 | Outpatient (CLI) | payer MEDICARE, SELFPAY ==
--- NOTE | 2023-02-15 15:18 | CT_ITS ---
INDICATION: LUNG NODULES EXAMINATION: CT Chest W/ Contrast Injection TECHNIQUE: Helically acquired images were obtained of the chest following administration of IV contrast. A radiation dose optimization technique was used for this scan. 3D postprocessing images including MIPS were reviewed. IV Contrast dosage and agent: IV 100mL Isovue-300 COMPARISON: 01/08/2023. FINDINGS: Lungs: Stable to slightly increased size of a 7 mm pleural-based nodule in the right lower lobe. Interval decrease in size of lingular nodule now measuring 3 mm, previously 7 mm. Scattered subsegmental atelectasis. Mediastinum: The cardiomediastinal silhouette is not enlarged. No mediastinal, hilar or axillary adenopathy. Moderate aortic arch and coronary artery calcifications. No obvious filling defect seen within the visualized pulmonary arteries. Pleura: Unremarkable Bones/Soft tissues: There are diffuse degenerative changes of the spine. Upper abdomen: No visualized abnormalities in the upper abdomen. CT/Chest WITH Contrast IMPRESSION: Stable to slightly increased size of a 7 mm pleural-based nodule in the right lower lobe. Per Fleischner criteria, recommend additional follow-up chest CT in 3-6 months. Interval decrease in size of lingular nodule now measuring 3 mm, previously 7 mm. No new nodules. Electronically Signed: Giovany Vickers MD at 20:42 EDT ,
[2023-02-15 15:35] LABS: CREATININE FINGERSTICK < 0.9 mg/dL (0.55-1.02); EGFR FINGERSTICK > 60.0000 mL/min (>60)
== END | disposition home or self-care (01) ==
LOC: CT 14:51
PROVIDERS: PCP Family Medicine; Referring Provider Nurse Practitioner Family; Visit Provider Nurse Practitioner Family
DX: R91.8 Other nonspecific abnormal finding of lung field (principal)
CPT/HCPCS: 71260; Q9967

== ENCOUNTER 2023-06-19 10:23 | Day surgery (SDC) | payer MEDICARE, SELFPAY ==
--- NOTE | 2023-06-17 11:30 | ESO_PTH ---
PATHOLOGY RESULTS PATIENT: HUNTER WALKER LOC: EN U#:[id number] AGE/SX: 68/F ROOM: RE06/19/[address]: Dr. Leo Padilla DO : 1955 BED: DIS: 06/19/2023 SPEC #: [id number] RECD: 06/19/23 13:45 STATUS: FRANKY RIGOBERTO #: [id number] JORGE ALBERTO: 06/17/23 11:[address]: Leo Padilla DEPT: SURGICAL PATHOLOGY RECD BY: Manju Ramirez ENTERED: 06/19/23 13:45 SP TYPE: DMITRY MILES DR: Dr. Amor Narvaez DO Tissues: Esophagus, NOS Procedures: Special Stain Group II Surgery Specimen Level IV Alcian Blue/PAS (control) HEADER OPERATION: EGD, biopsy PRE-OP DIAGNOSIS: Rudolph's esophagus TISSUE SUBMITTED: Distal esophagus biopsy MICROSCOPIC DIAGNOSIS Distal esophagus, biopsy: Gastroesophageal junctional mucosa with chronic inflammation. Changes of reflux. See comment. AM:arjun 06/20/2023 COMMENT Alcian blue/PAS stain with matched control supports the above diagnosis. MICROSCOPIC DESCRIPTION Slides are reviewed. GROSS DESCRIPTION Received in fixative is one container labeled with the patient's name and designated distal esophagus biopsy. The specimen consists of multiple irregular fragments of light edwards soft tissue that in aggregate measure 1.5 x 0.6 x 0.1 cm. The specimen is totally submitted in one cassette. / SJ:arjun 06/19/2023 TC:3 CPT: 56434, 39143
[2023-06-19] MEDS: Lactated Ringers 1,000 ML 15 ML IV (10:48)
[2023-06-19 10:50] VITALS: BP 158/72; PULSE 71; RESP 16; TEMP 36.6; O2SAT 100; BMI 30.2
--- NOTE | 2023-06-19 11:28 | HP.PCM_ITS ---
History and Physical Date of Admission: 06/19/23 67 F who presents to the office today for f/u ED visit. Presented to ED on 06/11/22 for food stuck in esophagus. Dr Padilla treated severe Schatzki ring. She was treated with one month of omeprazole 40 mg daily, no adverse effects. She had had dysphagia x 5 yrs. No dysphagia since her EGD. Her bx is positive for Rudolph's, negative for dysplasia. She never gets heartburn or acid reflux. No abd pain. No nausea, vomiting, early satiety, diarrhea, constipation, melena, hematochezia. 06/12/22 EGD Impression: ? - Food in the lower third of the esophagus. ? Removal was successful. ? - Severe Schatzki ring. Dilated. ? - Z-line irregular, 38 cm from the incisors. ? Biopsied. ? - LA Grade C erosive esophagitis. Treated with ? a heater probe. ? - Medium-sized hiatal hernia. ? - No gross lesions in the first portion of the ? duodenum. MICROSCOPIC DIAGNOSIS Distal esophagus, biopsy: Gastroesophageal junction with chronic inflammation. Changes of reflux. 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 No evidence of dysplasia ROS Const Constitutional: No fatigue ENT ENT: Positive for difficulty swallowing Gastro GI: Positive for difficulty swallowing; No abdominal pain, belching, bloating, change in bowel habits, change in stool character, coffee ground emesis, constipation, cramping, diarrhea, heartburn, feeling full early, excessive flatus, incontinent of stools, Vomiting blood/hematemesis, Blood in stool, loose stools, Black,tarry stools, nausea/dyspepsia, pain with swallowing, vomiting or other Musc Musculoskeletal: No joint pain Skin Skin: No yellowing of the eye or itchy eyes Psych Psychiatric: No anxiety and No depression Endo Endocrine: No fatigue Aller/Imm Allergy/Immunologic: No itchy eyes Mukesh/Lymp Hematologic/Lymphatic: No easy bleeding or easy bruising Exam Const General: cooperative and comfortable Nutritional Appearance: overweight Orientation: alert, awake and oriented x3 Quality Reporting Tobacco Screening ([facility] 138) Smoking Status: Former smoker Assessment and Plan Assessment and Plan (1) Rudolph's esophagus: Status: Acute Plan: 67 yr old female with hx food stuck in esophagus due to severe Schatzki ring, Dr Padilla found LA Grade C reflux esophagitis, bx positive for Rudolph's, negative for dysplasia. We discussed those findings, hiatal hernia, need to remain on omeprazole 40 mg QAM indefinitely. Will repeat EGD in 05/2023 or 06/2023. She will notify us for any dysphagia prior to that. Medications: Changed From omeprazole 40 mg PO DAILY 30 caps 0RF To omeprazole 40 mg PO QAM 90 caps 3RF I have examined the patient and the H&P has been reviewed. There are no clinical changes since date of exam.
[2023-06-19 11:57] VITALS: BP 107/46; BP 158/72; PULSE 86; RESP 16; TEMP 36.3; O2SAT 98
[2023-06-19 12:00] VITALS: BP 103/49; BP 158/72; PULSE 90; RESP 16; O2SAT 97
--- NOTE | 2023-06-19 12:00 | OP.CCLET_ITS ---
06/19/2023 Amor Narvaez [address] [facility] [address] Re : Upper GI endoscopy procedure for Jackelyn [facility] Dear Dr. Narvaez This procedure was performed on Monday, June 19, 2023. 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 Biopsied. - Low-grade of narrowing Schatzki ring. Dilated. - Small hiatal hernia. - Normal first portion of the duodenum. Recommendations : - Discharge patient to home. - Resume previous diet. - Continue present medications. - Await pathology results. - Repeat upper endoscopy in 1 year for surveillance. My findings are described in the full procedure note, which is enclosed. If I can be of further assistance, please feel free to contact me at . Sincerely, Leo Padilla, 06/19/2023 11:59:50 AM This report has been signed electronically.
--- NOTE | 2023-06-19 12:00 | OP.EGD_ITS ---
Patient Name: Jackelyn Loera Procedure Date: 06/19/2023 11:41 AM Date of : 1955 Age: 68 Procedure: Upper GI endoscopy Indications: Dysphagia, Follow-up of Rudolph's esophagus Providers: Leo Padilla DO Referring MD: Amor Narvaez Medicines: Monitored Anesthesia Care Patient Profile: This is a 68 year old female. Refer to note in patient chart for documentation of history and physical. Patient has symptoms of chronic dysphagia and chronic heartburn. Complications: No immediate complications. Procedure: Pre-Anesthesia Assessment: - Prior to the procedure, a History and Physical was performed, and patient medications and allergies were reviewed. The patient is competent. The risks and benefits of the procedure and the sedation options and risks were discussed with the patient. All questions were answered and informed consent was obtained. Patient identification and proposed procedure were verified by the physician. Mental Status Examination: normal. Prophylactic Antibiotics: The patient does not require prophylactic antibiotics. Prior Anticoagulants: The patient has taken no anticoagulant or antiplatelet agents. ASA Grade Assessment: II - A patient with mild systemic disease. After reviewing the risks and benefits, the patient was deemed in satisfactory condition to undergo the procedure. The anesthesia plan was to use monitored anesthesia care (MAC). Immediately prior to administration of medications, the patient was re-assessed for adequacy to receive sedatives. The heart rate, respiratory rate, oxygen saturations, blood pressure, adequacy of pulmonary ventilation, and response to care were monitored throughout the procedure. The physical status of the patient was re-assessed after the procedure. After obtaining informed consent, the endoscope was passed under direct vision. Throughout the procedure, the patient's blood pressure, pulse, and oxygen saturations were monitored continuously. The gastroscope was introduced through the mouth, and advanced to the second part of duodenum. The upper GI endoscopy was accomplished without difficulty. The patient tolerated the procedure well. Scope In: 11:47:33 AM Scope Out: 11:52:28 AM Total Procedure Duration Time 0 hours 4 minutes 55 seconds Findings: There were esophageal mucosal changes secondary to established short-segment Rudolph's disease present in the lower third of the esophagus. The maximum longitudinal extent of these mucosal changes was 2 cm in length. Mucosa was biopsied with a cold forceps for histology in a targeted manner at intervals of 1 cm in the lower third of the esophagus. One specimen bottle was sent to pathology. Verification of patient identification for the specimen was done. Estimated blood loss was minimal. A low-grade of narrowing Schatzki ring was found at the gastroesophageal junction. A guidewire was placed and the scope was withdrawn. Dilation was performed with a Savary dilator with no resistance at 45 Fr. The dilation site was examined and showed moderate improvement in luminal narrowing. Estimated blood loss was minimal. A small hiatal hernia was present. No other significant abnormalities were identified in a careful examination of the stomach. The first portion of the duodenum was normal. 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 Biopsied. - Low-grade of narrowing Schatzki ring. Dilated. - Small hiatal hernia. - Normal first portion of the duodenum. Recommendation: - Discharge patient to home. - Resume previous diet. - Continue present medications. - Await pathology results. - Repeat upper endoscopy in 1 year for surveillance. Procedure Code(s): --- Professional --- 57344, Esophagogastroduodenoscopy, flexible, transoral; with insertion of guide wire followed by passage of dilator(s) through esophagus over guide wire 16043, 59,51, Esophagogastroduodenoscopy, flexible, transoral; with biopsy, single or multiple CPT copyright 2021 [employer]. All rights reserved. The codes documented in this report are preliminary and upon graduate student review may be revised to meet current compliance requirements. Leo Padilla DO 06/19/2023 11:59:50 AM This report has been signed electronically. Number of Addenda: 0 Note Initiated On: 06/19/2023 11:41 AM
[2023-06-19 12:05] VITALS: BP 108/49; BP 158/72; PULSE 82; RESP 16; O2SAT 96
[2023-06-19 12:10] VITALS: BP 106/76; BP 158/72; PULSE 81; RESP 16; TEMP 36.1; O2SAT 98
[2023-06-19 12:35] VITALS: BP 158/72
== END 2023-06-19 12:37 | disposition home or self-care (01) ==
LOC: EN 10:27 → AC 10:35
PROVIDERS: PCP Family Medicine; Referring Provider Family Medicine; Visit Provider Internal Medicine Gastroenterology
PROC: 0DJ08ZZ Inspection of Upper Intestinal Tract, Via Natural or Artificial Opening Endoscopic (ICD-10-PCS; CPT 43235; principal; 2023-06-19 11:25)
DX: K22.70 Barrett's esophagus without dysplasia (principal); K44.9 Diaphragmatic hernia without obstruction or gangrene; Z87.891 Personal history of nicotine dependence; K22.2 Esophageal obstruction
CPT/HCPCS: 43248; 43239; 88305; 88313; J7120; J2405

== ENCOUNTER → 2024-02-15 | Outpatient (CLI) | payer MEDICARE, SELFPAY ==
[2024-02-15 17:39] LABS: Absolute Lymphocyte Count 1.21 X10^3/uL (0.83-4.51); Absolute Neutrophil Count 5.5 X10^3/uL (2.0-7.7); Basophil# 0.05 X10^3/uL; Basophil% 0.6 % (0-1); Eosinophils% 3.9 % (0-5); Hematocrit 36.1 % (37-47); Hemoglobin 11.7 g/dL (12.0-15.0); Lymphocyte # 1.21 X10^3/ul (0.83-4.51); Lymphocyte % 15.7 % (19-41); Mean Corp Hgb Conc 32.4 g/dL (32-36); Mean Corpuscular Hgb 28.5 pg (27.0-32.0); Mean Corpuscular Volume 87.8 fL (81-99); Monocyte# 0.59 X10^3/uL; Monocyte% 7.7 % (0-10); NRBC Flagged by Analyzer 0 % (0-5); Neutrophil # 5.52 X10^3/uL (2.7-7.7); Neutrophil % 71.7 % (47-70); Platelet Count 305 K/mm3 (150-450); RBC Distribution Width CV 13.3 % (11.6-14.6); RBC Distribution Width SD 42.9 fl (35.1-43.9); Red Blood Count 4.11 M/mm3 (4.2-5.4); White Blood Count 7.7 K/mm3 (4.4-11.0)
[2024-02-15 18:05] LABS: Vitamin D,25 Hydroxy 59.5 ng/mL
[2024-02-15 18:13] LABS: AST(SGOT) 16 U/L (15-37); Alanine Aminotransfer ALT/SGPT 23 U/L (13-56); Albumin, Serum 3.8 g/dL (3.2-5.0); Alkaline Phosphatase 136 U/L (45-117); Anion Gap 10 (5-15); BUN 15 mg/dL (7-18); BUN/Creat Ratio 23.4 RATIO (10-20); Calcium,Total 9.4 mg/dL (8.5-10.1); Chloride 101 mmol/L (98-107); Cholesterol 160 mg/dL (200); Creatinine, Serum 0.64 mg/dL (0.55-1.02); EST Glomerular Filtration Rate 97 mL/min (>60); Est Glom Filt Rate - Afr Amer 117 mL/min (>60); Globulin 3.9 g/dL (2.2-4.2); Glucose 77 mg/dL (74-106); High Density Lipoprotein 72 mg/dL; Potassium 3.8 mmol/L (3.5-5.1); Protein, Total 7.7 g/dL (6.4-8.2); Sodium Level 133 mmol/L (136-145); Triglycerides 114 mg/dL; Very Low Density Lipoprotein 23 mg/dL (5-40)
== END | disposition home or self-care (01) ==
LOC: BFHLAB 14:38
PROVIDERS: PCP Family Medicine; Referring Provider Family Medicine; Visit Provider Family Medicine
DX: I10 Essential (primary) hypertension (principal); E55.9 Vitamin D deficiency, unspecified; E78.5 Hyperlipidemia, unspecified
CPT/HCPCS: 36415; 80053; 80061; 82306; 85025

== ENCOUNTER → 2024-03-17 | Outpatient (CLI) | payer MEDICARE, SELFPAY ==
--- NOTE | 2024-03-17 13:22 | CT_ITS ---
STUDY: CT CHEST WITH CONTRAST REASON FOR EXAM: Female, 69 years old. LUNG NODULES RADIATION DOSAGE (If Supplied By Facility): CTDIvol = ( 11.93 ) mGy, DLP = ( 456.32 ) mGycm TECHNIQUE: Transaxial imaging was performed following intravenous administration of IV 100mL Isovue-300. Multiplanar coronal and sagittal images were reformatted. Individualized dose optimization techniques were used for this CT. COMPARISON: Comparison is made with prior study February 15, 2023. FINDINGS: CHEST Stable scarring at the lung apices more prominent on the right side. Stable 6 mm nodule in the peripheral anterior aspect of the right lower lobe. 12 month follow-up is recommended. There is no demonstrated pleural abnormality. There are calcifications of the coronary arteries. Normal mediastinum. Normal hilar regions. Normal unenhanced pulmonary arteries. There is atherosclerotic calcification of the aortic arch. There are degenerative changes of the thoracic spine. There is no demonstrated abnormality of the visualized upper abdomen. CT/Chest WITH Contrast IMPRESSION: Stable examination. 12 month follow-up examination recommended. Electronically Signed: Ezekiel Jj MD at 12:40 EDT ,
== END | disposition home or self-care (01) ==
LOC: CT 13:18
PROVIDERS: PCP Family Medicine; Referring Provider Nurse Practitioner Family; Visit Provider Nurse Practitioner Family
DX: R91.8 Other nonspecific abnormal finding of lung field (principal)
CPT/HCPCS: 71260; Q9967

== ENCOUNTER → 2025-02-23 | Outpatient (CLI) | payer MEDICARE, SELFPAY ==
[2025-02-23 15:07] LABS: Hematocrit 36.2 % (37-47); Hemoglobin 12.1 g/dL (12.0-15.0); Immature Granulocytes Count 0.020 X10^3/uL (0.0-0.0); Mean Corp Hgb Conc 33.4 g/dL (32-36); Mean Corpuscular Volume 87.0 fL (81-99); Mean Platelet Vol. 10.3 fl (6.2-12.0); NRBC Flagged by Analyzer 0 % (0-5); Platelet Count 275 K/mm3 (150-450); RBC Distribution Width CV 13.4 % (11.6-14.6); RBC Distribution Width SD 42.4 fl (35.1-43.9); Red Blood Count 4.16 M/mm3 (4.2-5.4); White Blood Count 7.7 K/mm3 (4.4-11.0)
[2025-02-23 16:02] LABS: AST(SGOT) 24 U/L (<=31); Alanine Aminotransfer ALT/SGPT 26 U/L (<=34); Albumin, Serum 4.4 g/dL (3.4-4.8); Alkaline Phosphatase 136 U/L (35-104); Anion Gap 14 (5-15); BUN 13 mg/dL (4-19); BUN/Creat Ratio 18.2 RATIO (10-20); Calcium,Total 9.5 mg/dL (7.6-11.0); Carbon Dioxide 20.5 mmol/L (21.0-32.0); Chloride 101 mmol/L (98-108); Cholesterol 161 mg/dL (<=200); Globulin 3.0 g/dL (2.2-4.2); Glucose 94 mg/dL (70-99); Low Density Lipoprotein Calc. 76 mg/dL; Potassium 4.2 mmol/L (3.3-5.1); Triglycerides 75 mg/dL; Very Low Density Lipoprotein 15 mg/dL (5-40); Vitamin D,25 Hydroxy 54.0 ng/mL (30-100); cholesterol:hdl ratio screen 2.30
== END | disposition home or self-care (01) ==
LOC: MTLAB 11:42
PROVIDERS: PCP Family Medicine; Referring Provider Nurse Practitioner Family; Visit Provider Nurse Practitioner Family
DX: I10 Essential (primary) hypertension (principal); E55.9 Vitamin D deficiency, unspecified; E78.5 Hyperlipidemia, unspecified
CPT/HCPCS: 36415; 80053; 80061; 82306; 85025

== ENCOUNTER → 2025-03-09 | Outpatient (CLI) | payer MEDICARE, SELFPAY ==
--- NOTE | 2025-03-09 12:43 | CT_ITS ---
PROCEDURE: CHEST WITH CONTRAST 03/09/2025 REASON FOR EXAM: ASSESS [facility] NODULES FOR CHANGE TECHNIQUE: Procedure Code: CTCHW Modality: CT Procedure: CHEST WITH CONTRAST Coronal and Sagittal reconstruction series were provided. CONTRAST: Isovue-300 VOLUME: 100 mL One or more dose reduction techniques were used (e.g., Automated exposure control, adjustment of the mA and/or kV according to patient size, use of iterative reconstruction technique). RADIATION DOSE SUMMARY: CTDlvol: 12.2 mGy DLP: 410 mGycm COMPARISON: 03/17/2024 FINDINGS: Hardware: None Lymph nodes: No lymphadenopathy. Heart and Vasculature: Coronary artery calcifications. No pericardial effusion or cardiomegaly. Normal-sized ascending and descending aorta. Lungs and Airways: The lungs are clear. No suspicious pulmonary nodule seen in the lung parenchyma. Patent airway. No focal consolidation. Pleura: No effusion or pneumothorax. Upper Abdomen: Small sliding hiatal hernia. Unremarkable appearance of the upper abdomen. Bones: Multilevel degenerative disc disease. No acute fracture or destructive process. CT/Chest WITH Contrast IMPRESSION: No suspicious pulmonary nodule. No acute cardiopulmonary process. Stable shotty lymph nodes in the mediastinum, likely reactive. Coronary artery calcifications. Reading Location: [id number]
--- NOTE | 2025-03-09 12:44 | CDU_ITS ---
Reason For Study Reason For Study: Bilateral ICA Stenosis Rt. Velocities/BP Lt. Velocities/BP Prox CCA 63.3/13.8 cm/sec. Prox CCA 91.6/16.7 cm/sec. Mid CCA 84.2/20.4 cm/sec. Mid CCA 67.0/14.2 cm/sec. Dist CCA 65.5/17.1 cm/sec. Dist CCA 60.9/17.9 cm/sec. Prox ICA 116.2/32.1 cm/sec. Prox ICA 177.8/50.8 cm/sec. Mid ICA 92.4/24.8 cm/sec. Mid ICA 140.2/28.6 cm/sec. Dist ICA 110.7/28.5 cm/sec. Dist ICA 66.6/23.7 cm/sec. Rt. ICA/CCA = 1.4. Lt. ICA/CCA = 2.7. Prox ECA 94.1/16.7 cm/sec. Prox ECA 83.1/16.0 cm/sec. Rt. Vert. 32.5/9.7 cm/sec. Lt. Vert. 42.4/13.8 cm/sec. Right Extracranial There is intimal thickening but no significant atherosclerotic plaque noted in the right common carotid artery. There is heterogeneous, irregular atherosclerotic plaque noted in the right internal carotid artery. There is heterogeneous, irregular atherosclerotic plaque noted in the right external carotid artery. Antegrade flow is noted in the right vertebral artery. Left Extracranial There is intimal thickening but no significant atherosclerotic plaque noted in the left common carotid artery. There is heterogeneous, irregular atherosclerotic plaque noted in the left internal carotid artery. There is intimal thickening but no significant atherosclerotic plaque noted in the left external carotid artery. Antegrade flow is noted in the left vertebral artery. Procedure Carotid Duplex 16453. This is a Carotid Duplex examination using B-mode, color flow and specral Doppler. The exam was diagnostic. Exam performed in department. VL/Carotid Duplex Ultrasound Interpretation Summary Mild (<50%) stenosis right extracranial internal carotid. Moderate (50-69%) stenosis left extracranial internal carotid. Patent and antegrade vertebrals bilaterally. Ordering Physician: Diane Weaver Referring Physician: Amor Narvaez Performed By: Dragan Laughlin RVT
--- OUTSIDE RECORDS SUMMARY | 2025-03-09 13:47 | XMS RPT_ITS | CCD ---
Author Organization [facility] Care Team Providers Care Bag Bundler Name Role Phone Mendez Varma Primary Care Provider Unavailabl e Randy, Dr. Bailey Attending Provider Mendez Varma Referring Provider Unavailable NELL Mccullough Attending Provider Dr. Amor Narvaez Primary Care Provider Dr. Óscar Gagnon Attending Provider Dr. Amor Narvaez Primary Care Provider Dr. Amor Narvaez Referring Provider Dr. Leo Padilla Attending Provider [phone] Dr. Leo Padilla Other Provider Diane Weaver Attending Unavailable Amor Narvaez Primary Care Unavailable Owen, Diane Referring Unavailable Amor Narvaez Primary Care Unavailable Owen, Diane Referring Unavailable Owen, Diane Attending Unavailable Owen, Diane Attending Unavailable Amor Narvaez Primary Care Unavailable Owen, Diane Referring Unavailable Amor Narvaez Referring Unavailable Amor Narvaez Primary Care Unavailable Leo Padilla Attending Unavailable Medications Current Medications Medication Drug Class(es) Dates Sig (Normalized) Sig (Original) [id number] 200 actuat albuterol 0.09 mg/actuat metered dose inhaler (3 sources) beta2-Adrenergic Agonist Start: 01-08-2023 take 1 puff(s) by inhalation every four hours as needed Albuterol Sulfate (Ventolin Hfa) 90 mcg/actuation HFA aerosol inhaler Active 1 - 2 PUFF INHALATION EVERY 4 HOURS NEEDED January 07, 2023 11:00pm aspirin 81 mg chewable tablet (7 sources) Platelet Aggregation Inhibitor, Nonsteroidal Anti-inflammatory Drug Start: 01-12-2018 take 81 mg by mouth once daily Aspirin Active 81 MG PO DAILY@0800 January 11, 2018 11:00pm atorvastatin 20 mg oral tablet (7 sources) HMG-CoA Reductase Inhibitor Start: 01-12-2018 take 20 mg by mouth at bedtime Atorvastatin Active 20 MG PO AT BEDTIME January 11, 2018 11:00pm folic acid 1 mg oral tablet (7 sources) Start: 01-12-2018 take 1 mg by mouth once daily Folic Acid Active 1 MG PO DAILY January 11, 2018 11:00pm lisinopril 10 mg oral tablet (7 sources) Angiotensin Converting Enzyme Inhibitor Start: 01-12-2018 take 10 mg by mouth once daily Lisinopril Active 10 MG PO DAILY January 11, 2018 11:00pm omeprazole 40 mg delayed release oral capsule (9 sources) Proton Pump Inhibitor Start: 06-11-2022 End: 08-31-2022 take 40 mg by mouth once daily in the morning Omeprazole Active 40 MG PO EVERY MORNING August 31, 2022 12:36pm predniSONE 20 mg oral tablet (3 sources) Start: 01-08-2023 take 40 mg by mouth once daily Prednisone Active 40 MG PO DAILY January 07, 2023 11:00pm Completed/Discontinued Medications Medication Drug Class(es) Dates Sig (Normalized) Sig (Original) acetaminophen 325 mg / oxyCODONE hydrochloride 5 mg oral tablet (7 sources) Opioid Agonist Start: 04-04-2020 End: 04-08-2020 Oxycodone-Acetamino phen Discontinued 1 - 2 EACH PO EVERY 6 HOURS 30 April 04, 2020 April 07, 2020 11:02pm apixaban 2.5 mg oral tablet (7 sources) Factor Xa Inhibitor Start: 04-04-2020 End: 04-18-2020 take 2.5 mg by mouth twice daily Apixaban Discontinued 2.5 MG PO TWICE A DAY April 03, 2020 11:00pm April 17, 2020 11:02pm cephalexin 500 mg oral capsule (4 sources) Cephalosporin Antibacterial Start: 06-30-2022 End: 07-10-2022 take 500 mg by mouth every twelve hours Cephalexin Discontinued 500 MG PO Q12H 20 June 30, 2022 12:00am July 10, 2022 12:03am ergocalciferol 1.25 mg oral capsule (7 sources) Provitamin D2 Compound Start: 04-04-2020 End: 06-12-2023 take 51833 [IU] by mouth every week Ergocalciferol (Vitamin D2) Discontinued 01540 UNIT PO Q7D April 03, 2020 11:00pm June 12, 2023 2:07pm ibuprofen 400 mg oral tablet (7 sources) Nonsteroidal Anti-inflammatory Drug Start: 01-11-2018 End: 01-12-2018 take 400 mg by mouth once daily Ibuprofen Discontinued 400 MG PO DAILY January 10, 2018 11:00pm January 12, 2018 10:53am sucralfate 1000 mg oral tablet (6 sources) Aluminum Complex Start: 06-11-2022 End: 06-12-2023 take 1 tablet by mouth four times daily Sucralfate (Carafate) 1 gram tablet Discontinued 1 GM PO 4 TIMES DAILY 60 June 11, 2022 12:00am June 12, 2023 2:08pm Problems Problem Classification Problem Date Documented Da te Episodic/Chronic Abdominal pain (6 sources) Abdominal pain; Translations: [Unspecified abdominal pain] 06-19-2022 Episodic Alcohol-related disorders (7 sources) Moderate alcohol dependence; Translations: [Alcohol dependence, uncomplicated] 02-09-2020 Chronic Cardiac dysrhythmias (3 sources) Tachycardia; Translations: [Tachycardia, unspecified] 01-08-2023 Episodic Disorders of lipid metabolism (1 source) Hyperlipidemia, unspecified; Translations: [Hyperlipidemia, unspecified] Onset: 02-23-2025 Chronic Esophageal disorders (16 sources) Obstruction of esophagus; Translations: [Esophageal obstruction] Chronic Essential hypertension (1 source) Essential (primary) hypertension; Translations: [Essential (primary) hypertension] Onset: 02-23-2025 Chronic Fracture of lower limb (7 sources) Fracture dislocation of ankle joint; Translations: [Other fracture of left lower leg, initial encounter for closed fracture] 04-02-2020 Episodic Gastritis and duodenitis (6 sources) Gastritis; Translations: [Gastritis, unspecified, without bleeding] 06-19-2022 Episodic Nutritional deficiencies (1 source) Vitamin D deficiency, unspecified; Translations: [Vitamin D deficiency, unspecified] Onset: 02-23-2025 Chronic Occlusion or stenosis of precerebral arteries (1 source) Occlusion and stenosis of bilateral carotid arteries; Translations: [Occlusion and stenosis of bilateral carotid arteries] Onset: 03-03-2025 Chronic Other injuries and conditions due to external causes (2 sources) Obstruction of esophagus; Translations: [Food in esophagus causing other injury, initial encounter] 06-12-2022 Episodic Other lower respiratory disease (3 sources) Dyspnea; Translations: [Dyspnea, unspecified] 01-08-2023 Episodic Other lower respiratory disease (2 sources) Other nonspecific abnormal finding of lung field; Translations: [Other nonspecific abnormal finding of lung field] Onset: 04-09-2024 Episodic Skin and subcutaneous tissue infections (5 sources) Cellulitis of leg, excluding foot; Translations: [Cellulitis of left lower limb] 06-30-2022 Episodic Transient cerebral ischemia (7 sources) Transient cerebral ischemia; Translations: [Transient cerebral ischemic attack, unspecified] 02-09-2020 Chronic Viral infection (3 sources) Acute viral disease; Translations: [Viral infection, unspecified] 01-08-2023 Episodic Results Test Name Value Interpretation Reference Range Facility CBC W/Diff, Automatedon 09-0 Absolute Lymph 1.39 X10 3/uL Normal 0.83-4.51 [facility] Comment on above: Performed By: #### L 100.0100, L500.4050, L500.4100, L506.1001 #### [facility] [address] [facility] [address] Absolute Neut 5.4 X10 3/uL Normal 2.0-7.7 [facility] Comment on above: Performed By: #### L 100.0100, L500.4050, L500.4100, L506.1001 #### [facility] [address] [place], [address] Basophils/100 WBC (Bld) 0.8 % Normal 0-1 [facility] Comment on above: Performed By: #### L 100.0100, L500.4050, L500.4100, L506.1001 #### [facility] [address] [place], [address] Eosinophils/100 WBC (Bld) 3.4 % Normal 0-5 [facility] Comment on above: Performed By: #### L 100.0100, L500.4050, L500.4100, L506.1001 #### [facility] [address] [place], [address] Erythrocyte distribution width (RBC) [Ratio] 13.4 % Normal 11.6-14.6 [facility] Comment on above: Performed By: #### L 100.0100, L500.4050, L500.4100, L506.1001 #### [facility] [address] [place], [address] Hematocrit (Bld) [Volume fraction] 36.2 % Low 37-47 [facility] Comment on above: Performed By: #### L 100.0100, L500.4050, L500.4100, L506.1001 #### [facility] [address] [place], [address] Hemoglobin (Bld) [Mass/Vol] 12.1 g/dL Normal 12.0-15.0 [facility] Comment on above: Performed By: #### L 100.0100, L500.4050, L500.4100, L506.1001 #### [facility] [address] [place], [address] IG% 0.300 Normal 0.0-0.9 [facility] Comment on above: Result Comment: IG% - Immature Granulocytes (promyelocytes, myelocytes and metamyelocytes) > 1% indicates that a LEFT SHIFT is Present. Performed By: #### L 100.0100, L500.4050, L500.4100, L506.1001 #### [facility] [address] [place], [address] Lymphocytes/100 WBC (Bld) 18.1 % Low 19-41 [facility] Comment on above: Performed By: #### L 100.0100, L500.4050, L500.4100, L506.1001 #### [facility] [address] [place], [address] MCH (RBC) [Entitic mass] 29.1 pg Normal 27.0-32.0 [facility] Comment on above: Performed By: #### L 100.0100, L500.4050, L500.4100, L506.1001 #### [facility] [address] [place], [address] MCHC (RBC) [Mass/Vol] 33.4 g/dL Normal 32-36 [facility] Comment on above: Performed By: #### L 100.0100, L500.4050, L500.4100, L506.1001 #### [facility] [address] [place], [address] MCV (RBC) [Entitic vol] 87.0 fL Normal 81-99 [facility] Comment on above: Performed By: #### L 100.0100, L500.4050, L500.4100, L506.1001 #### [facility] [address] [place], [address] Monocytes/100 WBC (Bld) 7.9 % Normal 0-10 [facility] Comment on above: Performed By: #### L 100.0100, L500.4050, L500.4100, L506.1001 #### [facility] [address] [place], [address] Neutrophils/100 WBC (Bld) 69.5 % Normal 47-70 [facility] Comment on above: Performed By: #### L 100.0100, L500.4050, L500.4100, L506.1001 #### [facility] [address] [place], [address] Nucleated RBC (Bld) [#/Vol] 0 10*3/uL Normal 0-5 [facility] Comment on above: Performed By: #### L 100.0100, L500.4050, L500.4100, L506.1001 #### [facility] [address] [place], [address] Platelet mean volume (Bld) [Entitic vol] 10.3 fL Normal 6.2-12.0 [facility] Comment on above: Performed By: #### L 100.0100, L500.4050, L500.4100, L506.1001 #### [facility] [address] [place], [address] Platelets (Bld) [#/Vol] 275 10*3/uL Normal 150-450 [facility] Comment on above: Performed By: #### L 100.0100, L500.4050, L500.4100, L506.1001 #### [facility] [address] [place], [address] RBC (Bld) [#/Vol] 4.16 10*6/uL Low 4.2-5.4 [facility] Comment on above: Performed By: #### L 100.0100, L500.4050, L500.4100, L506.1001 #### [facility] [address] [place], [address] RDW SD 42.4 fl Normal 35.1-43.9 [facility] Comment on above: Performed By: #### L 100.0100, L500.4050, L500.4100, L506.1001 #### [facility] [address] [place], [address] WBC (Bld) [#/Vol] 7.7 10*3/uL Normal 4.4-11.0 [facility] Comment on above: Performed By: #### L 100.0100, L500.4050, L500.4100, L506.1001 #### [facility] [address] [place], [address] Comprehensive Metabolic Prof ilon 02-23-2025 Albumin [Mass/Vol] 4.4 g/dL Normal 3.4-4.8 [facility] Comment on above: Performed By: #### L 100.0100, L500.4050, L500.4100, L506.1001 #### [facility] [address] [place], [address] Albumin/Globulin [Mass ratio] 1.5 {ratio} Normal 0.9-2.4 [facility] Comment on above: Performed By: #### L 100.0100, L500.4050, L500.4100, L506.1001 #### [facility] [address] [place], [address] ALK PHOS 136 U/L High 35-104 [facility] Comment on above: Performed By: #### L 100.0100, L500.4050, L500.4100, L506.1001 #### [facility] [address] [place], [address] ALT [Catalytic activity/Vol] 26 U/L Normal <=34 [facility] Comment on above: Performed By: #### L 100.0100, L500.4050, L500.4100, L506.1001 #### [facility] [address] [place], [address] AST [Catalytic activity/Vol] 24 U/L Normal <=31 [facility] Comment on above: Performed By: #### L 100.0100, L500.4050, L500.4100, L506.1001 #### [facility] [address] [place], [address] Bilirubin [Mass/Vol] 0.84 mg/dL Normal 0.00-1.30 [facility] Comment on above: Performed By: #### L 100.0100, L500.4050, L500.4100, L506.1001 #### [facility] [address] [place], [address] BUN/CRE 18.2 RATIO Normal 10-20 [facility] Comment on above: Performed By: #### L 100.0100, L500.4050, L500.4100, L506.1001 #### [facility] [address] [place], [address] Calcium [Mass/Vol] 9.5 mg/dL Normal 7.6-11.0 [facility] Comment on above: Performed By: #### L 100.0100, L500.4050, L500.4100, L506.1001 #### [facility] [address] [place], [address] Chloride [Moles/Vol] 101 mmol/L Normal 98-108 [facility] Comment on above: Performed By: #### L 100.0100, L500.4050, L500.4100, L506.1001 #### [facility] [address] [place], [address] CO2 [Moles/Vol] 20.5 mmol/L Low 21.0-32.0 [facility] Comment on above: Performed By: #### L 100.0100, L500.4050, L500.4100, L506.1001 #### [facility] [address] [place], [address] Creatinine [Mass/Vol] 0.71 mg/dL Normal 0.70-1.20 [facility] Comment on above: Performed By: #### L 100.0100, L500.4050, L500.4100, L506.1001 #### [facility] [address] [place], [address] GAP 14 Normal 5-15 [facility] Comment on above: Performed By: #### L 100.0100, L500.4050, L500.4100, L506.1001 #### [facility] [address] [place], [address] GFR/1.73 sq M.predicted among non-blacks MDRD (S/P/Bld) [Vol rate/Area] 90 mL/min/{1.73_m2} Normal >60 [facility] Comment on above: Result Comment: mL/m in/1.73m2 CKD-EPI Creatinine Equation (2020) Performed By: #### L 100.0100, L500.4050, L500.4100, L506.1001 #### [facility] [address] [place], [address] Globulin (S) [Mass/Vol] 3.0 g/dL Normal 2.2-4.2 [facility] Comment on above: Performed By: #### L 100.0100, L500.4050, L500.4100, L506.1001 #### [facility] [address] [place], [address] Glucose [Mass/Vol] 94 mg/dL Normal 70-99 [facility] Comment on above: Performed By: #### L 100.0100, L500.4050, L500.4100, L506.1001 #### [facility] [address] [place], [address] Potassium [Moles/Vol] 4.2 mmol/L Normal 3.3-5.1 [facility] Comment on above: Performed By: #### L 100.0100, L500.4050, L500.4100, L506.1001 #### [facility] [address] [place], [address] Sodium [Moles/Vol] 136 mmol/L Normal 133-145 [facility] Comment on above: Performed By: #### L 100.0100, L500.4050, L500.4100, L506.1001 #### [facility] [address] [place], [address] T PROT 7.4 g/dL Normal 5.9-8.4 [facility] Comment on above: Performed By: #### L 100.0100, L500.4050, L500.4100, L506.1001 #### [facility] [address] [place], [address] Urea nitrogen [Mass/Vol] 13 mg/dL Normal 4-19 [facility] Comment on above: Performed By: #### L 100.0100, L500.4050, L500.4100, L506.1001 #### [facility] [address] [place], [address] Lipid Profileon 02-23-2025 CHOL:HDL 2.30 Normal [facility] Comment on above: Performed By: #### L 100.0100, L500.4050, L500.4100, L506.1001 #### [facility] [address] [place], [address] Cholesterol [Mass/Vol] 161 mg/dL Normal <=200 [facility] Comment on above: Result Comment: Chol esterol level, Desirable <200 mg/dL Borderline high cholesterol 200-239 mg/dL High cholesterol >=240 mg/dL Recommendations of the NCEP Adult Treatment Panel for the following risk-cutoff thresholds for the [place] population. Performed By: #### L 100.0100, L500.4050, L500.4100, L506.1001 #### [facility] [address] [place], [address] Cholesterol in HDL [Mass/Vol] 70 mg/dL Normal [facility] Comment on above: Result Comment: Gely onal Cholesterol Education Program (NCEP) guidelines: <40 mg/dL: Low HDL-cholesterol (major risk factor for CHD) >= 60 mg/dL: High HDL-cholesterol (negative risk factor for CHD) HDL-cholesterol is affected by a number of factors, e.g. smoking, exercise, hormones, sex and age. Performed By: #### L 100.0100, L500.4050, L500.4100, L506.1001 #### [facility] [address] [place], [address] Cholesterol in LDL [Mass/Vol] 76 mg/dL Normal [facility] Comment on above: Result Comment: Bord bywsgw=430-503 mg/dL Higher Zmsi=870 mg/dL or greater Friedwald Equation for LDL-C Performed By: #### L 100.0100, L500.4050, L500.4100, L506.1001 #### [facility] [address] [place], [address] Cholesterol in VLDL [Mass/Vol] 15 mg/dL Normal 5-40 [facility] Comment on above: Performed By: #### L 100.0100, L500.4050, L500.4100, L506.1001 #### [facility] [address] [place], [address] Triglyceride [Mass/Vol] 75 mg/dL Normal [facility] Comment on above: Result Comment: The drugs N-Acetylcysteine and Metamizole may falsely depress this assay. Normal range: <150 mg/dL Borderline High: 150-199 mg/dL High: 200-499 mg/dL Very High: >500 mg/dL Performed By: #### L 100.0100, L500.4050, L500.4100, L506.1001 #### [facility] [address] [place], [address] Vitamin D,25 Hydroxyon 02-23 Vitamin D 25-OH 54.0 ng/mL Normal 30-100 [facility] Comment on above: Result Comment: Lisa min D Status Deficiency: <20 ng/mL (50nmol/L) Insufficiency: 20-30 ng/mL (50-75 nmol/L) Sufficiency: 30-100 ng/mL (75-250 nmol/L) Toxicity: >100 ng/mL (>250 nmol/L) Performed By: #### L 100.0100, L500.4050, L500.4100, L506.1001 #### [facility] [address] [place], [address] Gastroenterology Visit Repor ton 10-02-2024 Gastroenterology Visit Report [facility] [address] [place] [address] OFFICE VISIT Date of Service: 10/02/24 MR#: [id number] Acct: [id number] Name: HUNTER WALKER Rep #: [id number] : 1955 Provider: Leo Padilla DO Age/Sex: 69/F Location: [facility] Status: Signed Intake Vital Signs 06/19/23 10:50 Height 5 ft 4 in Intake Visit Reasons: 6 M FU Allergies No Known Allergies Allergy (Verified 06/19/23 10:47) Medications ???Medication ???Instructions ???Recorded ???Confirmed ???Type aspirin 81 mg chewable tablet 81 mg PO DAILY@0800 ##30 01/12/18 10/02/24 Rx atorvastatin 20 mg tablet 20 mg PO QHS #30 tabs 01/12/18 Rx folic acid 1 mg tablet 1 mg PO DAILY #30 tabs 01/12/18 Rx lisinopril 10 mg tablet 10 mg PO DAILY #30 tabs 01/12/18 0 10/02/24 Rx albuterol sulfate 90 mcg/actuation 1 - 2 puff inhalation Q4H PRN OR N 01/08/23 10/02/24 Rx aerosol inhaler (Ventolin HFA) Wheezing #1 inh multivitamin 1 tab PO DAILY 02/11/24 10/02/24 H istory omeprazole 40 mg capsule,delayed 40 mg PO QAM #90 caps 10/02/24 Rx release Have you fallen in the past year?: No [facility] Medical History (Updated 06/12/23 @ 14:17 by Mario Moreira) Wears glasses History of hiatal hernia Gastric reflux Former smoker HTN (hypertension) Alcohol use disorder, moderate, dependence TIA (transient ischemic attack) Social History Smoking Status: Former smoker alcohol intake: current alcohol intake frequency: holidays/special occasions only Alcohol type: beer and wine HPI HPI Details: HUNTER WALKER, is a 69 F who presents to the office today for follow up. *[facility] ED 06.11.22 for esophageal food impaction with failure of fluid challenge. ? EGD 06.12.22 removal of food; severe Schatzki ring, Savary 45F; irregular Zline; LA Grade C esophagitis; medium hiatal hernia. Metaplasia esophagus + OV 3. reporting dysphagia for the last 5 years which has resolved since EGD; denies symptoms of heartburn/reflux. Continue PPI. ? 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 Metaplasia not seen on pathology. Contact, 07.18.23 with results. OV 2 Pt well since last visit. Is not having any issues. Continues PPI. OV 8.24 pt reports that she is feeling well overall and denies GI symptoms of concern at this time. Continues omeprazole 40mg daily. OV 4..25 pt reports that she is feeling well overall and denies GI symptoms of concern at this time. Pt continues with Omeprazole 40mg daily. Exam Const General: cooperative and comfortable Nutritional Appearance: overweight Orientation: alert, awake and oriented x3 Assessment and Plan Assessment and Plan (1) Rudolph's esophagus: Status: Acute Plan: 67 yr old female with hx food stuck in esophagus due to severe Schatzki ring. found LA Grade C reflux esophagitis, bx positive for Rudolph's, negative for dysplasia. We discussed those findings, hiatal hernia, need to remain on omeprazole 40 mg QAM possibly indefinitely. 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 Amor Narvaez DO Status: REG CL Study: Chest WITH Contrast Date of Exam: 03/17/24 Exam# [id number] Ordering Dr: Diane Weaver WAITER/WAITRESS HEAD-C [id number] STUDY: CT CHEST WITH CONTRAST REASON FOR EXAM: Female, 69 years old. LUNG NODULES RADIATION DOSAGE (If Supplied By Facility): CTDIvol = ( 11.93 ) mGy, DLP = ( 456.32 ) mGycm TECHNIQUE: Transaxial imaging was performed following intravenous administration of IV 100mL Isovue-300. Multiplanar coronal and sagittal images were reformatted. Individualized dose optimization techniques were used for this CT. COMPARISON: Comparison is made with prior study February 15, 2023. FINDINGS: CHEST Stable scarring at the lung apices more prominent on the right side. Stable 6 mm nodule in the peripheral anterior aspect of the right lower lobe. 12 month follow-up is recommended. There is no demonstrated pleural abnormality. There are calcifications of the coronary arteries. Normal mediastinum. Normal hilar regions. Normal unenhanced pulmonary arteries. There is atherosclerotic calcification of the aortic arch. There are degenerative changes of the thoracic spine. There is no demonstrated abnormality of the visualized upper abdomen. CT/Chest WITH Contrast IMPRESSION: Stable examination. 12 month follow-up examination recommended. Electronically Signed: Ezekiel Jj MD at 12:40 EDT , CC: URIEL Weaver; Dr. Amor Narvaez DO Fish Roe Technician: Signed Normal [facility] Basophil percentageOrdered B y: Diane Weaver on 02-15-2023 Basophil percentage < 0.9 mg/dL 0.55-1.02 [facility] No Panel InformationOrdered By: Diane Weaver on 02-15-2023 Bedside Estimated GFR (eGFR) > 60.0000 mL/min >60 [facility] Absolute lymphocyte countOrd ered By: Jessica Lay on 01-08-2023 Lymphocytes Auto (Unsp spec) [#/Vol] 0.55 10*3/uL 0.83-4.51 [facility] Basophil percentageOrdered B y: Jessica Lay on 01-08-2023 Basophils/100 WBC (Bld) 0.5 % 0-1 [facility] [facility] Chlor[facility] [Moles/Vol] 103 mmol/L 98-107 [facility] Eosinophils/100 WBC (Bld) 3.3 % 0-5 [facility] Glucose [Mass/Vol] 145 mg/dL 74-106 [facility] Comment on above: Fasting Glucose resu lt greater than or equal to 126 mg/dL suggests DIABETES MELLITUS per A.D.A. criteria. Neutrophils (Bld) [#/Vol] 6.9 10*3/uL 2.0-7.7 [facility] Neutrophils/100 WBC (Bld) 81.2 % 47-70 [facility] Potassium [Moles/Vol] 3.6 mmol/L 3.5-5.1 [facility] Sodium [Moles/Vol] 132 mmol/L 136-145 [facility] WBC (Bld) [#/Vol] 8.5 10*3/uL 4.4-11.0 [facility] Blood erythrocytes count (nu mber/volume)Ordered By: Jessica Lay on 01-08-2023 RBC (Bld) [#/Vol] 4.07 10*6/uL 4.2-5.4 [facility] Blood hemoglobin measurement (mass/volume)Ordered By: Jessica Lay on 01-08-2023 Hemoglobin (Bld) [Mass/Vol] 12.0 g/dL 12.0-15.0 [facility] Blood lymphocytes/100 leukoc ytesOrdered By: Jessica Lay on 01-08-2023 Lymphocytes/100 WBC (Bld) 6.5 % 19-41 [facility] Blood manual differential co mment interpretation (narrative result)Ordered By: Jessica Lay on 01-08-2023 Manual differential comment Jason (Bld) [Interp] SCANNED [facility] Blood monocytes/100 leukocyt esOrdered By: Jessica Lay on 01-08-2023 Monocytes/100 WBC (Bld) 7.7 % 0-10 [facility] Blood platelet mean volumeOr dered By: Jessica Lay on 01-08-2023 Platelet mean volume (Bld) [Entitic vol] 9.8 fL 6.2-12.0 [facility] Determination of erythrocyte mean corpuscular volume (MCV)Ordered By: Jessica Lay on 01-08-2023 MCV (RBC) [Entitic vol] 89.4 fL 81-99 [facility] Hematocrit Auto (Bld) [Volum e fraction]Ordered By: Jessica Lay on 01-08-2023 Hematocrit (Bld) [Volume fraction] 36.4 % 37-47 [facility] Laboratory - Chemistry and C hemistry - challengeOrdered By: Jessica Lay on 01-08-2023 CO2 [Moles/Vol] 24.0 mmol/L 21.0-32.0 [facility] Magnesium [Mass/Vol] 2.2 mg/dL 1.6-2.6 [facility] Natriuretic peptide B (Bld) [Mass/Vol] 3.3 pg/mL 0-100 [facility] Urea nitrogen/Creatinine [Mass ratio] 15.2 mg/mg 10-20 [facility] Laboratory - Hematology and Cell countsOrdered By: Jessica Lay on 01-08-2023 Erythrocyte distribution width (RBC) [Entitic vol] 44.0 fL 35.1-43.9 [facility] Erythrocyte distribution width (RBC) [Ratio] 13.5 % 11.6-14.6 [facility] Immature granulocytes/100 WBC (Bld) 0.800 % 0.0-0.9 [facility] Comment on above: IG% - Immature Granu locytes (promyelocytes, myelocytes and metamyelocytes) > 1% indicates that a LEFT SHIFT is Present. MCH (RBC) [Entitic mass] 29.5 pg 27.0-32.0 [facility] Nucleated RBC/100 WBC (Bld) [Ratio] 0 % 0-5 [facility] MCHC Auto (RBC) [Mass/Vol]Or dered By: Jessica Lay on 01-08-2023 MCHC (RBC) [Mass/Vol] 33.0 g/dL 32-36 [facility] No Panel InformationOrdered By: Jessica Lay on 01-08-2023 Troponin I High Sensitivity 4 pg/mL 3.0-54.0 [facility] Comment on above: Please Note: New Florina t Units and Gender Specific Reference Ranges. For more information see Policy Stat Procedure [place] High Sensitivity Troponin (TNIH) and attachments. D-Dimer Quantitative (PE/DVT) 3.15 FEU/ug/m 0.27-0.49 [facility] Comment on above: D-Dimer ELEVATED (>0 .49): Additional studies and clinicalassessments are indicated to conclude diagnosis of:Deep Vein Thrombosis (DVT) or Pulmonary Embolism (PE)CRITICAL VALUE VERIFIED. CALLED TO CHANTEL CHARLES01/08/23 0911 Lillian Wylie.RESULTS READ BACK BY SAME . Estimated Creatinine Clearance Calc 49.70 ml/min [facility] Estimated GFR (MDRD) Amer 114 mL/min >60 [facility] Comment on above: GFR Calc Estimated GFR (MDRD) Non-Af Amer 94 mL/min >60 [facility] Comment on above: Non- GFR Calc Thyroid Stimulating Hormone (TSH) 3.13 uIU/mL 0.358-3.74 [facility] Platelets bldOrdered By: Shannon Lay on 01-08-2023 Platelets (Bld) [#/Vol] 277 10*3/uL 150-450 [facility] Serum or plasma calcium grant urement (mass/volume)Ordered By: Jessica Lay on 01-08-2023 Calcium [Mass/Vol] 9.3 mg/dL 8.5-10.1 [facility] Serum or plasma creatinine m easurement (mass/volume)Ordered By: Jessica Lay on 01-08-2023 Creatinine [Mass/Vol] 0.66 mg/dL 0.55-1.02 [facility] Comment on above: The validity of the calculated GFR & GFRAA in patients over 70 years has not been determined. Clinical correlation is essential. Serum or plasma urea nitroge n measurement (mass/volume)Ordered By: Jessica Lay on 01-08-2023 Urea nitrogen [Mass/Vol] 10 mg/dL 7-18 [facility] Thin prep Papanicolaou smear with manual screeningOrdered By: Jessica Lay on 01-08-2023 Thin prep Papanicolaou smear with manual screening 5 5-15 [facility] Absolute lymphocyte countOrd ered By: Dr. Banad on 06-11-2022 Lymphocytes Auto (Unsp spec) [#/Vol] 0.83 10*3/uL 0.83-4.51 [facility] Basophil percentageOrdered B y: Dr. Banda on 06-11-2022 Basophils/100 WBC (Bld) 0.4 % 0-1 [facility] Bilirubin [Mass/Vol] 0.80 mg/dL 0.20-1.00 [facility] Comment on above: For patients on eltr ombopag therapy, use of Dimension [place] TBIL is not recommended. Chloride [Moles/Vol] 109 mmol/L 98-107 [facility] Eosinophils/100 WBC (Bld) 1.2 % 0-5 [facility] Glucose [Mass/Vol] 136 mg/dL 74-106 [facility] Comment on above: Fasting Glucose resu lt greater than or equal to 126 mg/dL suggests DIABETES MELLITUS per A.D.A. criteria. Neutrophils (Bld) [#/Vol] 13.9 10*3/uL 2.0-7.7 [facility] Neutrophils/100 WBC (Bld) 88.8 % 47-70 [facility] Potassium [Moles/Vol] 3.7 mmol/L 3.5-5.1 [facility] Protein [Mass/Vol] 7.4 g/dL 6.4-8.2 [facility] Sodium [Moles/Vol] 141 mmol/L 136-145 [facility] WBC (Bld) [#/Vol] 15.7 10*3/uL 4.4-11.0 [facility] Blood erythrocytes count (nu mber/volume)Ordered By: Dr. Banda on 06-11-2022 RBC (Bld) [#/Vol] 4.31 10*6/uL 4.2-5.4 [facility] Blood hemoglobin measurement (mass/volume)Ordered By: Dr. Banda on 06-11-2022 Hemoglobin (Bld) [Mass/Vol] 12.9 g/dL 12.0-15.0 [facility] Blood lymphocytes/100 leukoc ytesOrdered By: Dr. Banda on 06-11-2022 Lymphocytes/100 WBC (Bld) 5.3 % 19-41 [facility] Blood monocytes/100 leukocyt esOrdered By: Dr. Banda on 06-11-2022 Monocytes/100 WBC (Bld) 3.9 % 0-10 [facility] Blood platelet mean volumeOr dered By: Dr. Banda on 06-11-2022 Platelet mean volume (Bld) [Entitic vol] 9.5 fL 6.2-12.0 [facility] Determination of erythrocyte mean corpuscular volume (MCV)Ordered By: Dr. Banda on 06-11-2022 MCV (RBC) [Entitic vol] 89.1 fL 81-99 [facility] Direct bilirubinOrdered By: Dr. Banda on 06-11-2022 Bilirubin.direct [Mass/Vol] 0.20 mg/dL 0.00-0.30 [facility] Hematocrit Auto (Bld) [Volum e fraction]Ordered By: Dr. Banda on 06-11-2022 Hematocrit (Bld) [Volume fraction] 38.4 % 37-47 [facility] Laboratory - Chemistry and C hemistry - challengeOrdered By: Dr. Banda on 06-11-2022 ALP [Catalytic activity/Vol] 133 U/L 45-117 [facility] ALT [Catalytic activity/Vol] 29 U/L 13-56 [facility] CO2 [Moles/Vol] 28.0 mmol/L 21.0-32.0 [facility] Globulin (S) [Mass/Vol] 3.6 g/dL 2.2-4.2 [facility] Lipase [Catalytic activity/Vol] 150 U/L 73-393 [facility] Urea nitrogen/Creatinine [Mass ratio] 23.1 mg/mg 10-20 [facility] Laboratory - Hematology and Cell countsOrdered By: Dr. Banda on 06-11-2022 Erythrocyte distribution width (RBC) [Entitic vol] 43.7 fL 35.1-43.9 [facility] Erythrocyte distribution width (RBC) [Ratio] 13.2 % 11.6-14.6 [facility] Immature granulocytes/100 WBC (Bld) 0.400 % 0.0-0.9 [facility] Comment on above: IG% - Immature Granu locytes (promyelocytes, myelocytes and metamyelocytes) > 1% indicates that a LEFT SHIFT is Present. MCH (RBC) [Entitic mass] 29.9 pg 27.0-32.0 [facility] Nucleated RBC/100 WBC (Bld) [Ratio] 0 % 0-5 [facility] MCHC Auto (RBC) [Mass/Vol]Or dered By: Dr. Banda on 06-11-2022 MCHC (RBC) [Mass/Vol] 33.6 g/dL 32-36 [facility] No Panel InformationOrdered By: Dr. Banda on 06-11-2022 Estimated Creatinine Clearance Calc 62.97 ml/min [facility] Estimated GFR (MDRD) Amer 88 mL/min >60 [facility] Comment on above: GFR Calc Estimated GFR (MDRD) Non-Af Amer 73 mL/min >60 [facility] Comment on above: Non- GFR Calc Platelets bldOrdered By: Dr. Banda on 06-11-2022 Platelets (Bld) [#/Vol] 264 10*3/uL 150-450 [facility] Serum or plasma albumin grant urement (mass/volume)Ordered By: Dr. Banda on 06-11-2022 Albumin [Mass/Vol] 3.8 g/dL 3.2-5.0 [facility] Serum or plasma calcium grant urement (mass/volume)Ordered By: Dr. Banda on 06-11-2022 Calcium [Mass/Vol] 9.0 mg/dL 8.5-10.1 [facility] Serum or plasma creatinine m easurement (mass/volume)Ordered By: Dr. Banda on 06-11-2022 Creatinine [Mass/Vol] 0.82 mg/dL 0.55-1.02 [facility] Comment on above: The validity of the calculated GFR & GFRAA in patients over 70 years has not been determined. Clinical correlation is essential. Serum or plasma urea nitroge n measurement (mass/volume)Ordered By: Dr. Banda on 06-11-2022 Urea nitrogen [Mass/Vol] 19 mg/dL 7-18 [facility] Thin prep Papanicolaou smear with manual screeningOrdered By: Dr. Banda on 06-11-2022 Thin prep Papanicolaou smear with manual screening 17 U/L 15-37 [facility] Thin prep Papanicolaou smear with manual screening 4 5-15 [facility] Absolute lymphocyte counton 2022 Lymphocytes Auto (Unsp spec) [#/Vol] 1.40 10*3/uL 0.83-4.51 [facility] Work Phone: Basophil percentageon 2021 Basophils/100 WBC (Bld) 1.0 % 0-1 [facility] Work Phone: Bilirubin [Mass/Vol] 1.30 mg/dL 0.20-1.00 [facility] Work Phone: Comment on above: For patients on eltr ombopag therapy, use of Dimension [place] TBIL is not recommended. Chloride [Moles/Vol] 104 mmol/L 98-107 [facility] Work Phone: Cholesterol [Mass/Vol] 136 mg/dL <200 [facility] Work Phone: Comment on above: <200 mg/dL Desirable 200-240 mg/dL Borderline >240 mg/dL High Risk Eosinophils/100 WBC (Bld) 6.9 % 0-5 [facility] Work Phone: Glucose [Mass/Vol] 95 mg/dL 74-106 [facility] Work Phone: Neutrophils (Bld) [#/Vol] 3.7 10*3/uL 2.0-7.7 [facility] Work Phone: Neutrophils/100 WBC (Bld) 60.6 % 47-70 [facility] Work Phone: Potassium [Moles/Vol] 3.8 mmol/L 3.5-5.1 [facility] Work Phone: [phone] Protein [Mass/Vol] 7.3 g/dL 6.4-8.2 [facility] Work Phone: Sodium [Moles/Vol] 136 mmol/L 136-145 [facility] Work Phone: Triglyceride [Mass/Vol] 43 mg/dL <199 [facility] Work Phone: Comment on above: The drugs N-Acetylcy steine and Metamizole may falsely depress this assay.Serum Triglycerides Reference Interval Normal <150 mg/dL Borderline high 150 - 199 mg/dL High 200 - 499 mg/dL Very High > or = 500 mg/dL WBC (Bld) [#/Vol] 6.1 10*3/uL 4.4-11.0 [facility] Work Phone: Blood erythrocytes count (nu mber/volume)on 2022 RBC (Bld) [#/Vol] 3.99 10*6/uL 4.2-5.4 [facility] Work Phone: Blood hemoglobin measurement (mass/volume)on 2022 Hemoglobin (Bld) [Mass/Vol] 12.1 g/dL 12.0-15.0 [facility] Work Phone: [phone] Blood lymphocytes/100 leukoc yteson 2022 Lymphocytes/100 WBC (Bld) 23.1 % 19-41 [facility] Work Phone: [phone] Blood monocytes/100 leukocyt eson 2022 Monocytes/100 WBC (Bld) 8.2 % 0-10 [facility] Work Phone: [phone] Blood platelet mean volumeon 2022 Platelet mean volume (Bld) [Entitic vol] 10.2 fL 6.2-12.0 [facility] Work Phone: [phone] Determination of erythrocyte mean corpuscular volume (MCV)on 2022 MCV (RBC) [Entitic vol] 91.0 fL 81-99 [facility] Work Phone: Hematocrit Auto (Bld) [Volum e fraction]on 2022 Hematocrit (Bld) [Volume fraction] 36.3 % 37-47 [facility] Work Phone: Laboratory - Chemistry and C hemistry - challengeon 2022 ALP [Catalytic activity/Vol] 120 U/L 45-117 [facility] Work Phone: [phone] ALT [Catalytic activity/Vol] 30 U/L 13-56 [facility] Work Phone: [phone] CO2 [Moles/Vol] 29.0 mmol/L 21.0-32.0 [facility] Work Phone: [phone] Globulin (S) [Mass/Vol] 3.6 g/dL 2.2-4.2 [facility] Work Phone: Urea nitrogen/Creatinine [Mass ratio] 22.5 mg/mg 10-20 [facility] Work Phone: Laboratory - Hematology and Cell countson 2022 Erythrocyte distribution width (RBC) [Entitic vol] 44.5 fL 35.1-43.9 [facility] Work Phone: [phone] Erythrocyte distribution width (RBC) [Ratio] 13.3 % 11.6-14.6 [facility] Work Phone: [phone] Immature granulocytes/100 WBC (Bld) 0.200 % 0.0-0.9 [facility] Work Phone: [phone] Comment on above: IG% - Immature Granu locytes (promyelocytes, myelocytes and metamyelocytes) > 1% indicates that a LEFT SHIFT is Present. MCH (RBC) [Entitic mass] 30.3 pg 27.0-32.0 [facility] Work Phone: [phone] Nucleated RBC/100 WBC (Bld) [Ratio] 0 % 0-5 [facility] Work Phone: [phone] MCHC Auto (RBC) [Mass/Vol]on 2022 MCHC (RBC) [Mass/Vol] 33.3 g/dL 32-36 [facility] Work Phone: [phone] No Panel Informationon 01-27 Estimated GFR (MDRD) Amer 113 mL/min >60 [facility] Work Phone: [phone] Comment on above: GFR Calc Estimated GFR (MDRD) Non-Af Amer 93 mL/min >60 [facility] Work Phone: [phone] Comment on above: Non- GFR Calc Platelets bldon 2022 Platelets (Bld) [#/Vol] 259 10*3/uL 150-450 [facility] Work Phone: [phone] Serum or plasma albumin grant urement (mass/volume)on 2022 Albumin [Mass/Vol] 3.7 g/dL 3.2-5.0 [facility] Work Phone: [phone] Serum or plasma albumin/glob ulin mass ratioon 2022 Albumin/Globulin [Mass ratio] 1.0 {ratio} 0.9-2.4 [facility] Work Phone: Serum or plasma calcium grant urement (mass/volume)on 2022 Calcium [Mass/Vol] 8.9 mg/dL 8.5-10.1 [facility] Work Phone: Serum or plasma cholesterol in HDL measurement (mass/volume)on 2022 Cholesterol in HDL [Mass/Vol] 69 mg/dL >40 [facility] Work Phone: Comment on above: The drugs N-Acetylcy steine and Metamizole may falsely depress this assay. Reference Range HDL <40 mg/dL Low HDL Cholesterol HDL >or= 60 mg/dL High HDL Cholesterol Serum or plasma cholesterol in VLDL measurement (mass/volume)on 2022 Cholesterol in VLDL [Mass/Vol] 9 mg/dL 5-40 [facility] Work Phone: [phone] Serum or plasma creatinine m easurement (mass/volume)on 2022 Creatinine [Mass/Vol] 0.67 mg/dL 0.55-1.02 [facility] Work Phone: Comment on above: The validity of the calculated GFR & GFRAA in patients over 70 years has not been determined. Clinical correlation is essential. Serum or plasma low density lipoprotein (LDL) cholesterol measurement (mass/volume)on 2022 Cholesterol in LDL [Mass/Vol] 58 mg/dL 0-130 [facility] Work Phone: [phone] Serum or plasma urea nitroge n measurement (mass/volume)on 2022 Urea nitrogen [Mass/Vol] 15 mg/dL 7-18 [facility] Work Phone: [phone] Thin prep Papanicolaou smear with manual screeningon 2022 Thin prep Papanicolaou smear with manual screening 19 U/L 15-37 [facility] Work Phone: [phone] Thin prep Papanicolaou smear with manual screening 3 5-15 [facility] Work Phone: [phone] Vital Signs Date Time Vital Sign Value Performing Clinician Faci lity 06-19-2023 12:10-0500 Body temperature 96.9 [degF] Dr. Amor Narvaez Work Phone: [facility] 06-19-2023 12:10-0500 Diastolic blood pressure 76 mm[Hg] Dr. Amor Narvaez Work Phone: [facility] 06-19-2023 12:10-0500 Heart rate 81 /min Dr. Amor Narvaez Work Phone: [facility] 06-19-2023 12:10-0500 Respiratory rate 16 /min Dr. Amor Narvaez Work Phone: [facility] 06-19-2023 12:10-0500 SaO2% (BldA) [Mass fraction] 98 % Dr. Amor Narvaez Work Phone: [facility] 06-19-2023 12:10-0500 Systolic blood pressure 106 mm[Hg] Dr. Amor Narvaez Work Phone: [facility] 06-19-2023 10:50-0500 Body height 162.[address] Amor Narvaez Work Phone: [facility] 06-19-2023 10:50-0500 Body mass index (BMI) [Ratio] 30.2 kg/m2 Dr. Amor Narvaez Work Phone: [facility] 06-19-2023 10:50-0500 Body weight [address] Amor Narvaez Work Phone: [facility] 01-08-2023 12:25-0400 Diastolic blood pressure 82 mm[Hg] [facility] 01-08-2023 12:25-0400 Heart rate 78 /min [facility] 01-08-2023 12:25-0400 Respiratory rate 18 /min [facility] 01-08-2023 12:25-0400 Systolic blood pressure 151 mm[Hg] [facility] 01-08-2023 10:00-0400 SaO2% (BldA) [Mass fraction] 95 % [facility] 01-08-2023 07:45-0400 Body height 167.64 cm [facility] 01-08-2023 07:45-0400 Body mass index (BMI) [Ratio] 28.5 kg/m2 [facility] 01-08-2023 07:45-0400 Body temperature 97.1 [degF] [facility] 01-08-2023 07:45-0400 Body weight 80.28 kg [facility] 06-30-2022 16:43-0500 Body height 167.64 cm [facility] 06-30-2022 16:43-0500 Body mass index (BMI) [Ratio] 28.4 kg/m2 [facility] 06-30-2022 16:43-0500 Body temperature 98 [degF] [facility] 06-30-2022 16:43-0500 Body weight 79.83 kg [facility] 06-30-2022 16:43-0500 Diastolic blood pressure 90 mm[Hg] [facility] 06-30-2022 16:43-0500 Heart rate 88 /min [facility] 06-30-2022 16:43-0500 Respiratory rate 16 /min [facility] 06-30-2022 16:43-0500 SaO2% (BldA) [Mass fraction] 98 % [facility] 06-30-2022 16:43-0500 Systolic blood pressure 146 mm[Hg] [facility] 06-12-2022 14:46-0500 Body temperature 97.2 [degF] [facility] 06-12-2022 14:46-0500 Diastolic blood pressure 74 mm[Hg] [facility] 06-12-2022 14:46-0500 Heart rate 94 /min [facility] 06-12-2022 14:46-0500 Respiratory rate 18 /min [facility] 06-12-2022 14:46-0500 SaO2% (BldA) [Mass fraction] 100 % [facility] 06-12-2022 14:46-0500 Systolic blood pressure 167 mm[Hg] [facility] 06-12-2022 13:12-0500 Body temperature 97.9 [degF] [facility] Work Phone: 06-12-2022 13:12-0500 Diastolic blood pressure 74 mm[Hg] [facility] Work Phone: 06-12-2022 13:12-0500 Heart rate 64 /min [facility] Work Phone: 06-12-2022 13:12-0500 Respiratory rate 14 /min [facility] Work Phone: 06-12-2022 13:12-0500 Systolic blood pressure 110 mm[Hg] [facility] Work Phone: 06-12-2022 12:00-0500 SaO2% (BldA) [Mass fraction] 95 % [facility] Work Phone: 06-12-2022 08:12-0500 Body height 170.18 cm [facility] Work Phone: 06-12-2022 08:12-0500 Body mass index (BMI) [Ratio] 27.3 kg/m2 [facility] 06-12-2022 08:12-0500 Body weight 79.37 kg [facility] 06-11-2022 21:51-0500 Diastolic blood pressure 79 mm[Hg] [facility] 06-11-2022 21:51-0500 Heart rate 77 /min [facility] 06-11-2022 21:51-0500 Respiratory rate 16 /min [facility] 06-11-2022 21:51-0500 SaO2% (BldA) [Mass fraction] 98 % [facility] 06-11-2022 21:51-0500 Systolic blood pressure 175 mm[Hg] [facility] 06-11-2022 19:07-0500 Body mass index (BMI) [Ratio] 27.7 kg/m2 [facility] 12-25-2022 19:07-0500 Body temperature 97.2 [degF] [facility] 06-11-2022 19:07-0500 Body weight 80.28 kg [facility] 01-25-2022 07:34-0400 Body height 170.18 cm [facility] Work Phone: Encounters Encounter Date Encounter Type Care Provider Facility Start: 03-09-2025 ambulatory [facility] Facility: [facility] Start: 02-23-2025 ambulatory [facility] Facility:[facility] Start: 10-02-2024 End: 10-02-2024 ambulatory [facility] Facility:[facility] Start: 03-17-2024 End: 03-17-2024 ambulatory [facility] Facility:[facility] Start: 06-19-2023 Non-patient / Non-visit Dr. Kaylee Narvaez Work Phone: [facility] Start: 06-19-2023 End: 06-19-2023 Admission to same day surgery center Dr. Amor Narvaez Work Phone: [facility] Work Phone: Start: 06-19-2023 End: 06-19-[address] Amor Narvaez Work Phone: [facility] Work Phone: Start: 02-15-2023 End: 02-15-2023 ambulatory [facility] Work Phone: Start: 02-15-2023 End: 02-15-2023 Patient encounter procedure [facility]-Cat Scan, [facility] Work Phone: Start: 01-08-2023 End: 01-08-2023 Emergency department patient visit [facility] Work Phone: Start: 07-07-2022 Non-patient / Non-visit [facility] Start: 07-07-2022 End: 07-07-2022 ambulatory [facility] Work Phone: Start: 07-07-2022 End: 07-07-2022 Patient encounter procedure [facility] Start: 06-30-2022 End: 06-30-2022 Patient encounter procedure [facility] Start: 06-12-2022 End: 06-12-2022 Admission to same day surgery center [facility] Start: 06-12-2022 End: 06-12-2022 ambulatory [facility] Work Phone: Start: 06-12-2022 Non-patient / Non-visit [facility] Start: 06-12-2022 End: 06-12-2022 Emergency department patient visit [facility] Start: 06-11-2022 End: 06-11-2022 Emergency department patient visit [facility] Start: 03-13-2022 End: 03-13-2022 ambulatory [facility] Work Phone: Start: 03-13-2022 End: 03-13-2022 Patient encounter procedure [facility] Start: 2022 End: 2022 Patient encounter procedure [facility]Laboratory, [place] Procedures Date Procedure Procedure Detail Performing Clinician Start: 06-19-[address] Amor thomas Work Phone: Start: 02-15-2023 CT of thorax with contrast Start: 01-08-2023 Plain chest X-ray Start: 01-08-2023 CT angiography of chest with contrast Start: 06-12-2022 Esophagogastroduodenoscopy [facility] Pereznan Start: 06-11-2022 US scan of gallbladder Plan of Treatment Date Care Activity Detail Author Start: 06-19-2023 Patient discharge [facility] Start: 01-08-2023 Inhalation therapy procedure [facility] Start: 01-08-2023 [facility] Start: 06-12-2022 Egd flexible foreign body removal EGD REMOVE FOREIGN BODY [facility] Start: 06-12-2022 Egd insert guide wire dilator passage esophagus EGD GUIDE WIRE INSERTION [facility] Start: 06-12-2022 Egd transoral biopsy single/multiple EGD BIOPSY SINGLE/MULTIPLE [facility] Start: 06-12-2022 Egd transoral control bleeding any method EGD CONTROL BLEEDING ANY [facility] Start: 06-12-2022 Esophagogastroduodenoscopy EGD (MAC) (Not Applicable) [facility] Work Phone: Start: 06-12-2022 Patient discharge [facility] Patient Education [facility] [place] Work Phone: Patient referral [facility] Work Phone: Payers Date Payer Category Payer Self-pay [id number] 2024 Medicare [id number] 2013 Unknown [employer] [id number] Medicaid MEDICAID [id number] Medicare MEDICARE PART A B [id number] Unknown [id number] Unknown [id number] Unknown [id number] Unknown [id number] Social History Date Type Detail Facility Start: 04-02-2020 End: 06-12-2023 Tobacco smoking status NHIS Unknown if ever smoked [facility] Start: 04-02-2020 Occasional [facility] Start: 04-02-2020 None [facility] Start: 04-02-2020 Alone [facility] Start: 1955 Sex Assigned At Female [facility] NEGATED: Highlighted row [facility] Medical Equipment Procedure Code Equipment Code Equipment Origin al Text Equipment Identifier Dates ORIF, ankle 2.7mm locking screw FDA Star t: 04-03-2020 ORIF, ankle 3.5mm locking screw FDA Star t: 04-03-2020 ORIF, ankle 4mm cannulated l natalee thread scr FDA Start: 04-03-2020 ORIF, ankle 4mm cannulated l natalee thread scr FDA Start: 04-03-2020 ORIF, ankle TIGHTROPE, XP FDA Start: 04-03-2020 ORIF, ankle locking distal fibula plates, FDA Start: 04-03-2020 ORIF, ankle 2.7mm locking screw FDA Star t: 04-03-2020 ORIF, ankle 2.7mm locking screw FDA Star t: 04-03-2020 ORIF, ankle 2.7mm locking screw FDA Star t: 04-03-2020 ORIF, ankle 2.7mm locking screw FDA Star t: 04-03-2020 ORIF, ankle 3.5mm locking screw FDA Star t: 04-03-2020 ORIF, ankle 3.5mm locking screw FDA Star t: 04-03-2020 ORIF, ankle 3.5mm locking screw FDA Star t: 04-03-2020 ORIF, ankle 3.5mm locking screw FDA Star t: 04-03-2020 ORIF, ankle 2.7mm locking screw FDA Star t: 04-03-2020 ORIF, ankle 3.5mm locking screw FDA Star t: 04-03-2020 ORIF, ankle 4mm cannulated l natalee thread scr FDA Start: 04-03-2020 ORIF, ankle 4mm cannulated l natalee thread scr FDA Start: 04-03-2020 ORIF, ankle TIGHTROPE, XP FDA Start: 04-03-2020 ORIF, ankle locking distal fibula plates, FDA Start: 04-03-2020 ORIF, ankle 2.7mm locking screw FDA Star t: 04-03-2020 ORIF, ankle 2.7mm locking screw FDA Star t: 04-03-2020 ORIF, ankle 2.7mm locking screw FDA Star t: 04-03-2020 ORIF, ankle 2.7mm locking screw FDA Star t: 04-03-2020 ORIF, ankle 3.5mm locking screw FDA Star t: 04-03-2020 ORIF, ankle 3.5mm locking screw FDA Star t: 04-03-2020 ORIF, ankle 3.5mm locking screw FDA Star t: 04-03-2020 ORIF, ankle 3.5mm locking screw FDA Star t: 04-03-2020 ORIF, ankle 2.7mm locking screw FDA Star t: 04-03-2020 ORIF, ankle 3.5mm locking screw FDA Star t: 04-03-2020 ORIF, ankle 4mm cannulated l natalee thread scr FDA Start: 04-03-2020 ORIF, ankle 4mm cannulated l natalee thread scr FDA Start: 04-03-2020 ORIF, ankle TIGHTROPE, XP FDA Start: 04-03-2020 ORIF, ankle locking distal fibula plates, FDA Start: 04-03-2020 ORIF, ankle 2.7mm locking screw FDA Star t: 04-03-2020 ORIF, ankle 2.7mm locking screw FDA Star t: 04-03-2020 ORIF, ankle 2.7mm locking screw FDA Star t: 04-03-2020 ORIF, ankle 2.7mm locking screw FDA Star t: 04-03-2020 ORIF, ankle 3.5mm locking screw FDA Star t: 04-03-2020 ORIF, ankle 3.5mm locking screw FDA Star t: 04-03-2020 ORIF, ankle 3.5mm locking screw FDA Star t: 04-03-2020 ORIF, ankle 3.5mm locking screw FDA Star t: 04-03-2020 ORIF, ankle 2.7mm locking screw FDA Star t: 04-03-2020 ORIF, ankle 3.5mm locking screw FDA Star t: 04-03-2020 ORIF, ankle 4mm cannulated l natalee thread scr FDA Start: 04-03-2020 ORIF, ankle 4mm cannulated l natalee thread scr FDA Start: 04-03-2020 ORIF, ankle TIGHTROPE, XP FDA Start: 04-03-2020 ORIF, ankle locking distal fibula plates, FDA Start: 04-03-2020 ORIF, ankle 2.7mm locking screw FDA Star t: 04-03-2020 ORIF, ankle 2.7mm locking screw FDA Star t: 04-03-2020 ORIF, ankle 2.7mm locking screw FDA Star t: 04-03-2020 ORIF, ankle 2.7mm locking screw FDA Star t: 04-03-2020 ORIF, ankle 3.5mm locking screw FDA Star t: 04-03-2020 ORIF, ankle 3.5mm locking screw FDA Star t: 04-03-2020 ORIF, ankle 3.5mm locking screw FDA Star t: 04-03-2020 ORIF, ankle 3.5mm locking screw FDA Star t: 04-03-2020 ORIF, ankle 2.7mm locking screw FDA Star t: 04-03-2020 ORIF, ankle 3.5mm locking screw FDA Star t: 04-03-2020 ORIF, ankle 4mm cannulated l natalee thread scr FDA Start: 04-03-2020 ORIF, ankle 4mm cannulated l natalee thread scr FDA Start: 04-03-2020 ORIF, ankle TIGHTROPE, XP FDA Start: 04-03-2020 ORIF, ankle locking distal fibula plates, FDA Start: 04-03-2020 ORIF, ankle 2.7mm locking screw FDA Star t: 04-03-2020 ORIF, ankle 2.7mm locking screw FDA Star t: 04-03-2020 ORIF, ankle 2.7mm locking screw FDA Star t: 04-03-2020 ORIF, ankle 2.7mm locking screw FDA Star t: 04-03-2020 ORIF, ankle 3.5mm locking screw FDA Star t: 04-03-2020 ORIF, ankle 3.5mm locking screw FDA Star t: 04-03-2020 ORIF, ankle 3.5mm locking screw FDA Star t: 04-03-2020 ORIF, ankle 3.5mm locking screw FDA Star t: 04-03-2020 ORIF, ankle 2.7mm locking screw FDA Star t: 04-03-2020 ORIF, ankle 3.5mm locking screw FDA Star t: 04-03-2020 ORIF, ankle 4mm cannulated l natalee thread scr FDA Start: 04-03-2020 ORIF, ankle 4mm cannulated l natalee thread scr FDA Start: 04-03-2020 ORIF, ankle TIGHTROPE, XP FDA Start: 04-03-2020 ORIF, ankle locking distal fibula plates, FDA Start: 04-03-2020 ORIF, ankle 2.7mm locking screw FDA Star t: 04-03-2020 ORIF, ankle 2.7mm locking screw FDA Star t: 04-03-2020 ORIF, ankle 2.7mm locking screw FDA Star t: 04-03-2020 ORIF, ankle 2.7mm locking screw FDA Star t: 04-03-2020 ORIF, ankle 3.5mm locking screw FDA Star t: 04-03-2020 ORIF, ankle 3.5mm locking screw FDA Star t: 04-03-2020 ORIF, ankle 3.5mm locking screw FDA Star t: 04-03-2020 ORIF, ankle 3.5mm locking screw FDA Star t: 04-03-2020 ORIF, ankle 2.7mm locking screw FDA Star t: 04-03-2020 ORIF, ankle 3.5mm locking screw FDA Star t: 04-03-2020 ORIF, ankle 4mm cannulated l natalee thread scr FDA Start: 04-03-2020 ORIF, ankle 4mm cannulated l natalee thread scr FDA Start: 04-03-2020 ORIF, ankle TIGHTROPE, XP FDA Start: 04-03-2020 ORIF, ankle locking distal fibula plates, FDA Start: 04-03-2020 ORIF, ankle 2.7mm locking screw FDA Star t: 04-03-2020 ORIF, ankle 2.7mm locking screw FDA Star t: 04-03-2020 ORIF, ankle 2.7mm locking screw FDA Star t: 04-03-2020 ORIF, ankle 2.7mm locking screw FDA Star t: 04-03-2020 ORIF, ankle 3.5mm locking screw FDA Star t: 04-03-2020 ORIF, ankle 3.5mm locking screw FDA Star t: 04-03-2020 ORIF, ankle 3.5mm locking screw FDA Star t: 04-03-2020 ORIF, ankle 3.5mm locking screw FDA Star t: 04-03-2020 Goals Date Patient Goal Desired Activity /State Mental Status Date Assessment Result Facility 06-19-2023 Cognitive function Voice/Name;Touch/Fidel portillo [facility] Work Phone: 06-12-2022 Cognitive function Awake;Alert;Appropriat e [facility] Work Phone: Procedure note 06-19-2023 Note Date & Type Note Facility 06-19-2023 Procedure note [facility] Procedure note 06-19-2023 Note Date & Type Note Facility 06-19-2023 Procedure note [facility] Discharge summary 01-08-2023 Note Date & Type Note Facility 01-08-2023 Discharge summary Note Date/Time January 08, 2023 8:33am [facility] Medical Records Department [address] [place] [address] Emergency Department Summary 01/08/23 MR#: [id number] Acct: [id number] Name: HUNTER WALKER Rep #:[id number] : 1955 67 From: Jessica Aguilera PCP: Dr. Amor Narvaez, DO Status:REG ER Location: ED HPI History of Present Illness Chief Complaint: Shortness of Breath Informant: patient Narrative Narrative: Patient is a 67-year-old female with history of TIA, hypertension, Rudolph's esophagus, hyperlipidemia and esophageal impaction presenting with shortness of breath. Patient states she woke up this morning to take a shower and felt she could not breathe. She states she has been feeling well all weekend (it is now Sunday) and that she just been feeling washed out. She has had a mild nonproductive cough. She states her symptoms are worse with exertion. States over the weekend she had chills and a subjective "low-grade fever". She denies any pain in her chest, abdomen or anywhere else. Denies any swelling of her legs. Denies any recent travel. Does not think she is ever felt any like this before. Has remote history of tobacco use but stopped smoking 20 years ago. [facility] Medical History Alcohol use disorder, moderate, dependence HTN (hypertension) TIA (transient ischemic attack) Home Medications aspirin 81 mg chewable tablet 81 mg PO DAILY@0800 ##30 01/12/18 [Rx Last Taken Unknown] atorvastatin 20 mg tablet 20 mg PO QHS #30 tabs 01/12/18 [Rx Last Taken Unknown] folic acid 1 mg tablet 1 mg PO DAILY #30 tabs 01/12/18 [Rx Last Taken Unknown] lisinopril 10 mg tablet 10 mg PO DAILY #30 tabs 01/12/18 [Rx Last Taken Unknown] ergocalciferol (vitamin D2) 1,250 mcg (50,000 unit) capsule 50,000 unit PO Q7D #8 caps 04/04/20 [Rx Last Taken Unknown] sucralfate 1 gram tablet (Carafate) 1 g PO 4X/DAY #60 tabs 06/11/22 [Rx Last Taken Unknown] omeprazole 40 mg capsule,delayed release 40 mg PO QAM #90 caps 08/31/22 [Rx Last Taken Unknown] albuterol sulfate 90 mcg/actuation aerosol inhaler (Ventolin HFA) 1 - 2 puff inhalation Q4H PRN PRN Wheezing #1 inh 01/08/23 [Rx Last Taken Unknown] prednisone 20 mg tablet 40 mg (2 x 20 mg) PO DAILY #10 tabs 01/08/23 [Rx Last Taken Unknown] Allergy/AdvReac Type Severity Reaction Status Date / Time No Known Allergies Allergy Verified 08/31/22 13:23 Social History Smoking Status: Former smoker alcohol intake: current alcohol intake frequency: holidays/special occasions only Alcohol type: beer and wine ROS ROS ED Constitutional Constitutional ED: Reports chills and fever(s) Eyes Eyes: Denies change in vision ENT ENT ED: Denies sore throat Cardiovascular Cardiovascular: Denies chest pain or palpitations Respiratory/Chest Respiratory/Chest: Reports cough, dyspnea and dyspnea on exertion Gastrointestinal Gastrointestinal: Denies abdominal pain, diarrhea, nausea or vomiting Genitourinary Genitourinary ED: Denies dysuria Musculoskeletal Musculoskeletal: Denies arthralgias or myalgias Integumentary Denies rash Neurologic Neurologic: Reports weakness; Denies headache(s) Psychiatric Psychiatric: Denies anxiety Hematologic/Lymphatic Hematologic/Lymphatic: Denies easy bleeding or easy bruising EXAM Physical Exam Const Vital Signs: 01/08/23 07:45 01/08/23 07:44 01/08/23 08:25 Temperature 97.1 F L Temperature Source Temporal Pulse Rate 123 H Respiratory Rate 20 H Respiratory Effort Short of Breath Respiratory Depth Shallow Respiratory Pattern Irregular Blood Pressure 167/92 H Blood Pressure Mean 117 Pulse Ox 99 Oxygen Delivery Method Room Air Room Air Room Air 01/08/23 08:44 01/08/23 10:00 01/08/23 11:51 Temperature Temperature Source Pulse Rate 78 104 H 107 H Respiratory Rate 14 21 H 18 Respiratory Effort Respiratory Depth Respiratory Pattern Normal Blood Pressure 134/76 H 151/85 H Blood Pressure Mean 95 107 Pulse Ox 98 95 Oxygen Delivery Method Room Air Positive well nourished and well developed General Appearance ED: well developed and NAD HEENT Reports moist mucous membranes atraumatic Eyes PERRL and EOMs intact bilaterally Neck supple and no JVD Resp normal respiratory effort and clear to auscultation bilaterally Cardio regular rhythm and no murmurs Cardio Narrative: 2+ radial and PT pulses Rate: tachycardic GI non-tender and non-distended Extremity normal to inspection General Extremety ED: Negative for edema or tenderness General Extremity: Negative for edema Neuro oriented x3 Sensorium / Orientation: alert; Negative for confused Motor Exam: Negative for general weakness Psych mental status grossly normal Skin no wounds Rashes: no rashes MDM MDM MDM Narrative Medical decision making narrative: Patient is evaluated for shortness of breath. States she has maybe had some viral prodrome this week and with a mild cough and just not feeling well. She had chills and subjective fever. Factious work-up largely negative in the emergency room. No signs of pneumonia. Cardiac work-up including EKG which is nonischemic and delta high sensitive troponin are normal at 3 and 4. No changesin EKG consistent with pericarditis/myocarditis. D-dimer is significantly elevated and CTA of the chest is obtained however this is negative for any acutePE. Patient does have some lung nodules which she is informed of the need for outpatient follow-up. Patient does have some mildly rhonchorous breath sounds and is given an aerosol treatment. Her breath sounds improved on repeat evaluation however she states she feels about the same. She is given IV fluids with some improvement of her tachycardia. Patient be treated as a viral syndrome and placed on a course of steroids given her rhonchi however I do not see any pneumonia, leukocytosis and she is afebrile in the ER so I do not think she requires antibiotics at this time. She is comfortable this plan of care. She is given return precautions. Encouraged follow-up with primary care doctor. Discharged home in stable condition. Patient is mildly hypertensive and tachycardic she is not tremulous and is acting appropriate. I do not think this is acute alcohol withdrawal. Lab Data Labs: Laboratory Results - last 24 hr 01/08/23 01/08/23 08:25 11:03 WBC 8.5 RBC 4.07 L Hgb 12.0 Hct 36.4 L MCV 89.4 MCH 29.5 MCHC 33.0 RDW Std Deviation 44.0 H RDW Coeff of Toya 13.5 Plt Count 277 MPV 9.8 Immature Gran % (Auto) 0.800 Neut % (Auto) 81.2 H Lymph % (Auto) 6.5 L [place] % (Auto) 7.7 Eos % (Auto) 3.3 Baso % (Auto) 0.5 Absolute Neuts (auto) 6.9 Absolute Lymphs (auto) 0.55 L Nucleated RBC % 0 Differential Comment SCANNED D-Dimer Quant (PE/DVT) 3.15 H* Sodium 132 L Potassium 3.6 Chloride 103 Carbon Dioxide 24.0 Anion Gap 5 BUN 10 Creatinine 0.66 Estim Creat Clear Calc 49.70 Est GFR (MDRD) Af Amer 114 Est GFR (MDRD) Non-Af 94 BUN/Creatinine Ratio 15.2 Glucose 145 H Calcium 9.3 Magnesium 2.2 Troponin I High Sens 3 4 B-Natriuretic Peptide 3.3 TSH 3.13 Radiography Diagnostic Testing: Clinical Impression(s) from Imaging Studies Chest CTA 01/08/23 09:11 IMPRESSION: Lung nodules. Short-term follow-up recommended. No evidence of pulmonary embolism. Electronically Signed: Sg Prudence, at 9:57 EDT Reading Location ID and State: [facility] / [place] Tel , Service support , Chest X-Ray 01/08/23 09:12 IMPRESSION: No radiographic evidence of acute cardiopulmonary disease. Electronically Signed: Sg Foss, at 9:39 EDT , Rhythm Strip Rhythm Strip: Sinus Tach Rate: 110 Ectopy: None EKG Initial EKG: Attestation: I personally reviewed and interpreted this EKG as follows: Interpretation: Sinus Tachycardia Comments: Sinus tachycardic at a rate of 110 bpm Left axis deviation Normal intervals Normal ST segments Compared to prior EKG on 04/02/2020 patient is no longer tachycardic, has a new left axis and does not currently have an incomplete right bundle chely block Discharge Plan Triage Chief Complaint: Shortness of Breath ED Provider: Jessica Lay Dx/Rx/DC Orders Clinical Impression: Acute dyspnea, Acute viral syndrome, Tachycardia Instructions: ED Dyspnea, ED Viral Syndrome (Adult) Prescriptions: New prednisone 20 mg tablet 40 mg PO DAILY Qty: 10 0RF albuterol sulfate [Ventolin HFA] 90 mcg/actuation HFA aerosol inhaler 1 - 2 puff inhalation Q4H PRN PRN (Reason: Wheezing) Qty: 1 0RF No Action omeprazole 40 mg capsule,delayed release(DR/EC) 40 mg PO QAM Qty: 90 3RF atorvastatin 20 MG tablet 20 mg PO QHS Qty: 30 0RF lisinopril 10 MG tablet 10 mg PO DAILY Qty: 30 0RF aspirin 81 MG tablet,chewable 81 mg PO DAILY@0800 Qty: 30 0RF folic acid 1 MG tablet 1 mg PO DAILY Qty: 30 0RF ergocalciferol (vitamin D2) 50,000 UNIT capsule 50,000 unit PO Q7D Qty: 8 0RF sucralfate [Carafate] 1 gram tablet 1 g PO 4X/DAY Qty: 60 0RF Primary Care Provider: Amor Narvaez Referrals: Amor Narvaez DO [Primary Care Provider] - Activity Restrictions/Additional Instructions: Your work-up showed some pulmonary nodules but otherwise no signs of pneumonia, stress on the heart, blood clot in the lungs or electrolyte abnormalities. We will treat you as if there is a viral syndrome that is causing this. If your symptoms worsen or change please return to the emergency room. Disposition Disposition: Home, Self Care What to do if you have Problems For any increased pain, shortness of breath, bleeding, nausea or vomiting, chestpain, or any unexpected problems, contact your Primary Care Provider. Call [facility] ([phone]) or report to the closest Emergency Room. Call 911 if necessary. 01/08/23 1221 <Electronically signed by Jessica Lay DO> Cosigner Signature (if applicable): CC: Dr. Amor Narvaez DO ~ Signed [facility] Work Phone: Evaluation note Note Date & Type Note Facility Evaluation note No assessment information availa ble [facility] Work Phone: Evaluation note Note Date & Type Note Facility Evaluation note Diagnosis Onset Date Esophageal obstruction due to food impaction acute [facility] Work Phone: Evaluation note Note Date & Type Note Facility Evaluation note Diagnosis Onset Date Esophageal obstruction due to food impaction acute Cellulitis of left lower ext remity without foot acute [facility] Work Phone: History and physical note Note Date & Type Note Facility History and physical note Note Date/Time June 19, 2023 11:29am [facility] Medical Records Department [address] [place] [address] History & Physical Exam 06/19/23 1128 MR#: [id number] Acct: [id number] Name: HUNTER WALKER Rep #:[id number] : 1955 68 From: Leo Padilla DO PCP: Dr. Amor Narvaez, DO Status:[facility] Location: [place] [address] History and Physical Date of Admission: 06/19/23 67 F who presents to the office today for f/u ED visit. Presented to ED on 06/11/22 for food stuck in esophagus. Dr Padilla treated severe Schatzki ring. She was treated with one month of omeprazole 40 mg daily, no adverse effects. She had had dysphagia x 5 yrs. No dysphagia since her EGD. Her bx is positive for Rudolph's, negative for dysplasia. She never gets heartburn or acid reflux. No abd pain. No nausea, vomiting, early satiety, diarrhea, constipation, melena,hematochezia. 06/12/22 EGD Impression: ? - Food in the lower third of the esophagus. ? Removal was successful. ? - Severe Schatzki ring. Dilated. ? - Z-line irregular, 38 cm from the incisors. ? Biopsied. ? - LA Grade C erosive esophagitis. Treated with ? a heater probe. ? - Medium-sized hiatal hernia. ? - No gross lesions in the first portion of the ? duodenum. MICROSCOPIC DIAGNOSIS Distal esophagus, biopsy: Gastroesophageal junction with chronic inflammation. Changes of reflux. 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 No evidence of dysplasia ROS Const Constitutional: No fatigue ENT ENT: Positive for difficulty swallowing Gastro GI: Positive for difficulty swallowing; No abdominal pain, belching, bloating, change in bowel habits, change in stool character, coffee ground emesis, constipation, cramping, diarrhea, heartburn, feeling full early, excessive flatus, incontinent of stools, Vomiting blood/hematemesis, Blood in stool, loose stools, Black,tarry stools, nausea/dyspepsia, pain with swallowing, vomiting or other Musc Musculoskeletal: No joint pain Skin Skin: No yellowing of the eye or itchy eyes Psych Psychiatric: No anxiety and No depression Endo Endocrine: No fatigue Aller/Imm Allergy/Immunologic: No itchy eyes Mukesh/Lymp Hematologic/Lymphatic: No easy bleeding or easy bruising Exam Const General: cooperative and comfortable Nutritional Appearance: overweight Orientation: alert, awake and oriented x3 Quality Reporting Tobacco Screening ([facility] [address]) Smoking Status: Former smoker Assessment and Plan Assessment and Plan (1) Rudolph's esophagus: Status: Acute Plan: 67 yr old female with hx food stuck in esophagus due to severe Schatzki ring, Donovan found LA Grade C reflux esophagitis, bx positive for Rudolph's, negative for dysplasia. We discussed those findings, hiatal hernia, need to remain on omeprazole 40 mg QAM indefinitely. Will repeat EGD in 05/2023 or 06/2023. She will notify us for any dysphagia prior to that. Medications: Changed From omeprazole 40 mg PO DAILY 30 caps 0RF To omeprazole 40 mg PO QAM 90 caps 3RF I have examined the patient and the H&P has been reviewed. There are no clinicalchanges since date of exam. 06/19/23 1128 <Electronically signed by Leo Padilla DO> Cosigner Signature (if applicable): CC: Dr. Amor Narvaez, DO; Leo Padilla, DO~ Signed [facility] Work Phone: Hospital Discharge instructions Note Date & Type Note Facility Hospital Discharge instructions Additional Instructions Gallbladder ultrasound normal. Labs are all normal. Take medications as prescribed. Monitor for blood in the stools. Follow-up with GI. Return if any worsening symptoms. [facility] Work Phone: Hospital Discharge instructions Note Date & Type Note Facility Hospital Discharge instructions Additional Instructions Your work-up showed some pulmonary nodules but otherwise no signs of pneumonia, stress on the heart, blood clot in the lungs or electrolyte abnormalities. We will treat you as if there is a viral syndrome that is causing this. If your symptoms worsen or change please return to the emergency room. [facility] Work Phone: Chief Complaint and Reason for Visit Chief Complaint TIA WATCHING ANNUALL Y Chief Complaint TIA WATCHING ANNUALL Y foregin body epigastroc/throat Chief Complaint TIA WATCHING ANNUALL Y foregin body epigastroc/throat Reason for Visit Esophageal obstructi on due to food impaction Chief Complaint foregin body epigastroc/throat LT LEG RED, SWOLLEN/POSSIBLE CELLULITIS LEFT LOWER LEG PAIN Reason for Visit Esophageal obstructi on due to food impaction Cellulitis of left lower extremity without foot Chief Complaint sob Chief Complaint sob LUNG NODUES FOUND ON PREVIOUS CHEST CT Family History No Family History Records Found Relationship Condition Age at Onset Recorded Date/T delmi Unknown Family History?Heart Disease Unknown January 11, 2018 5:45pm Family History?Heart Disease Unknown January 11, 2018 5:45pm Relationship Condition Age at Onset Recorded Date/T delmi Unknown Family History?Heart Disease Unknown January 11, 2018 4:45pm Family History?Heart Disease Unknown January 11, 2018 4:45pm Advance Directives No Advanced Directives Records Found Advance Directive Response Recorded Date/ Time Living Will No April 02 7:53pm Power of Armored Car Guard And Driver No April 02, 2020 7:53pm Advance Directive Response Recorded Date/ Time Living Will No June 12 8:12am Power of Armored Car Guard And Driver No June 12, 2022 8:12am Advance Directive Response Recorded Date/ Time Living Will No January 08, 2023 7:44am Power of Armored Car Guard And Driver No January 08 7:44am Advance Directive Response Recorded Date/ Time Living Will No June 12 023 2:09pm Power of Armored Car Guard And Driver No June 12, 2023 2:09pm Summary Purpose Additional Source Comments Goals (unrecognized section and content) Goals may be documented in a n alternate sectionGoals may be documented in an alternate sectionGoals may be documented in an alternate sectionGoals may be documented in an alternate section Care Teams (unrecognized sec tion and content) Team Status: Active Member Role Status Dates Mendez Varma Family Provider Active Dr. Amor Narvaez DO Primary Care Provider Active Team Status: Active Member Role Status Dates Mendez [facility] Primary Care Provider Active Dr. Leo Padilla , Attending Provider Active Team Status: Inactive Member Role Status Dates Mendez Avani Primary Care Provider, Referring Provider Active Ean CAMEJO, PA Attending Provider Active Team Status: Active Member Role Status Dates Dr. Amor Narvaez DO Primary Care Provider Active Dr. Óscar Gagnon MD Attending Provider Active Team Status: Inactive Member Role Status Dates Mendez Avani Primary Care Provider Active Dr. Jorge Luis Banda DO Attending Provider, Emergency Provide r Active Team Status: Inactive Member Role Status Dates Mendez [facility] Primary Care Provider Active Dr. Taurus Strong MD Emergency Provider Active Dr. Leo Padilla DO Attending Provider, Referring Provider Active Team Status: Inactive Member Role Status Dates Dr. Amor Narvaez DO Primary Care Provider, Attendin g Provider Active Team Status: Active Member Role Status Dates Mendez Avani [facility] Family Provider Active Dr. Amor Narvaez DO Primary Care Provider Active Team Status: Inactive Member Role Status Dates Dr. Amor Narvaez DO Primary Care Provider Active Dr. Jessica Lay DO Emergency Provider Active Team Status: Inactive Member Role Status Dates Dr. Amor Narvaez DO Primary Care Provider Active Dr. Jessica Lay DO Attending Provider, Emergency P rovider Active Team Status: Inactive Member Role Status Dates Dr. Amor Narvaez DO Primary Care Provider Active [facility] Attending Provider, Referring Prov ider Active Team Status: Active Member Role Status Dates Dr. Amor Narvaez DO Primary Care Provider, Referrin g Provider Active Dr. Leo Padilla DO Attending Provider, Other Prov ider Active Team Status: Inactive Member Role Status Dates Dr. Amor Narvaez , Primary Care Provider, Matthew snow Provider Active Dr. Leo Padilla , DO Attending Provider Active INFORMATION SOURCE (unrecogn ized section and content) DATE CREATED AUTHOR 03/04/2025 [facility] FOR RECORDS PERTAINING TO PATIENTS WHO ARE OR HAVE BEEN ENROLLED IN A CHEMICAL DEPENDENCY/SUBSTANCEABUSE PROGRAM, SOME INFORMATION MAY BE OMITTED. This clinical summary was aggregated from multiple sources. Caution should be exercised in using it in the provision of clinical care. This summary normalizes information from multiple sources, and as a consequence, information in this document may materially change the coding, format and clinical context of patient data. In addition, data may be omitted in some cases. CLINICAL DECISIONS SHOULD BE BASED ON THE PRIMARY CLINICAL RECORDS. [employer] provides no warranty or guarantee of the accuracy or completeness of information in this document.
== END | disposition home or self-care (01) ==
LOC: CT 12:41
PROVIDERS: PCP Family Medicine; Referring Provider Nurse Practitioner Family; Visit Provider Nurse Practitioner Family
DX: I65.23 Occlusion and stenosis of bilateral carotid arteries (principal); R91.8 Other nonspecific abnormal finding of lung field
CPT/HCPCS: 71260; 93880; Q9967